=== PATIENT | female | born 1950 | race Hispanic/Latino ===

== ENCOUNTER 2022-09-02 11:56 | Emergency (ER) | payer OTHER ==
--- OUTSIDE RECORDS SUMMARY | 2022-09-02 12:01 | XMS REPORT | Continuity of Care Document ---
:1950 Author Organization [facility] t Address [address] [facility] [address] [place] [address] Care Team Providers Name Role Phone Pcp, Patient Does Not Have A Primary Care Physician [phone] Pob, [facility] Main Attending Clinician Unavailable Madiha Chow MD Attending Clinician MADIHA CHOW Attending Clinician Unavailable Doctor Unassigned, [place] Attending Clinician Unavailable JIGAR GAO Attending Clinician Unavailable Jigar Subramanian Attending Clinician URBANO SCHNEIDER Attending Clinician Unavailable Urbano Schneider MD Attending Clinician Radiology Attending Clinician Unavailable RADIOLOGY Attending Clinician Unavailable ALEX HICKS Attending Clinician Unavailable Alex Sanders Attending Clinician LIZ FORD Attending Clinician Unavailable Liz Ford DO Attending Clinician Skip Baptiste MD Attending Clinician SKIP BAPTISTE Attending Clinician Unavailable VAUGHN BARBA Attending Clinician Unavailable Vaughn Barba MD Attending Clinician JESSI VELASQUEZ Attending Clinician Unavailable WILLIAM DUMONT Attending Clinician Unavailable SEVERINO TAYLOR Attending Clinician Unavailable JIGAR GAO Admitting Clinician Unavailable URBANO SCHNEIDER Admitting Clinician Unavailable ALEX HICKS Admitting Clinician Unavailable LIZ FORD Admitting Clinician Unavailable VAUGHN BARBA Admitting Clinician Unavailable SEVERINO TAYLOR Admitting Clinician Unavailable Payers Payer Name Policy Type Policy Number Effective Date Expiration Date Ruchi rosario MEDICARE PART A [id number] 1993 \\T\\ B 00:00:[address] [facility] [id number] 2009 00:00:00 Problems Condition Condition Condition Status Onset Resolution Last Treating Co mments Source Name Details Category Date Date Treatment Clinician Date [place] Active 2017-04 Univers overdose overdose 2-21 ity of 00:00: [address] [place] Active 2017-04 Univers toxicity toxicity 2-21 ity of 00:00: [address] [place] Active 2017-04 Univers overdose overdose 2-21 ity of 00:00: [address] Allergies, Adverse Reactions, Alerts Allergy Allergy Status Severity Reaction(s) Onset Inactive Treating Comm ents Source Name Type Date Date Clinician NO KNOWN Drug Active Univers ALLERGIE Class ity of S [facility] Social History Social Habit Start Date Stop Date Quantity Comments Source History of Current smoker University of tobacco use [facility] Exposure to 2022-07-28 2022-08-07 Not sure [facility] SARS-CoV-2 00:00:00 09:53:00 [facility] (event) [place] Alcohol intake 2022-07-09 2022-07-09 Current University of 00:00:00 00:00:00 non-drinker of [facility] alcohol (finding) [place] Tobacco use and 2018-03-21 2018-03-21 Former smokeless Uni versity of exposure 00:00:00 00:00:[address] [facility] [place] Sex Assigned At [birth year] Universit y of 00:00:00 00:00:00 [facility] Smoking Status Start Date Stop Date Source Ex-smoker 2018-03-21 00:00:00 2018-03-21 00:00:00 Universi ty of [facility] Medications Ordered Filled Start Stop Current Ordering Indication Dosage Frequency Signature Comments Components Source Medication Medication Date Date Medication? Clinician (SIG) Name Name ibuprofen No 600mg 600 mg, Uni vers (IBU) 09-02 Oral, ity of tablet 600 05:30: 04:30 ONCE, 1 [place] mg 00 :00 dose, On Medical 09/02/21 Branch at 0030, [place] acetaminoph No 1000mg 1,000 mg, Univers en 09-02 Oral, ity of (TYLENOL) 05:30: 04:29 [place] dose, On Medical 1,000 mg 09/02/21 Bran h at 0030, [place] OXYBUTYNIN Yes BID Univers CHLORIDE 5 1-15 ity of MG ORAL TAB 10:50: [address] FLUoxetine Yes 20mg Take 20 mg U nivers 20 mg 1-15 by mouth ity of capsule 10:50: daily. [address] pantoprazol Yes 20mg Take 20 mg Univers e 20 mg EC 1-15 by mouth ity o f tablet 10:50: daily. [address] levothyroxi Yes 75ug Take 75 Uni vers ne 75 mcg 1-15 mcg by ity of tablet 10:50: mouth [place] [address] every Medical morning. Branch benztropine Yes 1mg Take 1 mg U nivers 1 mg tablet 1-15 by mouth ity of 10:50: daily. [address] QUEtiapine Yes 100mg Take 100 Un janey 100 mg 1-15 mg by ity of tablet 10:50: mouth [place] [address] daily. Medical Branch OXYBUTYNIN Yes BID Univers CHLORIDE 5 1-15 ity of MG ORAL TAB 10:50: [address] FLUoxetine Yes 20mg Take 20 mg U nivers 20 mg 1-15 by mouth ity of capsule 10:50: daily. [address] pantoprazol 0 Yes 20mg Take 20 mg Univers e 20 mg EC 1-15 by mouth ity o f tablet 10:50: daily. [address] levothyroxi 0 Yes 75ug Take 75 Uni vers ne 75 mcg 1-15 mcg by ity of tablet 10:50: mouth [place] 45 every Medical morning. Branch benztropine 0 Yes 1mg Take 1 mg U nivers 1 mg tablet 1-15 by mouth ity of 10:50: daily. [address] QUEtiapine 0 Yes 100mg Take 100 Un janey 100 mg 1-15 mg by ity of tablet 10:50: mouth [place] 45 daily. Medical Branch OXYBUTYNIN 0 Yes BID Univers CHLORIDE 5 1-15 ity of MG ORAL TAB 10:50: [address] FLUoxetine 0 Yes 20mg Take 20 mg U nivers 20 mg 1-15 by mouth ity of capsule 10:50: daily. [address] pantoprazol 0 Yes 20mg Take 20 mg Univers e 20 mg EC 1-15 by mouth ity o f tablet 10:50: daily. [address] levothyroxi Yes 75ug Take 75 Uni vers ne 75 mcg 1-15 mcg by ity of tablet 10:50: mouth [place] [address] every Medical morning. Branch benztropine 0 Yes 1mg Take 1 mg U nivers 1 mg tablet 1-15 by mouth ity of 10:50: daily. [address] QUEtiapine Yes 100mg Take 100 Un janey 100 mg 1-15 mg by ity of tablet 10:50: mouth [place] 45 daily. Medical Branch OXYBUTYNIN 0 Yes BID Univers CHLORIDE 5 1-15 ity of MG ORAL TAB 10:50: [address] FLUoxetine 0 Yes 20mg Take 20 mg U nivers 20 mg 1-15 by mouth ity of capsule 10:50: daily. [address] pantoprazol 0 Yes 20mg Take 20 mg Univers e 20 mg EC 1-15 by mouth ity o f tablet 10:50: daily. [address] levothyroxi 0 Yes 75ug Take 75 Uni vers ne 75 mcg 1-15 mcg by ity of tablet 10:50: mouth [place] 45 every Medical morning. Branch benztropine 0 Yes 1mg Take 1 mg U nivers 1 mg tablet 1-15 by mouth ity of 10:50: daily. [address] QUEtiapine 0 Yes 100mg Take 100 Un j[place] 100 mg 1-15 mg by ity of tablet 10:50: mouth [place] 45 daily. Medical Branch OXYBUTYNIN 0 Yes BID Univers CHLORIDE 5 1-15 ity of MG ORAL TAB 10:50: [address] FLUoxetine 0 Yes 20mg Take 20 mg U nivers 20 mg 1-15 by mouth ity of capsule 10:50: daily. [address] pantoprazol 0 Yes 20mg Take 20 mg Univers e 20 mg EC 1-15 by mouth ity o f tablet 10:50: daily. [address] Branch levothyroxi Yes 75ug Take 75 Uni vers ne 75 mcg 1-15 mcg by ity of tablet 10:50: mouth [place] 45 every Medical morning. Branch benztropine 0 Yes 1mg Take 1 mg U nivers 1 mg tablet 1-15 by mouth ity of 10:50: daily. [address] QUEtiapine Yes 100mg Take 100 Un janey 100 mg 1-15 mg by ity of tablet 10:50: mouth [place] 45 daily. Medical Branch OXYBUTYNIN 0 Yes BID Univers CHLORIDE 5 1-15 ity of MG ORAL TAB 10:50: [address] FLUoxetine Yes 20mg Take 20 mg U nivers 20 mg 1-15 by mouth ity of capsule 10:50: daily. [address] pantoprazol Yes 20mg Take 20 mg Univers e 20 mg EC 1-15 by mouth ity o f tablet 10:50: daily. [address] levothyroxi 0 Yes 75ug Take 75 Uni vers ne 75 mcg 1-15 mcg by ity of tablet 10:50: mouth [place] 45 every Medical morning. Branch benztropine 0 Yes 1mg Take 1 mg U nivers 1 mg tablet 1-15 by mouth ity of 10:50: daily. [address] QUEtiapine 0 Yes 100mg Take 100 Un janey 100 mg 1-15 mg by ity of tablet 10:50: mouth [place] 45 daily. Medical Branch OXYBUTYNIN 0 Yes BID Univers CHLORIDE 5 1-15 ity of MG ORAL TAB 10:50: [address] FLUoxetine 0 Yes 20mg Take 20 mg U nivers 20 mg 1-15 by mouth ity of capsule 10:50: daily. [address] pantoprazol 0 Yes 20mg Take 20 mg Univers e 20 mg EC 1-15 by mouth ity o f tablet 10:50: daily. [address] levothyroxi 0 Yes 75ug Take 75 Uni vers ne 75 mcg 1-15 mcg by ity of tablet 10:50: mouth [place] [address] every Medical morning. Branch benztropine 0 Yes 1mg Take 1 mg U nivers 1 mg tablet 1-15 by mouth ity of 10:50: daily. [address] QUEtiapine 0 Yes 100mg Take 100 Un janey 100 mg 1-15 mg by ity of tablet 10:50: mouth [place] 45 daily. Medical Branch OXYBUTYNIN 0 Yes BID Univers CHLORIDE 5 1-15 ity of MG ORAL TAB 10:50: [address] FLUoxetine Yes 20mg Take 20 mg U nivers 20 mg 1-15 by mouth ity of capsule 10:50: daily. [address] pantoprazol 0 Yes 20mg Take 20 mg Univers e 20 mg EC 1-15 by mouth ity o f tablet 10:50: daily. [address] levothyroxi 0 Yes 75ug Take 75 Uni vers ne 75 mcg 1-15 mcg by ity of tablet 10:50: mouth [place] [address] every Medical morning. Branch benztropine 0 Yes 1mg Take 1 mg U nivers 1 mg tablet 1-15 by mouth ity of 10:50: daily. [address] QUEtiapine 0 Yes 100mg Take 100 Un [place] 100 mg 1-15 mg by ity of tablet 10:50: mouth [place] [address] daily. Medical Branch OXYBUTYNIN 0 Yes BID Univers CHLORIDE 5 1-15 ity of MG ORAL TAB 10:50: [address] FLUoxetine 0 Yes 20mg Take 20 mg U nivers 20 mg 1-15 by mouth ity of capsule 10:50: daily. [address] pantoprazol 0 Yes 20mg Take 20 mg Univers e 20 mg EC 1-15 by mouth ity o f tablet 10:50: daily. [address] levothyroxi 0 Yes 75ug Take 75 Uni vers ne 75 mcg 1-15 mcg by ity of tablet 10:50: mouth [place] 45 every Medical morning. Branch benztropine 0 Yes 1mg Take 1 mg U nivers 1 mg tablet 1-15 by mouth ity of 10:50: daily. [address] QUEtiapine 0 Yes 100mg Take 100 Un [place]aney 100 mg 1-15 mg by ity of tablet 10:50: mouth [place] 45 daily. Medical Branch OXYBUTYNIN 0 Yes BID Univers CHLORIDE 5 1-15 ity of MG ORAL TAB 10:50: [address] FLUoxetine 0 Yes 20mg Take 20 mg U nivers 20 mg 1-15 by mouth ity of capsule 10:50: daily. [address] pantoprazol 0 Yes 20mg Take 20 mg Univers e 20 mg EC 1-15 by mouth ity o f tablet 10:50: daily. [address] levothyroxi 0 Yes 75ug Take 75 Uni vers ne 75 mcg 1-15 mcg by ity of tablet 10:50: mouth [place] [address] every Medical morning. Branch benztropine 0 Yes 1mg Take 1 mg U nivers 1 mg tablet 1-15 by mouth ity of 10:50: daily. [address] QUEtiapine 0 Yes 100mg Take 100 Un [place] 100 mg 1-15 mg by ity of tablet 10:50: mouth [place] [address] daily. Medical Branch OXYBUTYNIN 0 Yes BID Univers CHLORIDE 5 1-15 ity of MG ORAL TAB 10:50: [address] FLUoxetine 0 Yes 20mg Take 20 mg U nivers 20 mg 1-15 by mouth ity of capsule 10:50: daily. [address] pantoprazol 0 Yes 20mg Take 20 mg Univers e 20 mg EC 1-15 by mouth ity o f tablet 10:50: daily. [address] levothyroxi 0 Yes 75ug Take 75 Uni vers ne 75 mcg 1-15 mcg by ity of tablet 10:50: mouth [place] 45 every Medical morning. Branch benztropine 0 Yes 1mg Take 1 mg U nivers 1 mg tablet 1-15 by mouth ity of 10:50: daily. [address] QUEtiapine 0 Yes 100mg Take 100 Un janey 100 mg 1-15 mg by ity of tablet 10:50: mouth [place] 45 daily. Medical Branch OXYBUTYNIN 0 Yes BID Univers CHLORIDE 5 1-15 ity of MG ORAL TAB 10:50: [address] FLUoxetine Yes 20mg Take 20 mg U nivers 20 mg 1-15 by mouth ity of capsule 10:50: daily. [address] pantoprazol Yes 20mg Take 20 mg Univers e 20 mg EC 1-15 by mouth ity o f tablet 10:50: daily. [address] levothyroxi Yes 75ug Take 75 Uni vers ne 75 mcg 1-15 mcg by ity of tablet 10:50: mouth [place] 45 every Medical morning. Branch benztropine Yes 1mg Take 1 mg U nivers 1 mg tablet 1-15 by mouth ity of 10:50: daily. [address] QUEtiapine Yes 100mg Take 100 Un janey 100 mg 1-15 mg by ity of tablet 10:50: mouth [place] 45 daily. Medical Branch OXYBUTYNIN Yes BID Univers CHLORIDE 5 1-15 ity of MG ORAL TAB 10:50: [address] FLUoxetine Yes 20mg Take 20 mg U nivers 20 mg 1-15 by mouth ity of capsule 10:50: daily. [address] pantoprazol Yes 20mg Take 20 mg Univers e 20 mg EC 1-15 by mouth ity o f tablet 10:50: daily. [address] levothyroxi 0 Yes 75ug Take 75 Uni vers ne 75 mcg 1-15 mcg by ity of tablet 10:50: mouth [place] 45 every Medical morning. Branch benztropine 0 Yes 1mg Take 1 mg U nivers 1 mg tablet 1-15 by mouth ity of 10:50: daily. [address] QUEtiapine Yes 100mg Take 100 Un janey 100 mg 1-15 mg by ity of tablet 10:50: mouth [place] 45 daily. Medical Branch diclofenac 2020-1 Yes Univers 75 mg EC 2-03 ity of tablet 00:00: [place] Medical Branch diclofenac 2019-04 Yes Univers 75 mg EC 2-03 ity of tablet 00:00: [place] Medical Branch diclofenac 2019-04 Yes Univers 75 mg EC 2-03 ity of tablet 00:00: [place] Medical Branch diclofenac 2019-04 Yes Univers 75 mg EC 2-03 ity of tablet 00:00: [place] Medical Branch diclofenac 2019-04 Yes Univers 75 mg EC 2-03 ity of tablet 00:00: [place] Medical Branch diclofenac 2019-04 Yes Univers 75 mg EC 2-03 ity of tablet 00:00: [place] Medical Branch diclofenac 2019-04 Yes Univers 75 mg EC 2-03 ity of tablet 00:00: [place] [address] Medical Branch diclofenac 2019-04 Yes Univers 75 mg EC 2-03 ity of tablet 00:00: [place] [address] Medical Branch diclofenac 2019-04 Yes Univers 75 mg EC 2-03 ity of tablet 00:00: [place] [address] Medical Branch diclofenac 2019-04 Yes Univers 75 mg EC 2-03 ity of tablet 00:00: [place] [facility] Branch diclofenac 2019-04 Yes Univers 75 mg EC 2-03 ity of tablet 00:00: [place] [address] Medical Branch diclofenac 2019-04 Yes Univers 75 mg EC 2-03 ity of tablet 00:00: [place] [address] Medical Branch diclofenac 2019-04 Yes Univers 75 mg EC 2-03 ity of tablet 00:00: [place] [address] Medical Branch METFORMIN 2017-04 Yes 1 tab po Univ ers 1,000 MG 2-23 BID ity of ORAL TAB 12:14: [address] ARTIFICIAL 2017-04 Yes prn Univers TEAR (DEXT 2-23 ity of 40-HPM) 12:14: [address] TYLENOL 2017-04 Yes 2tabs po Univer s EXTRA 2-23 BID prn ity of STRENGTH 12:14: [place] [address] [place] [address] TAB Branch BENADRYL 2017-04 Yes 50mg po Univer s ALLERGY 25 2-23 q12hrs prn ity of MG ORAL TAB 12:14: [address] METFORMIN 2017-04 Yes 1 tab po Univ ers 1,000 MG 2-23 BID ity of ORAL TAB 12:14: [address] ARTIFICIAL 2017-04 Yes prn Univers TEAR (DEXT 2-23 ity of 40-HPM) 12:14: [address] TYLENOL 2017-04 Yes 2tabs po Univer s EXTRA 2-23 BID prn ity of STRENGTH 12:14: [place] 500 MG ORAL Medical TAB Branch BENADRYL 2018 Yes 50mg po Univer s ALLERGY 25 2-23 q12hrs prn ity of MG ORAL TAB 12:14: [address] METFORMIN 2018 Yes 1 tab po Univ ers 1,000 MG 2-23 BID ity of ORAL TAB 12:14: [place] [address] Medical Branch ARTIFICIAL 2017-04 Yes prn Univers TEAR (DEXT 2-23 ity of 40-HPM) 12:14: [place] [address] Medical Branch TYLENOL 2017- Yes 2tabs po Univer s EXTRA 2-23 BID prn ity of STRENGTH 12:14: [place] 500 MG ORAL Medical TAB Branch BENADRYL 2017-04 Yes 50mg po Univer s ALLERGY 25 2-23 q12hrs prn ity of MG ORAL TAB 12:14: [address] METFORMIN 2018- Yes 1 tab po Univ ers 1,000 MG 2-23 BID ity of ORAL TAB 12:14: [place] [address] Medical Branch ARTIFICIAL 2017-04 Yes prn Univers TEAR (DEXT 2-23 ity of 40-HPM) 12:14: [place] [address] Medical Branch TYLENOL 2017- Yes 2tabs po Univer s EXTRA 2-23 BID prn ity of STRENGTH 12:14: [place] 500 MG ORAL Medical TAB Branch BENADRYL 2017-04 Yes 50mg po Univer s ALLERGY 25 2-23 q12hrs prn ity of MG ORAL TAB 12:14: [address] METFORMIN 2018- Yes 1 tab po Univ ers 1,000 MG 2-23 BID ity of ORAL TAB 12:14: [place] [address] Medical [place] ARTIFICIAL 2018 Yes prn Univers TEAR (DEXT 2-23 ity of 40-HPM) 12:14: [place] [address] Medical Branch TYLENOL 2018- Yes 2tabs po Univer s EXTRA 2-23 BID prn ity of STRENGTH 12:14: [place] 500 MG ORAL Medical TAB Branch BENADRYL 2018 Yes 50mg po Univer s ALLERGY 25 2-23 q12hrs prn ity of MG ORAL TAB 12:14: [address] METFORMIN 2018- Yes 1 tab po Univ ers 1,000 MG 2-23 BID ity of ORAL TAB 12:14: [place] [address] Medical Branch ARTIFICIAL 2017-04 Yes prn Univers TEAR (DEXT 2-23 ity of 40-HPM) 12:14: [address] Branch TYLENOL 2017-04 Yes 2tabs po Univer s EXTRA 2-23 BID prn ity of STRENGTH 12:14: [place] 500 MG ORAL Medical TAB Branch BENADRYL 2018 Yes 50mg po Univer s ALLERGY 25 2-23 q12hrs prn ity of MG ORAL TAB 12:14: [address] Branch METFORMIN 2018 Yes 1 tab po Univ ers 1,000 MG 2-23 BID ity of ORAL TAB 12:14: [place] [address] Medical Branch ARTIFICIAL 2017-04 Yes prn Univers TEAR (DEXT 2-23 ity of 40-HPM) 12:14: [address] Branch TYLENOL 2017-04 Yes 2tabs po Univer s EXTRA 2-23 BID prn ity of STRENGTH 12:14: [place] 500 MG ORAL Medical TAB Branch BENADRYL 2017-04 Yes 50mg po Univer s ALLERGY 25 2-23 q12hrs prn ity of MG ORAL TAB 12:14: [address] METFORMIN 2018 Yes 1 tab po Univ ers 1,000 MG 2-23 BID ity of ORAL TAB 12:14: [address] ARTIFICIAL 2017-04 Yes prn Univers TEAR (DEXT 2-23 ity of 40-HPM) 12:14: [address] Branch TYLENOL 2017-04 Yes 2tabs po Univer s EXTRA 2-23 BID prn ity of STRENGTH 12:14: [place] 500 MG ORAL Medical TAB Branch BENADRYL 2018 Yes 50mg po Univer s ALLERGY 25 2-23 q12hrs prn ity of MG ORAL TAB 12:14: [address] METFORMIN 2018- Yes 1 tab po Univ ers 1,000 MG 2-23 BID ity of ORAL TAB 12:14: [address] Branch ARTIFICIAL 2018 Yes prn Univers TEAR (DEXT 2-23 ity of 40-HPM) 12:14: [place] [address] Medical Branch TYLENOL 2017-04 Yes 2tabs po Univer s EXTRA 2-23 BID prn ity of STRENGTH 12:14: [place] 500 MG ORAL Medical TAB Branch BENADRYL 2017-04 Yes 50mg po Univer s ALLERGY 25 2-23 q12hrs prn ity of MG ORAL TAB 12:14: [address] METFORMIN 2018 Yes 1 tab po Univ ers 1,000 MG 2-23 BID ity of ORAL TAB 12:14: [address] ARTIFICIAL 2017-04 Yes prn Univers TEAR (DEXT 2-23 ity of 40-HPM) 12:14: [address] Branch TYLENOL 2017-04 Yes 2tabs po Univer s EXTRA 2-23 BID prn ity of STRENGTH 12:14: [place] 500 MG ORAL Medical TAB Branch BENADRYL 2017-04 Yes 50mg po Univer s ALLERGY 25 2-23 q12hrs prn ity of MG ORAL TAB 12:14: [address] METFORMIN 2017-04 Yes 1 tab po Univ ers 1,000 MG 2-23 BID ity of ORAL TAB 12:14: [address] ARTIFICIAL 2017-04 Yes prn Univers TEAR (DEXT 2-23 ity of 40-HPM) 12:14: [address] TYLENOL 2017-04 Yes 2tabs po Univer s EXTRA 2-23 BID prn ity of STRENGTH 12:14: [place] 500 MG ORAL Medical TAB Branch BENADRYL 2017-04 Yes 50mg po Univer s ALLERGY 25 2-23 q12hrs prn ity of MG ORAL TAB 12:14: [address] METFORMIN 2017-04 Yes 1 tab po Univ ers 1,000 MG 2-23 BID ity of ORAL TAB 12:14: [address] ARTIFICIAL 2017-04 Yes prn Univers TEAR (DEXT 2-23 ity of 40-HPM) 12:14: [address] TYLENOL 2017-04 Yes 2tabs po Univer s EXTRA 2-23 BID prn ity of STRENGTH 12:14: [place] 500 MG ORAL Medical TAB Branch BENADRYL 2017-04 Yes 50mg po Univer s ALLERGY 25 2-23 q12hrs prn ity of MG ORAL TAB 12:14: [address] METFORMIN 2017-04 Yes 1 tab po Univ ers 1,000 MG 2-23 BID ity of ORAL TAB 12:14: [address] ARTIFICIAL 2017-04 Yes prn Univers TEAR (DEXT 2-23 ity of 40-HPM) 12:14: [place] OPHTHALMIC 36 Medical Branch TYLENOL 2017-04 Yes 2tabs po Univer s EXTRA 2-23 BID prn ity of STRENGTH 12:14: [place] 500 MG ORAL 36 Medical TAB Branch BENADRYL 2017-04 Yes 50mg po Univer s ALLERGY 25 2-23 q12hrs prn ity of MG ORAL TAB 12:14: [place] 36 Medical Branch lithium 2017-04 Yes 300mg Take 1 Univers carbonate 2-23 tablet by ity o f 300 mg 00:00: mouth 2 [place] tablet 00 (two) Medical times Branch daily. cyanocobala 2017-04 Yes 1000ug Take 1,000 Univers min, 2-23 mcg by ity of vitamin 00:00: mouth [place] B-12, 1,000 00 daily. Medica l mcg Cap Branch lithium 2017-04 Yes 300mg Take 1 Univers carbonate 2-23 tablet by ity o f 300 mg 00:00: mouth 2 [place] tablet 00 (two) Medical times Branch daily. cyanocobala 2017-04 Yes 1000ug Take 1,000 Univers min, 2-23 mcg by ity of vitamin 00:00: mouth [place] B-12, 1,000 00 daily. Medica l mcg Cap Branch lithium 2017-04 Yes 300mg Take 1 Univers carbonate 2-23 tablet by ity o f 300 mg 00:00: mouth 2 [place] tablet 00 (two) Medical times Branch daily. cyanocobala 2017-04 Yes 1000ug Take 1,000 Univers min, 2-23 mcg by ity of vitamin 00:00: mouth [place] B-12, 1,000 00 daily. Medica l mcg Cap [place] lithium 2017-04 Yes 300mg Take 1 Univers carbonate 2-23 tablet by ity o f 300 mg 00:00: mouth 2 [place] tablet 00 (two) Medical times Branch daily. cyanocobala 2017-04 Yes 1000ug Take 1,000 Univers min, 2-23 mcg by ity of vitamin 00:00: mouth [place] B-12, 1,000 00 daily. Medica l mcg Cap [place] lithium 2017-04 Yes 300mg Take 1 Univers carbonate 2-23 tablet by ity o f 300 mg 00:00: mouth 2 [place] tablet 00 (two) Medical times Branch daily. cyanocobala 2017-04 Yes 1000ug Take 1,000 Univers min, 2-23 mcg by ity of vitamin 00:00: mouth [place] B-12, 1,000 00 daily. Medica l mcg Cap Branch lithium 2017-04 Yes 300mg Take 1 Univers carbonate 2-23 tablet by ity o f 300 mg 00:00: mouth 2 [place] tablet 00 (two) Medical times Branch daily. cyanocobala 2017-04 Yes 1000ug Take 1,000 Univers min, 2-23 mcg by ity of vitamin 00:00: mouth [place] B-12, 1,000 00 daily. Medica l mcg Cap [place] lithium 2017-04 Yes 300mg Take 1 Univers carbonate 2-23 tablet by ity o f 300 mg 00:00: mouth 2 [place] tablet 00 (two) Medical times Branch daily. cyanocobala 2017-04 Yes 1000ug Take 1,000 Univers min, 2-23 mcg by ity of vitamin 00:00: mouth [place] B-12, 1,000 00 daily. Medica l mcg Cap [place] lithium 2017-04 Yes 300mg Take 1 Univers carbonate 2-23 tablet by ity o f 300 mg 00:00: mouth 2 [place] tablet 00 (two) Medical times Branch daily. cyanocobala 2017-04 Yes 1000ug Take 1,000 Univers min, 2-23 mcg by ity of vitamin 00:00: mouth [place] B-12, 1,000 00 daily. Medica l mcg Cap [place] lithium 2017-04 Yes 300mg Take 1 Univers carbonate 2-23 tablet by ity o f 300 mg 00:00: mouth 2 [place] tablet 00 (two) Medical times Branch daily. cyanocobala 2017-04 Yes 1000ug Take 1,000 Univers min, 2-23 mcg by ity of vitamin 00:00: mouth [place] B-12, 1,000 00 daily. Medica l mcg Cap [place] lithium 2017-04 Yes 300mg Take 1 Univers carbonate 2-23 tablet by ity o f 300 mg 00:00: mouth 2 [place] tablet 00 (two) Medical times Branch daily. cyanocobala 2017-04 Yes 1000ug Take 1,000 Univers min, 2-23 mcg by ity of vitamin 00:00: mouth [place] B-12, 1,000 00 daily. Medica l mcg Cap [place] lithium 2017-04 Yes 300mg Take 1 Univers carbonate 2-23 tablet by ity o f 300 mg 00:00: mouth 2 [place] tablet 00 (two) Medical times Branch daily. cyanocobala 2017-04 Yes 1000ug Take 1,000 Univers min, 2-23 mcg by ity of vitamin 00:00: mouth [place] B-12, 1,000 00 daily. Medica l mcg Cap Branch lithium 2017-04 Yes 300mg Take 1 Univers carbonate 2-23 tablet by ity o f 300 mg 00:00: mouth 2 [place] tablet 00 (two) Medical times Branch daily. cyanocobala 2017-04 Yes 1000ug Take 1,000 Univers min, 2-23 mcg by ity of vitamin 00:00: mouth [place] B-12, 1,000 00 daily. Medica l mcg Cap Branch lithium 2017-04 Yes 300mg Take 1 Univers carbonate 2-23 tablet by ity o f 300 mg 00:00: mouth 2 [place] tablet 00 (two) Medical times Branch daily. cyanocobala 2017-04 Yes 1000ug Take 1,000 Univers min, 2-23 mcg by ity of vitamin 00:00: mouth [place] B-12, 1,000 00 daily. [facility] Immunizations Ordered Filled Immunization Date Status Comments [facility] e Immunization Name Name Td 2021-06-15 Completed University of 00:00:00 [facility] Td 2021-06-15 Completed University of 00:00:00 [facility] Td 2021-06-15 Completed University of 00:00:00 [facility] Td 2021-06-15 Completed University of 00:00:00 [facility] Td 2021-06-15 Completed University of 00:00:00 [facility] Td 2021-06-15 Completed University of 00:00:00 [facility] Td 2021-06-15 Completed University of 00:00:00 [facility] Td 2021-06-15 Completed University of 00:00:00 [facility] Td 2021-06-15 Completed University of 00:00:00 [facility] Td 2021-06-15 Completed University of 00:00:00 [facility] TD, NOS 2021-06-15 Completed University of 00:00:00 [facility] TD, NOS 2021-06-15 Completed University of 00:00:00 [facility] TD, NOS 2021-06-15 Completed University of 00:00:00 [facility] SARS-COV-2 COVID-19 2020-07-07 Completed [facility] VACCINE 00:00:00 [place] [facility] SARS-COV-2 COVID-19 2020-07-07 Completed Unive rsity of PFIZER VACCINE 00:00:00 [facility] SARS-COV-2 COVID-19 2020-07-07 Completed Unive rsity of PFIZER VACCINE 00:00:00 [facility] SARS-COV-2 COVID-19 2020-07-07 Completed Unive rsity of PFIZER VACCINE 00:00:00 [facility] SARS-COV-2 COVID-19 2020-07-07 Completed Unive rsity of PFIZER VACCINE 00:00:00 [facility] SARS-COV-2 COVID-19 2020-07-07 Completed Unive rsity of PFIZER VACCINE 00:00:00 [facility] SARS-COV-2 COVID-19 2020-07-07 Completed Unive rsity of PFIZER VACCINE 00:00:00 [facility] SARS-COV-2 COVID-19 2020-07-07 Completed Unive rsity of PFIZER VACCINE 00:00:00 [facility] SARS-COV-2 COVID-19 2020-07-07 Completed Unive rsity of PFIZER VACCINE 00:00:00 [facility] SARS-COV-2 COVID-19 2020-07-07 Completed Unive rsity of PFIZER VACCINE 00:00:00 [facility] SARS-COV-2 COVID-19 2020-07-07 Completed Unive rsity of PFIZER VACCINE 00:00:00 [facility] SARS-COV-2 COVID-19 2020-07-07 Completed Unive rsity of PFIZER VACCINE 00:00:00 [facility] SARS-COV-2 COVID-19 2020-07-07 Completed Unive rsity of PFIZER VACCINE 00:00:00 [facility] SARS-COV-2 COVID-19 2020-06-15 Completed Unive rsity of PFIZER VACCINE 00:00:00 [facility] SARS-COV-2 COVID-19 2020-06-15 Completed Unive rsity of PFIZER VACCINE 00:00:00 [facility] SARS-COV-2 COVID-19 2020-06-15 Completed Unive rsity of PFIZER VACCINE 00:00:00 [facility] SARS-COV-2 COVID-19 2020-06-15 Completed Unive rsity of PFIZER VACCINE 00:00:00 [facility] SARS-COV-2 COVID-19 2020-06-15 Completed Unive rsity of PFIZER VACCINE 00:00:00 [facility] SARS-COV-2 COVID-19 2020-06-15 Completed Unive rsity of PFIZER VACCINE 00:00:00 [facility] SARS-COV-2 COVID-19 2020-06-15 Completed Unive rsity of PFIZER VACCINE 00:00:00 [facility] SARS-COV-2 COVID-19 2020-06-15 Completed Unive rsity of PFIZER VACCINE 00:00:00 [facility] SARS-COV-2 COVID-19 2020-06-15 Completed Unive rsity of PFIZER VACCINE 00:00:00 [facility] SARS-COV-2 COVID-19 2020-06-15 Completed Unive rsity of PFIZER VACCINE 00:00:00 [facility] SARS-COV-2 COVID-19 2020-06-15 Completed Unive rsity of PFIZER VACCINE 00:00:00 [facility] SARS-COV-2 COVID-19 2020-06-15 Completed Unive rsity of PFIZER VACCINE 00:00:00 [facility] SARS-COV-2 COVID-19 2020-06-15 Completed Unive rsity of PFIZER VACCINE 00:00:00 [facility] Td 2020-04-07 Completed University of 00:00:00 [facility] Td 2020-04-07 Completed University of 00:00:00 [facility] Td 2020-04-07 Completed University of 00:00:00 [facility] Td 2020-04-07 Completed University of 00:00:00 [facility] Td 2020-04-07 Completed University of 00:00:00 [facility] Td 2020-04-07 Completed University of 00:00:00 [facility] Td 2020-04-07 Completed University of 00:00:00 [facility] Td 2020-04-07 Completed University of 00:00:00 [facility] Td 2020-04-07 Completed University of 00:00:00 [facility] Td 2020-04-07 Completed University of 00:00:00 [facility] TD, NOS 2020-04-07 Completed [facility] 00:00:00 [place] [facility] TD, NOS 2020-04-07 Completed University 00:00:00 [place] [facility] TD, NOS 2020-04-07 Completed University 00:00:00 [facility] Vital Signs Vital Name Observation Time Observation Value Comments Source Systolic blood 2022-07-09 13:00:00 134 mm[Hg] Univer sity of pressure [place] [facility] Diastolic blood 2022-07-09 13:00:00 73 mm[Hg] Unive rsity of pressure [facility] Heart rate 2022-07-09 13:00:00 81 /min Universi ty of [place] [facility] Body temperature 2022-07-09 13:00:00 36.22 Glenny Univ ersity of [place] [facility] Respiratory rate 2022-07-09 13:00:00 18 /min Univ ersity of [place] [facility] Body height 2022-07-09 13:00:00 167.6 cm Universi ty [facility] [place] [facility] Body weight 2022-07-09 13:00:00 49.896 kg Universi ty [facility] [place] [facility] BMI 2022-07-09 13:00:00 17.75 kg/m2 Universi ty [facility] [place] [facility] Oxygen saturation in 2022-07-09 13:00:00 99 /min University of Arterial blood by [facility] Pulse oximetry Branch Systolic blood 2021-10-18 02:42:00 129 mm[Hg] Univer sity of pressure [facility] Diastolic blood 2021-10-18 02:42:00 77 mm[Hg] Unive rsity of pressure [facility] Heart rate 2021-10-18 02:42:00 66 /min Universi ty [facility] [place] [facility] Body temperature 2021-10-18 02:42:00 37.06 Glenny Univ ersity of [place] [facility] Respiratory rate 2021-10-18 02:42:00 20 /min Univ ersity of [place] [facility] Body height 2021-10-18 02:42:00 167.6 cm [facility]i [facility] [place] [facility] Body weight 2021-10-18 02:42:00 49.76 kg Universi ty [facility] [place] [facility] BMI 2021-10-18 02:42:00 17.71 kg/m2 Universi ty [facility] [place] [facility] Oxygen saturation in 2021-10-18 02:42:00 97 /min University of Arterial blood by [facility] Pulse oximetry Branch Systolic blood 2021-09-02 02:40:00 143 mm[Hg] Univer sity of pressure [facility] Diastolic blood 2021-09-02 02:40:00 83 mm[Hg] Unive rsity of [facility] Heart rate 2021-09-02 02:40:00 83 /min Universi ty [facility] Body temperature 2021-09-02 02:40:00 37.78 Glenny [facility] Respiratory rate 2021-09-02 02:40:00 18 /min Univ ersity of [facility] Body weight 2021-09-02 02:40:00 50.485 kg Universi ty [facility] BMI 2021-09-02 02:40:00 17.96 kg/m2 Universi ty [facility] Oxygen saturation in 2021-09-02 02:40:00 96 /min University of Arterial blood by [facility] Pulse oximetry Branch Systolic blood 2021-07-28 06:00:00 126 mm[Hg] Univer sity of [facility] Diastolic blood 2021-07-28 06:00:00 65 mm[Hg] Unive rsity of [facility] Respiratory rate 2021-07-28 06:00:00 16 /min [facility] O[facility] saturation in 2021-07-28 06:00:00 99 /min University of Arterial blood by [facility] Pulse oximetry Branch Heart rate 2021-07-28 05:00:00 67 /min Universi ty [facility] Body temperature 2021-07-28 04:46:00 37.06 Glenny [facility] Body height 2021-07-28 04:46:00 167.6 cm Universi ty [facility] Body weight 2021-07-28 04:46:00 44.815 kg Univers ty [facility] BMI 2021-07-28 04:46:00 15.95 kg/m2 [facility] Procedures Procedure Date / Time Performed Performing Clinician Sourc e CBC WITH DIFF 2022-08-07 15:24:00 Skip Baptiste [facility] PHYSICIAN ORDERS 2022-08-07 05:01:00 Doctor Unassigned, No [facility] [place] Name [facility] XR CHEST 1 VW 2022-07-09 14:05:47 Jigar Gao [facility] Medical Branch PHYSICIAN ORDERS 2022-02-28 06:01:00 Doctor Unassigned, No [facility] Medical Branch XR FOOT 3+ VW LEFT 2021-10-18 03:15:35 Urbano Schneider [facility] XR KNEE 3 VW BILATERAL 2021-10-18 03:15:35 Urbano Schneider [facility]REFUSAL FOR 2021-10-18 02:36:32 Doctor Unassigned, No [facility] [place] DI[facility]NOSIS AND Name Medical Branch TREATMENT XR HAND 3+ VW LEFT 2021-09-27 15:18:08 Cash [facility] XR KNEE 3 VW RIGHT 2021-09-27 15:17:29 Cash [facility] NOTICE OF PRIVACY 2021-09-27 14:40:01 Doctor Unassigned, No Univ ersity [facility] Medical Branch CONSENT/REFUSAL FOR 2021-09-27 14:39:36 Doctor Unassigned, No [facility] Medical Branch TREATMENT ASSIGNMENT OF BENEFITS 2021-09-27 14:38:29 Doctor Unassigned, No [facility] [place] XR ELBOW >3 VW LEFT 2021-09-02 03:16:53 Alex Hicks [facility] XR FOREARM 2 VW LEFT 2021-09-02 03:16:53 Alex Hicks [facility] [place] XR HUMERUS 2 VW LEFT 2021-09-02 03:16:53 Alex Hicks [facility] Branch CONSENT/REFUSAL FOR 2021-09-02 02:32:15 Doctor Unassigned, No Un i[facility] of [place] DIAGNOSIS AND Name Medical Branch TREATMENT CT TRAUMA HEAD WO 2021-07-28 05:37:00 Liz Ford [facility] CONTRAST Medical Branch CT TRAUMA CERVICAL 2021-07-28 05:37:00 Liz Ford [facility] SPINE WO CONTRAST Medical Branch PHOSPHORUS 2021-06-21 15:00:00 Skip Baptiste [facility] URIC ACID 2021-06-21 15:00:00 [facility] 2021-06-21 15:00:00 Skip Baptiste [facility] VITAMIN B12, LEVEL 2021-06-21 15:00:00 Skip Baptiste Andriy [facility] IONIZED CALCIUM 2021-06-21 15:00:00 [facility] HEPATIC FUNCTION PANEL 2021-06-21 15:00:00 Skip Baptiste [facility] ([id number]) Medical Branch (ALB,T.PRO,BILI T,BU/BC,ALT,AST,ALK PHOS) BASIC METABOLIC PANEL 2021-06-21 15:00:00 Skip Baptiste [facility] (NA, K, CL, CO2, Medical Branch GLUCOSE, BUN, CREATININE, CA) LIPID PANEL 2021-06-21 15:00:00 Skip Baptiste [facility] ([id number])(TOTAL Medical Branch CHOLESTEROL, TRIGLYCERIDES, HDL) LITHIUM 2021-06-21 15:00:00 Skip Baptiste [facility] CBC WITH DIFF 2021-06-21 15:00:00 Emile Skip [facility] VITAMIN D, 25-OH 2021-06-21 15:00:00 [facility] 2021-06-21 05:01:00 Doctor Unassigned, No [facility] Encounters Start End Encounter Admission Attending Care Care Encounter Source Date/Time Date/Time Type Type Clinicians Facility Department ID 2022-08-10 Outpatient STLMLC STLMLC [id number] Common 11:19:[id number] [facility] 2021-09-27 Outpatient STLMLC STLMLC [id number] Common 09:56:[address] [facility] 2021-09-26 Outpatient STLMLC STLMLC [id number] Common 09:17:[address] [facility] 2021-09-25 Outpatient STLMLC STLMLC [id number] Common 13:48:03 Spirit - [facility] 2021-01-29 Emergency [facility] [id number] Univers 15:07:50 ity of [facility] 2021-01-28 Emergency [facility] [id number] Univers 15:53:49 ity of [facility] 2021-01-28 Emergency [facility] [id number] Univers 12:01:43 ity of [facility] 2022-08-07 2022-08-07 Shelter Case Manager Latasha, Adc Lab Main [facility] 1.2.8 40.114 [id number] Univers 10:00:00 10:15:00 [id number] [id number] [id number] [address] 2022-08-07 2022-08-07 Outpatient Gustavo CHOW [facility] [id number] Univers 10:00:00 10:00:00 [facility]-07 2022-08-07 Orders Doctor CONRAD [id number] Univers 00:00:00 00:00:00 Only Unassigned, DANAY [id number] ity of [place] [facility] 4.2.7.2.686 Nikita [id number] [facility] [address] [place] 2022-07-09 2022-07-09 Emergency [facility] [id number] Univers 07:58:00 09:34:00 EDYO ity [facility] 2022-07-09 2022-07-09 Emergency [facility] [id number] Univers 07:58:00 09:34:00 Jigar MCKEON [id number] ity [facility] 4.2.7.2.686 [facility] [id number] [facility] 084 Branch 2022-02-28 2022-02-28 Shelter Case Manager Latasha, Adc Lab Main [facility] 1.2.8 40.114 [id number] Univers 08:45:00 09:00:00 Visit Madiha Chow LINDA [id number] ity [facility] [place] [phone] Pa dical NAL [address] [facility] 2022-02-28 2022-02-28 Outpatient R CLAUDINE [facility] [id number] Univers 08:45:00 08:45:00 MADIHA ity of [facility] 2022-02-28 2022-02-28 Orders Doctor CONRAD 1.2.840.114 [id number] Univers 00:00:00 00:00:00 Only Unassigned, DANAY [id number] ity of [place] [facility] 4.2.7.2.686 Nikita as [id number] [facility] [address] [place] 2021-10-17 2021-10-17 Emergency X [facility] ERT [id number] Univers 21:49:00 23:05:00 URBANO bell of [facility] 2021-10-17 2021-10-17 Emergency [facility] [id number] Univers 21:49:00 23:05:00 Urbano MCKEON [id number] ity of [place] [id number] [facility] [address] [place] 2021-09-27 2021-09-27 Hospital Radiology [facility] 1.2.840.114 [id number] Univers 09:35:31 23:59:00 Encounter LINDA [id number] ity [place] [id number] [facility] [address] [place] 2021-09-27 2021-09-27 Shelter Case Manager Latasha, Chanda Lab Main [facility] 1.2.8 40.114 [id number] Univers 10:30:00 10:45:00 Visit Madiha Chow LINDA [id number] ity of [facility] 4[place] [id number] Pa dical NAL [address] [facility] 2021-09-27 2021-09-27 Outpatient R RADIOLOGY [facility] [id number] Univers 09:39:12 09:34:00 ity of [facility] 2021-09-27 2021-09-27 Hospital Radiology [facility] 1.2.840.114 [id number] Univers 09:30:00 09:34:00 Encounter LINDA [id number] ity of [facility] 4.2.7.2.686 [facility] [id number] [facility] 807 Branch 2021-09-01 2021-09-01 Emergency X FABIOLA, [facility] ERT [id number] Univers 21:47:00 23:53:00 ALEX ity [facility] 2021-09-01 2021-09-01 [facility] 1.2.840.114 [id number] Univers 21:47:00 23:53:00 Alex MCKEON 350.1.13.10 i ty of [place] 4.2.7.2.686 [facility] [id number] [facility] 084 Branch 2021-07-27 2021-07-28 Emergency X LILIANA [facility] ERT [id number] Univers 23:50:00 01:46:00 LIZ itkelly [facility] 2021-07-27 2021-07-28 Emergency [facility] 1.2.840.114 [id number] Univers 23:50:00 01:46:00 Liz MCKEON [id number] ity of [place] 4.2.7.2.686 [facility] [id number] [facility] 084 Branch 2021-06-21 2021-06-21 Shelter Case Manager Latasha, Chanda Lab Main [facility] 1.2.8 40.114 [id number] Univers 11:00:00 11:15:00 Visit Skip Baptiste 350.1.13. 10 ity of [place] 4.2.7.2.686 [facility] PROFESSIO [phone] Pa dical [facility] [address] [facility] 2021-06-21 2021-06-21 Outpatient R EMILE [facility] [id number] Univers 11:00:00 11:00:00 SKIP gutierrez [facility] 2021-06-21 2021-06-21 Orders Doctor CONRAD 1.2.840.114 [id number] Univers 00:00:00 00:00:00 Only Unassigned, DANAY 350.1.13.10 ity of [place] [facility] 4.2.7.2.686 Nikita as [id number] [address] 2021-06-15 2021-06-15 Emergency X [facility] ERT [id number] Univers 09:24:00 11:15:00 VAUGHN [facility] 2021-06-15 2021-06-15 Emergency [facility] [id number] Univers 09:24:00 11:15:00 Vaughn [facility] 350.1.13.10 i ty [facility] 4.2.7.2.686 [facility] [id number] [facility] [address] [place] 2021-06-15 2021-06-15 Orders Doctor CONRAD 1.2.840.114 [id number] Univers 00:00:00 00:00:00 Only Unassigned, DANAY 350.1.13.10 ity of [place] [facility] 4.2.7.2.686 Nikita as [id number] [address] 2020-08-16 2020-08-16 Outpatient Gustavo CHOW [facility] [id number] Univers 10:30:00 10:30:00 MADIHA [facility] 2020-07-08 2020-07-08 Outpatient Gustavo VELASQUEZ [facility] [id number] Univers 10:10:00 10:10:00 JESSI [facility] 2020-07-07 2020-07-07 Outpatient Gustavo VELASQUEZ [facility] [id number] Univers 08:50:00 08:50:00 JESSI [facility] 2020-06-15 2020-06-15 Outpatient Gustavo VELASQUEZ [facility] [id number] Univers 10:10:00 10:10:00 JESSI [facility] 2020-05-02 2020-05-02 Outpatient Gustavo DUMONT [facility] [id number] Univers 13:30:00 13:30:00 WILLIAM [facility] 2020-04-15 2020-04-15 Outpatient R TIM, [facility] [id number] Univers 08:15:00 08:15:00 WILLIAM [facility] 2020-01-26 2020-01-26 Outpatient R EMILE [facility] [id number] Univers 08:45:00 08:45:00 SKIP itkelly o matt [facility] 2019-12-18 2019-12-18 Outpatient R EMILE [facility] [id number] Univers 10:00:00 10:00:00 SKIP itkelly o matt [facility] 2019-09-17 2019-09-17 Outpatient R EMILE [facility] [id number] Univers 08:45:00 08:45:00 SKIP itkelly o matt [facility] 2019-04-14 2019-04-14 Emergency X CLAUDIA, [facility] ERT [id number] Univers 10:17:35 13:04:00 SEVERINO [facility] Results Test Description Test Time Test Comments Results Result Comments Source CBC WITH DIFF 2022-08-07 15:39:13 Test Item Value Reference Range Interpretation Comme nts WBC (test code = 6690-2) 5.60 See_Comment [A utomated message] The system which ge nerated this result transmit jorge reference range: 4.30 - 1 1.10 10*3/?L. The reference r varinder was not used to interpr et this result as normal/abnor mal. RBC (test code = 789-8) 3.87 See_Comment L [Au tomated message] The system which ge nerated this result transmit jorge reference range: 3.93 - 5 .25 10*6/?L. The reference r varinder was not used to interpr et this result as normal/abnor mal. HGB (test code = 718-7) 11.7 g/dL 11.6-15.0 HCT (test code = 4544-3) 36.4 % 35.7-45.2 MCV (test code = 787-2) 94.1 fL 80.6-95.5 MCH (test code = 785-6) 30.2 pg 25.9-32.8 MCHC (test code = 786-4) 32.1 g/dL 31.6-35.1 RDW-SD (test code = 62484-8) 51.9 fL 39.0-49.9 H RDW-CV (test code = 788-0) 14.9 % 12.0-15.5 PLT (test code = 777-3) 237 See_Comment [Au tomated message] The system which ge nerated this result transmit jorge reference range: 166 - 35 8 10*3/?L. The reference range was not used to interpret th is result as normal/abnormal . MPV (test code = 13586-0) 10.8 fL 9.5-12.9 NRBC/100 WBC (test code = 0.0 See_Comment [ Automated message] The [id number]) system which ge nerated this result transmit jorge reference range: 0.0 - 10 .0 /100 WBCs. The reference r varinder was not used to interpr et this result as normal/abnor mal. NRBC x10^3 (test code = See_Comment [Au tomated message] The [id number]) system which ge nerated this result transmit jorge reference range: 10*3/?L. The reference range was not u sed to interpret this result as normal/abnormal . GRAN MAT (NEUT) % (test code 69.9 % = 770-8) IMM GRAN % (test code = 0.20 % 4851000931) LYMPH % (test code = 736-9) 20.4 % MONO % (test code = 5905-5) 6.6 % EOS % (test code = 713-8) 2.0 % BASO % (test code = 706-2) 0.9 % GRAN MAT x10^3(ANC) (test 3.92 10*3/uL 1.88-7.09 code = 0592330254) IMM GRAN x10^3 (test code = 0.00-0.06 9711349826) LYMPH x10^3 (test code = 1.14 10*3/uL 1.32-3.29 L 731-0) MONO x10^3 (test code = 0.37 10*3/uL 0.33-0.92 742-7) EOS x10^3 (test code = 0.11 10*3/uL 0.03-0.39 711-2) BASO x10^3 (test code = 0.05 10*3/uL 0.01-0.07 704-7) Lab Interpretation (test Abnormal code = 07596-3) [facility] [id number] 22:08:54 Test Item Value Reference Range Interpretation Comments VIT D 25OH (test code = 32 ng/mL 25-80 45237-4) RAMO (test code = RAMO) Deficiency: <20 ng/mLInsufficiency : 20-24 ng/mLOptimal: 25-80 ng/mL Lab Interpretation (test Normal code = 54638-3) [facility]12, [id number] 21:35:01 Test Item Value Reference Range Interpretation Comments VIT B12 (test code = 578 pg/mL 240-930 4962769542) RAMO (test code = RAMO) Biotin has been reported to cause a positive bias, interpret results relative to patient's use of biotin. Lab Interpretation (test Normal code = 26963-5) [facility] [id number] 20:34:50 Test Item Value Reference Range Interpretation Comments IONIZED CA (test code = 5.10 mg/dL 4.50-5.30 8770522434) PH SERUM (test code = 0218563816) 7.35-7.45 Lab Interpretation (test code = Normal 03007-6) [facility] 16:30:28 Test Item Value Reference Range Interpretation Comments MAGNESIUM (test code = 3931257015) 1.7 mg/dL 1.7-2.4 Lab Interpretation (test code = Normal 79913-2) [facility] ([facility]30)(TOTAL CHOLESTEROL, TRIGLYCERIDES, HDL)2021-06-21 16:30:28 Test Item Value Reference Range Interpretation Comments CHOL (test code = 135 mg/dL 120-200 9669714318) HDL (test code = 70 mg/dL >50 0133384732) HDLC RATIO (test code = See_Comment [Au tomated message] 5865057924) The system [employer] generated this result transmit jorge reference range : <=4.5. The refe rence range was not u sed to interpret th is result as normal/abnormal . TRIG (test code = 55 mg/dL 30-170 6288279237) LDL CHOL (test code = 54 mg/dL See_Comment [Auto mated message] 27518-5) The system [employer] generated this result transmit jorge reference range : <=160. The refe rence range was not u sed to interpret th is result as normal/abnormal . VLDL (test code = 11 mg/dL 5-60 0744449803) Lab Interpretation (test Normal code = 25823-6) [facility] METABOLIC PANEL (NA, K, CL, CO2, GLUCOSE, BUN, CREATININE, CA)2021-06-21 16:30:08 Test Item Value Reference Range Interpretation Comments NA (test code = 138 mmol/L 135-145 1470410502) K (test code = 4.1 mmol/L 3.5-5.0 4954664162) CL (test code = 105 mmol/L 98-108 1551020550) CO2 TOTAL (test code 28 mmol/L 23-31 = 3170623677) AGAP (test code = 2-16 1054825436) BUN (test code = 20 mg/dL 7-23 2745910051) GLUCOSE (test code = 98 mg/dL 70-110 7011717680) CREATININE (test code 0.58 mg/dL 0.50-1.04 = 9752490729) CALCIUM (test code = 9.1 mg/dL 8.6-10.6 5440896089) eGFR (test code = mL/min/1.73m2 7876613151) RAMO (test code = RAMO) Association of Glomerular Filtration Rate (GFR) and Staging of Kidney Disease* + + +- +| GFR (mL/min/1.73 m2) ?| With Kidney Damage ?| ?Without Kidney Damage+ ------+ ----+ ------+| ?>90 ?| ?Stage one ?| ? Normal ?+ -+ + -+| ?60-89 ?| ?Stage two ?| ? Decreased GFR ? + + +- +| ?30-59 ?| ?Stage three ?| ? Stage three ? + + +- +| ?15-29 ?| ?Stage four ? | ? Stage four ?+ -+ + -+| ?<15 (or dialysis) ? ?| ?Stage five ? | ? Stage five ?+ -+ + -+ *Each stage assumes the associated GFR level has been in effect for at least three months. ?Stages 1 to 5, with or without kidney disease, indicate chronic kidney disease. Notes: Determination of stages one and two (with eGFR >59mL/min/1.73 m2) requires estimation of kidney damage for at least three months as defined by structural or functional abnormalities of the kidney, manifested by either:Pathological abnormalities or Markers of kidney damage (including abnormalities in the composition of the blood or urine or abnormalities in imaging tests). [facility] Test Item Value Reference Range Interpretation Comments PHOSPHORUS (test code = 8921036352) 3.4 mg/dL 2.5-5.0 Lab Interpretation (test code = Normal 17943-4) [facility]98[facility] (ALB,T.PRO,BILI T,BU/BC,ALT,AST,ALK PHOS)2021-06-21 16:29:47 Test Item Value Reference Range Interpretation Comments TOTAL BILI (test code = 5574933319) 0.4 mg/dL 0.1-1.1 BILI UNCON (test code = 4507596907) 0.4 mg/dL 0.1-1.1 BILI CONJ (test code = 3245482566) 0.0 mg/dL 0.0-0.3 T PROTEIN (test code = 6955384403) 6.3 g/dL 6.3-8.2 ALBUMIN (test code = 9633862103) 3.9 g/dL 3.5-5.0 ALK PHOS (test code = 6425093104) 85 U/L 34-122 ALTv (test code = 1742-6) 17 U/L 5-35 AST(SGOT) (test code = 5737204465) 20 U/L 13-40 Lab Interpretation (test code = Normal 59453-3) [id number] 16:29:32 Test Item Value Reference Range Interpretation Comments URIC ACID (test code = 3469132791) 3.3 mg/dL 2.9-6.0 Lab Interpretation (test code = Normal 01667-3) [facility] 16:27[facility]08 Test Item Value Reference Range Interpretation Comments [place] (test code = 0.9 mmol/L 0.6-1.2 3074824016) RAMO (test code = RAMO) Toxic Range: ? Greater than 1.2 mmol/L Lab Interpretation (test Normal code = 16653-5) [facility] WITH [id number] 15:05:16 Test Item Value Reference Range Interpretation Comments WBC (test code = See_Comment [Automated 6690-2) message] The sy stem which generated this result transmitted reference range : 4.30 - 11.10 10*3/?L. The reference range was not used to interpret this result as normal/abnormal . RBC (test code = See_Comment L [Automated 789-8) message] The sy stem which generated this result transmitted reference range : 3.93 - 5.25 10*6/?L. The reference range was not used to interpret this result as normal/abnormal . HGB (test code = 11.7 g/dL 11.6-15.0 718-7) HCT (test code = 37.4 % 35.7-45.2 4544-3) MCV (test code = 98.9 fL 80.6-95.5 H 787-2) MCH (test code = 31.0 pg 25.9-32.8 785-6) MCHC (test code = 31.3 g/dL 31.6-35.1 L 786-4) RDW-SD (test code = 49.1 fL 39.0-49.9 94554-9) RDW-CV (test code = 13.5 % 12.0-15.5 788-0) PLT (test code = See_Comment [Automated 777-3) message] The sy stem which generated this result transmitted reference range : 166 - 358 10*3/ ?L. The reference r varinder was not used to interpret this result as normal/abnormal . MPV (test code = 10.3 fL 9.5-12.9 56556-2) NRBC/100 WBC (test See_Comment [Automat ed code = 6841044161) message] The system which generated this result transmitted reference range : 0.0 - 10.0 /100 WBCs. The refer ence range was not u sed to interpret th is result as normal/abnormal . NRBC x10^3 (test code <0.01 See_Comment [Auto mated = 8465751289) message] The s ystem which generated this result transmitted reference range : 10*3/?L. The reference range was not used to interpret this result as normal/abnormal . GRAN MAT (NEUT) % 75.8 % (test code = 770-8) IMM GRAN % (test code 0.20 % = 1319891008) LYMPH % (test code = 15.7 % 736-9) MONO % (test code = 5.9 % 5905-5) EOS % (test code = 1.4 % 713-8) BASO % (test code = 1.0 % 706-2) GRAN MAT x10^3(ANC) 3.73 10*3/uL 1.88-7.09 (test code = 4434864529) IMM GRAN x10^3 (test <0.03 0.00-0.06 code = 7537016162) LYMPH x10^3 (test code 0.77 10*3/uL 1.32-3.29 L = 731-0) MONO x10^3 (test code 0.29 10*3/uL 0.33-0.92 L = 742-7) EOS x10^3 (test code = 0.07 10*3/uL 0.03-0.39 711-2) BASO x10^3 (test code 0.05 10*3/uL 0.01-0.07 = 704-7) Lab Interpretation Abnormal (test code = 62092-6) [facility]"
--- NOTE | 2022-09-02 13:20 | RAD REPORT ---
EXAM DESCRIPTION: CT - CTHCSPWOC - 09/02/2022 12:49 pm CLINICAL HISTORY: TRAUMA COMPARISON: CT HEAD CSPINE MPR WO CONTRAST dated 01/10/2015; CT HEAD CSPINE MPR WO CONTRAST dated ; CT-STROKE BRAIN W/O CONTRAST dated 11/07/2014; MR STROKE PROTOCOL dated 12/09/2013 TECHNIQUE: Axial thin cut noncontrast CT images of the head were obtained. Axial thin cut noncontrast CT images of the cervical spine were obtained. Multiplanar reformatted images were generated and reviewed. All CT scans are performed using dose optimization technique as appropriate and may include automated exposure control or mA/KV adjustment according to patient size. FINDINGS: CT HEAD WITHOUT CONTRAST: No acute hemorrhage, hydrocephalus or extra-axial collection is identified.Mild diffuse parenchymal v olume loss, with stable ventricular caliber.No areas of brain edema or midline shift. Multiple extra -axial calcified lesions along the left greater wing of sphenoid, and bilateral IAC ostia, nonspecifi c may represent calcified meningiomas. The paranasal sinuses and mastoids are clear.The calvarium is intact. Right parietal scalp swelling and hematoma. CT CERVICAL SPINE WITHOUT CONTRAST: No fracture or subluxation. Stable mild multilevel degenerative changes with disc height loss at C4-5 . A pronounced central disc extrusion is also seen at C3-4, not discretely visualized before. No prev ertebral soft tissues swelling is identified. IMPRESSION: No acute traumatic intracranial or cervical spine findings. Pronounced central disc extrusion seen at C3-4, was not discretely seen before. This could result in a degree of spinal cord compression. Please correlate with patient's symptoms. Multiple extra-axial calcified lesions along the left greater wing of sphenoid, and bilateral IAC ost ia, nonspecific may represent calcified meningiomas. These are grossly stable.
--- NOTE | 2022-09-02 13:20 | RAD REPORT ---
EXAM DESCRIPTION: RAD - Knee Right 3 View - 09/02/2022 1:15 pm CLINICAL HISTORY: Swelling;Pain COMPARISON: No comparisons TECHNIQUE: Right knee, 3 views. FINDINGS: No fracture, dislocation or periosteal reaction.No joint effusion seen. Advanced tricompar tmental osteoarthritic changes, with joint space narrowing most pronounced laterally. Mineralization along the medial more than lateral menisci, could relate to deposition arthropathy suc h as CPPD. IMPRESSION: No acute osseous abnormality. Chronic findings as above.
--- NOTE | 2022-09-02 13:49 | ER ---
Nurse's Notes [facility] Name: Coty Paz Age: 72 yrs Sex: Female : 1950 Arrival Date: 09/02/2022 Time: 11:56 Bed 19 Private MD: Diagnosis: Unspecified injury of head, initial encounter;Contusion of scalp, initial encounter;Contusion of right knee Presentation: 09/02 12:13 Chief complaint: Patient's son or daughter states: pt tripped and while walking into [address] this morning at 11am. no LOC, no blood thinners. Coronavirus screen: At this time, the client does not indicate any symptoms associated with coronavirus-19. Ebola Screen: No symptoms or risks identified at this time. Initial Sepsis Screen: Does the patient meet any 2 criteria? No. Patient's initial sepsis screen is negative. Does the patient have a suspected source of infection? No. Patient's initial sepsis screen is negative. Risk Assessment: Do you want to hurt yourself or someone else? Patient reports no desire to harm self or others. Onset of symptoms was September 02, 2022. 12:13 Method Of Arrival: Wheelchair [facility] 12:13 Acuity: ANGEL 3 kc6 Triage Assessment: 12:15 General: Appears in no apparent distress. comfortable, Behavior is calm, cooperative, kc6 appropriate for age. Pain: Denies pain. EENT: No signs and/or symptoms were reported regarding the EENT system. Neuro: Hilario Agitation-Sedation Scale (RASS): 0 - Alert and Calm Level of Consciousness is awake, alert, obeys commands, Oriented to person, place, time, situation, Appropriate for age. Cardiovascular: Capillary refill < 3 seconds. Respiratory: Airway is patent Trachea midline Respiratory effort is even, unlabored, Respiratory pattern is regular, symmetrical. GI: No signs and/or symptoms were reported involving the gastrointestinal system. : No signs and/or symptoms were reported regarding the genitourinary system. Derm: No signs and/or symptoms reported regarding the dermatologic system. Skin is pink, warm \T\ dry. skin tear to the right forearm. Musculoskeletal: No signs and/or symptoms reported regarding the musculoskeletal system. Circulation, motion, and sensation intact. Capillary refill < 3 seconds, Range of motion: intact in all extremities. Historical: - Allergies: 12:15 No Known Allergies; kc6 - PMHx: 12:15 Diabetes - NIDDM; Bipolar disorder; kc6 - PSHx: 12:15 None; kc6 - Immunization history:: Client reports receiving the 2nd dose of the Covid vaccine, Flu vaccine is up to date. - Social history:: Smoking status: Patient denies any tobacco usage or history of. Screenin:17 [facility] ED Fall Risk Assessment (Adult) History of falling in the last 3 months, kc6 including since admission Yes- single mechanical fall (1 pt) Confusion or Disorientation No (0 pts) Intoxicated or Sedated No (0 pts) Impaired Gait No (0 pts) Mobility Assist Device Used No (0 pt) Altered Elimination No (0 pt) Score/Fall Risk Level 0 - 2 = Low Risk Oriented to surroundings, Maintained a safe environment, Educated pt \T\ family on fall prevention, incl call for assistance when getting out of bed, Assessed \T\ reinforced patient's understanding of fall precautions, Hourly rounding (assess needs \T\ fall precautionary measures) done. Abuse screen: Denies threats or abuse. Denies injuries from another. Nutritional screening: No deficits noted. Tuberculosis screening: No symptoms or risk factors identified. Assessment: 12:17 Reassessment: please see triage assessment. 6 13:03 Reassessment: Patient appears in no apparent distress at this time. No changes from 6 previously documented assessment. Patient and/or family updated on plan of care and expected duration. Pain level reassessed. Patient is alert, oriented x 3, equal unlabored respirations, skin warm/dry/pink. 13:20 Reassessment: Pt's sister will return right after giving her keys to her . Pt jl7 sitting in bed watching TV, no signs of distress at this time. Vital Signs: 12:13 BP 134 / 85; Pulse 54; Resp 18 S; Pulse Ox 98% on R/A; Weight 54.43 kg (R); Height 5 kc6 ft. 6 in. (R); 13:03 BP 133 / 71; kc6 12:13 Body Mass Index 19.37 (54.43 kg, 167.64 cm) 6 ED Course: 11:58 Patient arrived in ED. mr 11:59 Shira Mccoy FNP is [facility] j[facility]7 11:59 Issac Hsieh MD is Attending Physician. jh7 12:06 Nolvia Toure, RN is Primary Nurse. kc6 12:15 Triage completed. kc6 12:15 Arm band placed on. kc6 12:17 Patient has correct armband on for positive identification. Bed in low position. Call kc6 light in reach. Side rails up X2. Adult w/ patient. 12:50 CT Head C Spine In Process Unspecified. EDMS 13:17 XRAY Knee RIGHT 3 view In Process Unspecified. EDMS 14:05 No provider procedures requiring assistance completed. Patient did not have IV access kc6 during this emergency room visit. Administered Medications: No medications were administered Medication: 14:05 VIS not applicable for this client. kc6 Outcome: 13:48 Discharge ordered by . jh7 14:05 Discharged to home ambulatory, with family. kc6 14:05 Condition: improved 14:05 Discharge instructions given to family, boat operator, Instructed on discharge instructions, follow up and referral plans. Demonstrated understanding of instructions, follow-up care. 14:05 Patient left the ED. kc6 Signatures: Dispatcher [employer] CATY RainMerari day mr ZapataJesica, RN RN mona7 Shira Mccoy, TRAILER TANK TRUCK DRIVER TRAILER TANK TRUCK DRIVER Nolvia Riddle, RN RN kc6
--- NOTE | 2022-09-02 13:49 | EDPHYS ---
Physician Documentation [facility] Name: Coty Paz Age: 72 yrs Sex: Female : 1950 Arrival Date: 09/02/2022 Time: 11:56 Bed 19 Private MD: ED Physician Issac Hsieh HPI: 09/02 12:15 This 72 yrs old Female presents to ER via Wheelchair with complaints of Fall jh7 Injury, Head Injury-Adult, Arm Injury. 12:15 Details of fall: The patient fell from an upright position, while walking. Onset: The jh7 symptoms/episode began/occurred acutely. Associated injuries: The patient sustained injury to the head, hematoma, right forearm, abrasion. 72-year-old female presents to the ER post fall. She reports that she walked into [employer], and tripped on a ladder in a dimly lit room. Complains of right-sided headache/swelling and right forearm skin avulsion. No LOC, the patient is not on blood thinners.. Historical: - Allergies: 12:15 No Known Allergies; kc6 - PMHx: 12:15 Diabetes - NIDDM; Bipolar disorder; kc6 - PSHx: 12:15 None; kc6 - Immunization history:: Client reports receiving the 2nd dose of the Covid vaccine, Flu vaccine is up to date. - Social history:: Smoking status: Patient denies any tobacco usage or history of. ROS: 12:15 Constitutional: Negative for fever, chills, and weight loss, Eyes: Negative for injury, jh7 pain, redness, and discharge, ENT: Negative for injury, pain, and discharge, Neck: Negative for injury, pain, and swelling, Cardiovascular: Negative for chest pain, palpitations, and edema, Respiratory: Negative for shortness of breath, cough, wheezing, and pleuritic chest pain, Abdomen/GI: Negative for abdominal pain, nausea, vomiting, diarrhea, and constipation. 12:15 MS/extremity: Positive for contusion, of the right knee. 12:15 Skin: Positive for avulsion, hematoma. 12:15 Neuro: Positive for headache, Negative for altered mental status, dizziness, syncope, visual changes, weakness. 12:15 All other systems are negative. Exam: 12:15 Constitutional: This is a well developed, well nourished patient who is awake, alert, jh7 and in no acute distress. Eyes: Pupils equal round and reactive to light, extra-ocular motions intact. Lids and lashes normal. Conjunctiva and sclera are non-icteric and not injected. Cornea within normal limits. Periorbital areas with no swelling, redness, or edema. Neck: Trachea midline, no thyromegaly or masses palpated, and no cervical lymphadenopathy. Supple, full range of motion without nuchal rigidity, or vertebral point tenderness. No Meningismus. Cardiovascular: Regular rate and rhythm with a normal S1 and S2. No gallops, murmurs, or rubs. Normal PMI, no JVD. No pulse deficits. Respiratory: Lungs have equal breath sounds bilaterally, clear to auscultation and percussion. No rales, rhonchi or wheezes noted. No increased work of breathing, no retractions or nasal flaring. Abdomen/GI: Soft, non-tender, with normal bowel sounds. No distension or tympany. No guarding or rebound. No evidence of tenderness throughout. Back: No spinal tenderness. No costovertebral tenderness. Full range of motion. Neuro: Awake and alert, GCS 15, oriented to person, place, time, and situation. Cranial nerves II-XII grossly intact. Motor strength 5/5 in all extremities. Sensory grossly intact. Cerebellar exam normal. 12:15 Head/face: Noted is hematoma, that is moderate, of the Right parietal scalp. 12:15 Musculoskeletal/extremity: ROM: intact in all extremities, full active range of motion, Circulation is intact in all extremities. Sensation intact. Mild diffuse swelling and bruising over the right knee. 12:15 Skin: injury, avulsion(s), A moderate sized of the Right dorsal forearm. Vital Signs: 12:13 BP 134 / 85; Pulse 54; Resp 18 S; Pulse Ox 98% on R/A; Weight 54.43 kg (R); Height 5 kc6 ft. 6 in. (R); 13:03 BP 133 / 71; kc6 12:13 Body Mass Index 19.37 (54.43 kg, 167.64 cm) [facility] MDM: 12:00 Patient medically screened. [facility] 13:50 Differential diagnosis: abrasion, closed head injury, contusion. Data reviewed: [facility] signs, nurses notes, radiologic studies, CT scan, plain films. Historians other than the Patient: Family Member: sister. Counseling: I had a detailed discussion with the patient and/or guardian regarding: the historical points, exam findings, and any diagnostic results supporting the discharge/admit diagnosis, to return to the emergency department if symptoms worsen or persist or if there are any questions or concerns that arise at home. Special discussion: Based on the patient's history, exam and DX evaluation, there is no indication for emergent intervention or inpatient TX. It is understood by the patient/guardian that if the SXs persist or worsen they need to return immediately for re-evaluation. 09/02 12:12 Order name: CT Head C Spine; Complete Time: 13:44 [facility] 09/02 12:12 Order name: XRAY Knee RIGHT 3 view; Complete Time: :44 [facility] 09/02 12:12 Order name: Wound Care: clean wound, wet to dry dressing; Complete Time: 12:17 jh Administered Medications: No medications were administered Disposition Summary: 09/02/22 13:48 Discharge Ordered [facility] Symptoms: have improved jh Condition: Stable jh7 Diagnosis - Unspecified injury of head, initial encounter jh7 - Contusion of scalp, initial encounter jh7 - Contusion of right knee jh7 Followup: [facility] - With: Private Physician - When: 2 - 3 days - Reason: Recheck today's complaints Discharge Instructions: - Discharge Summary Sheet jh7 - Facial or Scalp Contusion jh7 - Head Injury, Adult jh7 - Hematoma jh7 Forms: - Medication Reconciliation Form 7 - Thank You Letter [facility] Signatures: Dispatcher [employer] Shira Joseph FNP MARKETING SALES SUPERVISOR 7 Nolvia Toure, RN RN kc6
[2022-09-02 14:34] VITALS: O2SAT 98
[2022-09-02 14:35] VITALS: BP 133/71
== END 2022-09-02 14:05 | disposition home or self-care (01) ==
LOC: ER 11:56
DX: S00.03XA Contusion of scalp, initial encounter (principal); S80.01XA Contusion of right knee, initial encounter
CPT/HCPCS: 70450; 72125; 99283

== ENCOUNTER 2024-01-22 08:09 | Emergency (ER) | payer OTHER ==
--- OUTSIDE RECORDS SUMMARY | 2024-01-22 08:15 | XMS REPORT | Continuity of Care Document ---
Author Name Unknown Address [address] [facility] [address] [place] [address] [facility] Address [address] [facility] [place] [address] Care Team Providers Care Blow Up Operator Name Role Phone MOMO DANIELS Primary Care Physician Unavaila SAMIR Torres Attending Clinician Unavailable JULI HOUGH Attending Clinician Unavailab JULI Ramos Attending Clinician Unavailab Juli Rosado Attending Clinician [phone] BENIGNO MATHIS Attending Clinician Unavailable BENIGNO MATHIS Attending Clinician Unavailable Benigno Mathis DO Attending Clinician [phone] P[facility] Attending Clinician UnavailSkip Ugarte MD Attending Clinician + [phone] SKIP BAPTISTE Attending Clinician Unavaila Lacy Benoit Attending Clinician Unavailable Lacy Mendez Attending Clinician [phone] P[facility], [facility] Attending Clinician UnavailSkip Ugarte MD Attending Clinician + [phone] Doctor Unassigned, [place] Attending Clinician U Madiha Reeder MD Attending Clinician [phone] MADIHA CHOW Attending Clinician UnavailJIGAR Anderson Attending Clinician UnavailJigar Good Attending Clinician [phone] URBANO SCHNEIDER Attending Clinician UnavailUrbano Moore MD Attending Clinician [phone] Radiology Attending Clinician Unavailable RADIOLOGY Attending Clinician Unavailable ALEX HICKS Attending Clinician Unavailable Alex Sanders Attending Clinician [phone] LIZ FORD Attending Clinician Unavailab Liz Boucher DO Attending Clinician [phone] VAUGHN BARBA Attending Clinician Unavailable Vaughn Barba MD Attending Clinician [phone] JESSI VELASQUEZ Attending Clinician Unavailable WILLIAM DUMONT Attending Clinician UnavailSEVERINO Mccauley Attending Clinician Unavailable JULI HOUGH Admitting Clinician Unavailab BENIGNO Correa Admitting Clinician Unavailable Lacy BUCHANAN Admitting Clinician Unavailable JIGAR GAO Admitting Clinician Unavaila URBANO Varma Admitting Clinician UnavailALEX Gonzalez Admitting Clinician Unavailable LIZ FORD Admitting Clinician Unavailab VAUGHN Breen Admitting Clinician Unavailable SEVERINO TAYLOR Admitting Clinician Unavailable Payers Payer Name Policy Type Policy Number Effective Date Expirati on Date Source MEDICARE PART A \\T\\ B [id number] 1993 00:00:00 [place] [id number] 2009 00:00:00 [facility] DUAL COMP HMO D SNP [id number] 2022 00:00:00 Problems Condition Name Condition Details Condition Category Status Onset Date Resolution Date Last Treatment Date Treating Clinician Comments Source [place] overdose [place] overdose Disease Active 2017-04 00:00: 00 [facility] [place] toxicity [place] toxicity Disease Active 2017-04 00:00: 00 [facility] [place] overdose [place] overdose Disease Active 2017-04 00:00: 00 [facility] Allergies, Adverse Reactions, Alerts Allergy Name Allergy Type Status Severity Reaction(s) Onset Date Inactive Date Treating Clinician Comments Source NO KNOWN ALLERGIE S Drug Class Active [facility] Social History Social Habit Start Date Stop Date Quantity Comments Source History of tobacco use Current smoker [facility] Gender identity [facility] Sexual orientation [facility] Alcohol intake 2023-06-30 00:00:00 2023-06-30 00:00:00 Current non-drinker of alcohol (finding) [facility] History of Social function 2023-06-30 00:00:00 2023-06-30 00:00:00 [facility] Alcoholic beverage intake 2023-06-30 00:00:00 2023-06-30 00:00:00 Current non-drinker of alcohol (finding) [facility] Exposure to SARS-CoV-2 (event) 2022-07-28 00:00:00 2022-08-07 09:53:00 Not sure [facility] Tobacco use and exposure 2018-03-21 00:00:00 2018-03-21 00:00:00 Former smokeless tobacco user [facility] Sex assigned at 1950 00:00:00 1950 00:00:00 [facility] Smoking Status Start Date Stop Date Source Ex-smoker 2018-03-21 00:00:00 2018-03-21 00:00:00 [facility] Medications Ordered Medication Name Filled Medication Name Start Date Stop Date Current Medication? Ordering Clinician Indication Dosage Frequency Signature (SIG) Comments Components Source acetaminoph en (TYLENOL) tablet 1,000 mg 06-29 17:15: 00 06-29 17:50 :00 No 1000mg 1,000 mg, Oral, ONCE, 1 dose, On 06/30/23 at 1215, Routine [facility] chlorhexidi ne (PERIDEX) 0.12 % mouthwash 06-29 00:00: 00 Yes [id number] 15mL Swish and spit out 15 mL 2 (two) times daily. [facility] chlorhexidi ne (PERIDEX) 0.12 % mouthwash 06-29 00:00: 00 06-29 00:00 :00 No [id number] 15mL Swish and spit out 15 mL 2 (two) times daily. [facility] ibuprofen (IBU) tablet 600 mg 09-02 05:30: 00 09-02 04:30 :00 No 600mg 600 mg, Oral, ONCE, 1 dose, On 09/02/21 at 0030, TIERNEY [facility] acetaminoph en (TYLENOL) tablet 1,000 mg 09-02 05:30: 00 09-02 04:29 :00 No 1000mg 1,000 mg, Oral, ONCE, 1 dose, On 09/02/21 at 0030, TIERNEY [facility] OXYBUTYNIN CHLORIDE 5 MG ORAL TAB 04-15 10:50: 45 Yes BID [facility] FLUoxetine 20 mg capsule 04-15 10:50: 45 Yes 20mg Take 20 mg by mouth daily. [facility] pantoprazol e 20 mg EC tablet 04-15 10:50: 45 Yes 20mg Take 20 mg by mouth daily. [facility] levothyroxi ne 75 mcg tablet 04-15 10:50: 45 Yes 75ug Take 75 mcg by mouth every morning. [facility] benztropine 1 mg tablet 04-15 10:50: 45 Yes 1mg Take 1 mg by mouth daily. [facility] QUEtiapine 100 mg tablet 04-15 10:50: 45 Yes 100mg Take 100 mg by mouth daily. [facility] diclofenac 75 mg EC tablet 2019-04 00:00: 00 Yes [facility] METFORMIN 1,000 MG ORAL TAB 2017-04 12:14: 36 Yes 1 tab po BID [facility] ARTIFICIAL TEAR (DEXT 40-HPM) OPHTHALMIC 2017-04 12:14: 36 Yes prn [facility] TYLENOL EXTRA STRENGTH 500 MG ORAL TAB 2017-04 12:14: 36 Yes 2tabs po BID prn [facility] BENADRYL ALLERGY 25 MG ORAL TAB 2017-04 12:14: 36 Yes 50mg po q12hrs prn [facility] lithium carbonate 300 mg tablet 2017-04 00:00: 00 Yes 300mg Take 1 tablet by mouth 2 (two) times daily. [facility] cyanocobala min, vitamin B-12, 1,000 mcg Cap 2017-04 00:00: 00 Yes 1000ug Take 1,000 mcg by mouth daily. [facility] Immunizations Ordered Immunization Name Filled Immunization Name Date Status Comments Source TD Pres-Free 2023-12-12 00:00:00 Completed [facility] Td 2021-06-15 00:00:00 Completed [facility] Td 2021-06-15 00:00:00 Completed [facility] Td 2021-06-15 00:00:00 Completed [facility] Td 2021-06-15 00:00:00 Completed [facility] Td 2021-06-15 00:00:00 Completed [facility] Td 2021-06-15 00:00:00 Completed [facility] Td 2021-06-15 00:00:00 Completed [facility] Td 2021-06-15 00:00:00 Completed [facility] Td 2021-06-15 00:00:00 Completed [facility] Td 2021-06-15 00:00:00 Completed [facility] TD, NOS 2021-06-15 00:00:00 Completed [facility] TD, NOS 2021-06-15 00:00:00 Completed [facility] TD, NOS 2021-06-15 00:00:00 Completed [facility] TD, NOS 2021-06-15 00:00:00 Completed [facility] TD, NOS 2021-06-15 00:00:00 Completed [facility] TD, NOS 2021-06-15 00:00:00 Completed [facility] SARS-COV-2 COVID-19 PFIZER VACCINE 2020-07-07 00:00:00 Completed [facility] SARS-COV-2 COVID-19 PFIZER VACCINE 2020-07-07 00:00:00 Completed [facility] SARS-COV-2 COVID-19 PFIZER VACCINE 2020-07-07 00:00:00 Completed [facility] SARS-COV-2 COVID-19 PFIZER VACCINE 2020-07-07 00:00:00 Completed [facility] SARS-COV-2 COVID-19 PFIZER VACCINE 2020-07-07 00:00:00 Completed [facility] SARS-COV-2 COVID-19 PFIZER VACCINE 2020-07-07 00:00:00 Completed [facility] SARS-COV-2 COVID-19 PFIZER VACCINE 2020-07-07 00:00:00 Completed [facility] SARS-COV-2 COVID-19 PFIZER VACCINE 2020-07-07 00:00:00 Completed [facility] SARS-COV-2 COVID-19 PFIZER VACCINE 2020-07-07 00:00:00 Completed [facility] SARS-COV-2 COVID-19 PFIZER VACCINE 2020-07-07 00:00:00 Completed [facility] SARS-COV-2 COVID-19 PFIZER VACCINE 2020-07-07 00:00:00 Completed [facility] SARS-COV-2 COVID-19 PFIZER VACCINE 2020-07-07 00:00:00 Completed [facility] SARS-COV-2 COVID-19 PFIZER VACCINE 2020-07-07 00:00:00 Completed [facility] SARS-COV-2 COVID-19 PFIZER VACCINE 2020-07-07 00:00:00 Completed [facility] SARS-COV-2 COVID-19 PFIZER VACCINE 2020-07-07 00:00:00 Completed [facility] SARS-COV-2 COVID-19 PFIZER VACCINE 2020-07-07 00:00:00 Completed [facility] SARS-COV-2 COVID-19 PFIZER VACCINE 2020-06-15 00:00:00 Completed [facility] SARS-COV-2 COVID-19 PFIZER VACCINE 2020-06-15 00:00:00 Completed [facility] SARS-COV-2 COVID-19 PFIZER VACCINE 2020-06-15 00:00:00 Completed [facility] SARS-COV-2 COVID-19 PFIZER VACCINE 2020-06-15 00:00:00 Completed [facility] SARS-COV-2 COVID-19 PFIZER VACCINE 2020-06-15 00:00:00 Completed [facility] SARS-COV-2 COVID-19 PFIZER VACCINE 2020-06-15 00:00:00 Completed [facility] SARS-COV-2 COVID-19 PFIZER VACCINE 2020-06-15 00:00:00 Completed [facility] SARS-COV-2 COVID-19 PFIZER VACCINE 2020-06-15 00:00:00 Completed [facility] SARS-COV-2 COVID-19 PFIZER VACCINE 2020-06-15 00:00:00 Completed [facility] SARS-COV-2 COVID-19 PFIZER VACCINE 2020-06-15 00:00:00 Completed [facility] SARS-COV-2 COVID-19 PFIZER VACCINE 2020-06-15 00:00:00 Completed [facility] SARS-COV-2 COVID-19 PFIZER VACCINE 2020-06-15 00:00:00 Completed [facility] SARS-COV-2 COVID-19 PFIZER VACCINE 2020-06-15 00:00:00 Completed [facility] SARS-COV-2 COVID-19 PFIZER VACCINE 2020-06-15 00:00:00 Completed [facility] SARS-COV-2 COVID-19 PFIZER VACCINE 2020-06-15 00:00:00 Completed [facility] SARS-COV-2 COVID-19 PFIZER VACCINE 2020-06-15 00:00:00 Completed [facility] Td 2020-04-07 00:00:00 Completed [facility] Td 2020-04-07 00:00:00 Completed [facility] Td 2020-04-07 00:00:00 Completed [facility] Td 2020-04-07 00:00:00 Completed [facility] Td 2020-04-07 00:00:00 Completed [facility] Td 2020-04-07 00:00:00 Completed [facility] Td 2020-04-07 00:00:00 Completed [facility] Td 2020-04-07 00:00:00 Completed [facility] Td 2020-04-07 00:00:00 Completed [facility] Td 2020-04-07 00:00:00 Completed [facility] TD, NOS 2020-04-07 00:00:00 Completed [facility] TD, NOS 2020-04-07 00:00:00 Completed [facility] TD, NOS 2020-04-07 00:00:00 Completed [facility] TD, NOS 2020-04-07 00:00:00 Completed [facility] TD, NOS 2020-04-07 00:00:00 Completed [facility] TD, NOS 2020-04-07 00:00:00 Completed [facility] TD, NOS Unknown Completed [facility] SARS-COV-2 COVID-19 PFIZER VACCINE Unknown Completed [facility] TD, NOS Unknown Completed [facility] SARS-COV-2 COVID-19 PFIZER VACCINE Unknown Completed [facility] TD, NOS Unknown Completed [facility] SARS-COV-2 COVID-19 PFIZER VACCINE Unknown Completed [facility] TD, NOS Unknown Completed [facility] SARS-COV-2 COVID-19 PFIZER VACCINE Unknown Completed [facility] TD, NOS Unknown Completed [facility] SARS-COV-2 COVID-19 PFIZER VACCINE Unknown Completed [facility] TD, NOS Unknown Completed [facility] SARS-COV-2 COVID-19 PFIZER VACCINE Unknown Completed [facility] TD, NOS Unknown Completed [facility] SARS-COV-2 COVID-19 PFIZER VACCINE Unknown Completed [facility] TD Pres-Free Unknown Completed [facility] Vital Signs Vital Name Observation Time Observation Value Comments S ource Systolic blood pressure 2023-12-29 04:30:00 171 mm[Hg] [facility] Diastolic blood pressure 2023-12-29 04:30:00 74 mm[Hg] [facility] Heart rate 2023-12-29 04:30:00 78 /min [facility] Respiratory rate 2023-12-29 04:30:00 18 /min [facility] Oxygen saturation in Arterial blood by Pulse oximetry 2023-12-29 04:30:00 100 /min [facility] Body temperature 2023-12-29 01:42:00 36.61 Glenny [facility] Body height 2023-12-29 01:42:00 154.9 cm [facility] Body weight 2023-12-29 01:42:00 49.896 kg [facility] BMI 2023-12-29 01:42:00 20.78 kg/m2 [facility] Systolic blood pressure 2023-12-13 00:13:00 125 mm[Hg] [facility] Diastolic blood pressure 2023-12-13 00:13:00 73 mm[Hg] [facility] Heart rate 2023-12-13 00:13:00 84 /min [facility] Body temperature 2023-12-13 00:13:00 37 Glenny [facility] Respiratory rate 2023-12-13 00:13:00 14 /min [facility] Body height 2023-12-13 00:13:00 154.9 cm [facility] Body weight 2023-12-13 00:13:00 50.032 kg [facility] BMI 2023-12-13 00:13:00 20.84 kg/m2 [facility] Oxygen saturation in Arterial blood by Pulse oximetry 2023-12-13 00:13:00 100 /min [facility] Systolic blood pressure 2023-06-30 19:13:00 147 mm[Hg] [facility] Diastolic blood pressure 2023-06-30 19:13:00 87 mm[Hg] [facility] Heart rate 2023-06-30 19:13:00 63 /min Unive [facility] Body temperature 2023-06-30 19:13:00 36.67 Glenny [facility] Respiratory rate 2023-06-30 19:13:00 19 /min [facility] Oxygen saturation in Arterial blood by Pulse oximetry 2023-06-30 19:13:00 100 /min [facility] Body weight 2023-06-30 16:29:00 49.669 kg [facility] BMI 2023-06-30 16:29:00 17.15 kg/m2 [facility] Systolic blood pressure 2023-01-04 19:00:00 148 mm[Hg] [facility] Diastolic blood pressure 2023-01-04 19:00:00 79 mm[Hg] [facility] Heart rate 2023-01-04 19:00:00 68 /min [facility] Respiratory rate 2023-01-04 19:00:00 16 /min [facility] Oxygen saturation in Arterial blood by Pulse oximetry 2023-01-04 19:00:00 100 /min [facility] Body temperature 2023-01-04 16:29:00 36.72 Glenny [facility] Body height 2023-01-04 16:29:00 170.2 cm [facility] Body weight 2023-01-04 16:29:00 53.071 kg [facility] BMI 2023-01-04 16:29:00 18.32 kg/m2 [facility] Systolic blood pressure 2022-07-09 13:00:00 134 mm[Hg] [facility] Diastolic blood pressure 2022-07-09 13:00:00 73 mm[Hg] [facility] Heart rate 2022-07-09 13:00:00 81 /min [facility] Body temperature 2022-07-09 13:00:00 36.22 Glenny [facility] Respiratory rate 2022-07-09 13:00:00 18 /min [facility] Body height 2022-07-09 13:00:00 167.6 cm [facility] Body weight 2022-07-09 13:00:00 49.896 kg [facility] BMI 2022-07-09 13:00:00 17.75 kg/m2 [facility] Oxygen saturation in Arterial blood by Pulse oximetry 2022-07-09 13:00:00 99 /min [facility] Systolic blood pressure 2021-10-18 02:42:00 129 mm[Hg] [facility] Diastolic blood pressure 2021-10-18 02:42:00 77 mm[Hg] [facility] Heart rate 2021-10-18 02:42:00 66 /min [facility] Body temperature 2021-10-18 02:42:00 37.06 Glenny [facility] Respiratory rate 2021-10-18 02:42:00 20 /min [facility] Body height 2021-10-18 02:42:00 167.6 cm [facility] 2021-10-18 02:42:00 49.76 kg [facility] BMI 2021-10-18 02:42:00 17.71 kg/m2 [facility] Oxygen saturation in Arterial blood by Pulse oximetry 2021-10-18 02:42:00 97 /min [facility] Systolic blood pressure 2021-09-02 02:40:00 143 mm[Hg] [facility] Diastolic blood pressure 2021-09-02 02:40:00 83 mm[Hg] [facility] Heart rate 2021-09-02 02:40:00 83 /min [facility] Body temperature 2021-09-02 02:40:00 37.78 Glenny [facility] Respiratory rate 2021-09-02 02:40:00 18 /min [facility] Body weight 2021-09-02 02:40:00 50.485 kg [facility] BMI 2021-09-02 02:40:00 17.96 kg/m2 [facility] Oxygen saturation in Arterial blood by Pulse oximetry 2021-09-02 02:40:00 96 /min [facility] Systolic blood pressure 2021-07-28 06:00:00 126 mm[Hg] [facility] Diastolic blood pressure 2021-07-28 06:00:00 65 mm[Hg] [facility] Respiratory rate 2021-07-28 06:00:00 16 /min [facility] Oxygen saturation in Arterial blood by Pulse oximetry 2021-07-28 06:00:00 99 /min [facility] Heart rate 2021-07-28 05:00:00 67 /min [facility] Body temperature 2021-07-28 04:46:00 37.06 Glenny [facility] Body height 2021-07-28 04:46:00 167.6 cm [facility] Body weight 2021-07-28 04:46:00 44.815 kg [facility] BMI 2021-07-28 04:46:00 15.95 kg/m2 [facility] Procedures Procedure Date / Time Performed Performing Clinicia n Source TROPONIN I 2023-12-29 02:24:00 [facility]. METABOLIC PANEL (04188) 2023-12-29 02:24:00 Juli Hough [facility] CBC WITH DIFF 2023-12-29 02:24:00 [facility] N-TERMINAL PRO-BNP 2023-12-29 02:24:00 Juli Hough [facility] PHYSICIAN ORDERS 2023-04-17 06:01:00 Doctor Sandie signed, [place] [facility] CT CERVICAL SPINE WO CONTRAST 2023-01-04 17:53:02 Lacy Buchanan [facility] CT HEAD WO CONTRAST 2023-01-04 17:53:02 Lacy Buchanan [facility] XR HAND 3+ VW LEFT 2023-01-04 17:17:52 Lacy Buchanan [facility] XR WRIST 3+ VW LEFT 2023-01-04 17:17:52 Lacy Buchanan [facility] CONSENT/REFUSAL FOR DIAGNOSIS AND TREATMENT 2023-01-04 16:20:43 Doctor Unassigned, [place] [facility] CONSENT/REFUSAL FOR DIAGNOSIS AND TREATMENT 2022-12-12 15:09:45 Doctor Unassigned, [place] [facility] CBC WITH DIFF 2022-08-07 15:24:00 Skip Baptiste [facility] PHYSICIAN ORDERS 2022-08-07 05:01:00 Doctor Mellys signed, [place] [facility] XR CHEST 1 VW 2022-07-09 14:05:47 Jigar Gao [facility] PHYSICIAN ORDERS 2022-02-28 06:01:00 Doctor Unas signed, [place] [facility] XR FOOT 3+ VW LEFT 2021-10-18 03:15:35 Urbano Schneider [facility] XR KNEE 3 VW BILATERAL 2021-10-18 03:15:35 Ced Schneider [facility] CONSENT/REFUSAL FOR DIAGNOSIS AND TREATMENT 2021-10-18 02:36:32 Doctor Unassigned, [place] [facility] XR HAND 3+ VW LEFT 2021-09-27 15:18:[address] [facility] XR KNEE 3 VW RIGHT 2021-09-27 15:17:29 Lachelle Castrejon U [facility] NOTICE OF PRIVACY PRACTICES 2021-09-27 14:40:01 Doctor Unassigned, [place] [facility] CONSENT/REFUSAL FOR DIAGNOSIS AND TREATMENT 2021-09-27 14:39:36 Doctor Unassigned, [place] [facility] ASSIGNMENT OF BENEFITS 2021-09-27 14:38:29 Docto r Unassigned, [place] [facility] XR ELBOW >3 VW LEFT 2021-09-02 03:16:53 Galilea Hicks ne [facility] XR FOREARM 2 VW LEFT 2021-09-02 03:16:53 Mayra Hicks nne [facility] XR HUMERUS 2 VW LEFT 2021-09-02 03:16:53 Mayra Hicks nnariel [facility] CONSENT/REFUSAL FOR DIAGNOSIS AND TREATMENT 2021-09-02 02:32:15 Doctor Unassigned, [place] [facility] CT TRAUMA HEAD WO CONTRAST 2021-07-28 05:37:00 Liz Ford [facility] CT TRAUMA CERVICAL SPINE WO CONTRAST 2021-07-28 05:37:00 Liz Ford [facility] PHOSPHORUS 2021-06-21 15:00:00 Skip Baptiste Andriy U [facility] URIC ACID 2021-06-21 15:00:00 Skip Baptiste Andriy U [facility] MAGNESIUM 2021-06-21 15:00:00 Skip Baptiste Andriy U [facility] VITAMIN B12, LEVEL 2021-06-21 15:00:00 Skip Baptiste Andriy [facility] IONIZED CALCIUM 2021-06-21 15:00:00 Skip Baptiste q [facility] HEPATIC FUNCTION PANEL (10608) (ALB,T.PRO,BILI T,BU/BC,ALT,AST,ALK PHOS) 2021-06-21 15:00:00 Skip Baptiste [facility] BASIC METABOLIC PANEL (NA, K, CL, CO2, GLUCOSE, BUN, CREATININE, CA) 2021-06-21 15:00:00 Skip Baptiste [facility] LIPID PANEL ([id number])(TOTAL CHOLESTEROL, TRIGLYCERIDES, HDL) 2021-06-21 15:00:00 Skip Baptiste [facility] LITHIUM 2021-06-21 15:00:00 [facility] WITH DIFF 2021-06-21 15:00:00 Skip Baptiste Andriy [facility] VITAMIN D, 25-OH 2021-06-21 15:00:00 Skip Baptiste [facility] PHYSICIAN ORDERS 2021-06-21 05:01:00 Doctor Unas signed, [place] [facility] Encounters Start Date/Time End Date/Time Encounter Type Admission Type Attending [facility] Care Department Encounter ID Source 2022-08-10 11:19:00 [facility] [id number] [facility] 2021-09-27 09:56:03 Outpatient STLC STLC [id number] [facility] 2021-09-26 09:17:01 Outpatient STLMLC STLC [id number] [facility] 2021-09-25 13:48:03 Outpatient STLC STLC [id number] [facility] 2021-01-29 15:07:50 Emergency [facility] [id number] [facility] 2021-01-28 15:53:49 Emergency [facility] [id number] [facility] 2021-01-28 12:01:43 Emergency [facility] [id number] [facility] 2024-01-14 14:00:00 2024-01-14 14:25:49 Outpatient Gustavo SAMIR ZAVALA [facility] [id number] [facility] 2023-12-28 20:46:00 2023-12-28 23:35:00 Emergency X JULI HOUGH TASHA [facility] ERT [id number] [facility] 2023-12-28 20:46:00 2023-12-28 23:35:00 Emergency Juli Hough [facility] 1..840.114 350.1.13.10 4.2.7.2.686 [id number] [facility] 2023-12-12 19:18:00 2023-12-12 21:02:00 Emergency BENIGNO ROBLES TIMOTHY [facility] ERT [id number] [facility] 2023-12-12 19:18:00 2023-12-12 21:02:00 Emergency Benigno Mathis [facility] 1..840.114 350.1.13.10 4.2.7.2.686 [id number] [facility] 2023-11-07 08:15:00 2023-11-07 08:30:00 Surgical Device Sales Representative Visit Pob, Adc Lab Main Skip Baptisteiq Pob, Adc Lab Main [facility] 1..840.114 350.1.13.10 4.2.7.2.686 [id number] [facility] 2023-11-07 08:15:00 2023-11-07 08:15:00 Outpatient R SKIP BAPTISTE [facility] [id number] [facility] 2023-06-30 11:32:00 2023-06-30 14:23:00 Emergency X Lacy BUCHANAN [facility] ERT [id number] [facility] 2023-06-30 11:32:00 2023-06-30 14:23:00 Emergency Lacy [facility] 1.2840.114 350.1.13.10 4.2.7.2.686 [id number] [id number] [facility] 2023-04-17 08:15:00 2023-04-17 08:30:00 Surgical Device Sales Representative Visit Pob, Adc Lab [facility] 1.2.114 350.1.13.10 4.2.7.2.686 [id number] [facility] 2023-04-17 08:15:00 2023-04-17 08:15:00 Outpatient R SKIP [facility]E [facility] [id number] [facility] 2023-04-17 00:00:00 2023-04-17 00:00:00 Orders Only Doctor Unassigned, [place] [facility] 1.20.114 350.1.13.10 4.2.7.2.686 [id number] [id number] [facility] 2023-01-04 11:31:00 2023-01-04 14:05:00 Emergency X Lacy BUCHANAN [facility] ERT [id number] [facility] 2023-01-04 11:31:00 2023-01-04 14:05:00 Emergency Lacy [facility] 1.20.114 350.1.13.10 4.2.7.2.686 [id number] [facility] 2023-01-04 00:00:00 2023-01-04 00:00:00 Orders Only Doctor Unassigned, [place] [facility] 1.20.114 350.1.13.10 4.2.7.2.686 [id number] [facility] 2022-12-12 10:15:00 2022-12-12 10:30:00 Surgical Device Sales Representative Visit Pob, Adc Lab Main Skip Baptiste [facility] 1.2.840.114 350.1.13.10 4.2.7.2.686 [id number] [facility] 2022-12-12 10:15:00 2022-12-12 10:15:00 Outpatient Gustavo [facility] [id number] [facility] 2022-12-12 00:00:00 2022-12-12 00:00:00 Orders Only Doctor Unassigned, [place] [facility] 1.2840.114 350.1.13.10 4.2.7.2.686 [id number] [id number] [facility] 2022-08-07 10:00:00 2022-08-07 10:15:00 Surgical Device Sales Representative Visit Po, Adc Lab Main Madiha Chow [facility] 1.2.840.114 350.1.13.10 4.2.7.2.686 [id number] [facility] 2022-08-07 10:00:00 2022-08-07 10:00:00 Outpatient R CLAUDINE BECKLEY [facility] [id number] [facility] 2022-08-07 00:00:00 2022-08-07 00:00:00 Orders Only Doctor Unassigned, [place] [facility] 1.2840.114 350.1.13.10 4.2.7.2.686 [id number] [facility] 2022-07-09 07:58:00 2022-07-09 09:34:00 Emergency X JIGAR GAO [facility] ERT [id number] [facility] 2022-07-09 07:58:00 2022-07-09 09:34:00 Emergency Jigar Gao [facility] 1.2840.114 350.1.13.10 4.2.7.2.686 [id number] [facility] 2022-02-28 08:45:00 2022-02-28 09:00:00 Surgical Device Sales Representative Visit Pob, Adc Lab Main Madiha Chow [facility] 1.20.114 350.1.13.10 4.2.7.2.686 [id number] [facility] 2022-02-28 08:45:00 2022-02-28 08:45:00 Outpatient R MADIHA CHOW [facility] [id number] [facility] 2022-02-28 00:00:00 2022-02-28 00:00:00 Orders Only Doctor Unassigned, [place] [facility] 1.2840.114 350.1.13.10 4.2.7.2.686 [id number] [id number] [facility] 2021-10-17 21:49:00 2021-10-17 23:05:00 Emergency X URBANO SCHNEIDER [facility] ERT [id number] [facility] 2021-10-17 21:49:00 2021-10-17 23:05:00 Emergency Urbano Schneider [facility] 1.2840.114 350.1.13.10 4.2.7.2.686 [id number] [id number] [facility] 2021-09-27 09:35:31 2021-09-27 23:59:00 Hospital Encounter Radiology [facility] 1.2840.114 350.1.13.10 4.2.7.2.686 [id number] [facility] 2021-09-27 10:30:00 2021-09-27 10:45:00 Surgical Device Sales Representative Visit Pob, Adc Lab Main Madiha Chow [facility] 1.20.114 350.1.13.10 4.2.7.2.686 [id number] [facility] 2021-09-27 09:39:12 2021-09-27 09:34:00 Outpatient R RADIOLOGY [facility] [id number] [facility] 2021-09-27 09:30:00 2021-09-27 09:34:00 Hospital Encounter Radiology [facility] 1..114 350.1.13.10 4.2.7.2.686 [id number] [facility] 2021-09-01 21:47:00 2021-09-01 23:53:00 Emergency X ALEX HICKS [facility] ERT [id number] [facility] 2021-09-01 21:47:00 2021-09-01 23:53:00 Emergency Yecenia Hicksanne [facility] 1..114 350.1.13.10 4.2.7.2.686 [id number] [facility] 2021-07-27 23:50:00 2021-07-28 01:46:00 Emergency X LIZ FORD [facility] ERT [id number] [facility] 2021-07-27 23:50:00 2021-07-28 01:46:00 Emergency Liz Ford [facility] 1.0.114 350.1.13.10 4.2.7.2.686 [id number] [facility] 2021-06-21 11:00:00 2021-06-21 11:15:00 Surgical Device Sales Representative Visit Pob, Adc Lab Main Skip [facility] 1.2.114 350.1.13.10 4.2.7.2.686 [id number] [facility] 2021-06-21 11:00:00 2021-06-21 11:00:00 Outpatient Gustavo SKIP [facility] [id number] [facility] 2021-06-21 00:00:00 2021-06-21 00:00:00 Orders Only Doctor Unassigned, [place] [facility] 1.2.840.114 350.1.13.10 4.2.7.2.686 [id number] [facility] 2021-06-15 09:24:00 2021-06-15 11:15:00 Emergency X NARESH VAUGHN [facility] ERT [id number] [facility] 2021-06-15 09:24:00 2021-06-15 11:15:00 Emergency Vaughn Barba [facility] 1.2.840.114 350.1.13.10 4.2.7.2.686 [id number] [facility] 2021-06-15 00:00:00 2021-06-15 00:00:00 Orders Only Doctor Unassigned, [place] [facility] 1.2.840.114 350.1.13.10 4.2.7.2.686 [id number] [facility] 2020-08-16 10:30:00 2020-08-16 10:30:00 Outpatient MADIHA COX [facility] [id number] [facility] 2020-07-08 10:10:00 2020-07-08 10:10:00 Outpatient JESSI SCHAFER [facility] [id number] [facility] 2020-07-07 08:50:00 2020-07-07 08:50:00 Outpatient JESSI SCHAFER [facility] [id number] [facility] 2020-06-15 10:10:00 2020-06-15 10:10:00 Outpatient JESSI SCHAFER [facility] [id number] [facility] 2020-05-02 13:30:00 2020-05-02 13:30:00 Outpatient WILLIAM CARRASCO [facility] [id number] [facility] 2020-04-15 08:15:00 2020-04-15 08:15:00 Outpatient WILLIAM CARRASCO [facility] [id number] [facility] 2020-01-26 08:45:00 2020-01-26 08:45:00 Outpatient Gustavo [facility] [id number] [facility] 2019-12-18 10:00:00 2019-12-18 10:00:00 Outpatient Gustavo [facility] [id number] [facility] 2019-09-17 08:45:00 2019-09-17 08:45:00 Outpatient Gustavo [facility] [id number] [facility] 2019-04-14 10:17:35 2019-04-14 13:04:00 Emergency X SEVERINO TAYLOR [facility] ERT [id number] [facility] Results Test Description Test Time Test Comments Results Result Co mments Source [id number] 03:42:42* Test Item Value Reference Range Interpretation Comme nts NT-proBNP (test code = 35587-3) 61 pg/mL <=125 Lab Interpretation (test cod e = 85719-0) Normal [facility]OL[facility] (46482)2023-12-29 03:34:40* Test Item Value Reference Range Interpretation Comme nts NA (test code = 6561781976) 139 mmol/L 135-145 K (test code = 3003414762) 4.2 mmol/L 3.5-5.0 CL (test code = 2897429493) 104 mmol/L 98-108 CO2 TOTAL (test code = 8564804006) 30 mmol/L 23-31 AGAP (test code = 0193696301) 5 2-16 BUN (test code = 8197201322) 18 mg/dL 7-23 GLUCOSE (test code = 7445883780) 84 mg/dL 70-110 CREATININE (test code = 2160-0) 0.87 mg/dL 0.50-1.04 TOTAL BILI (test code = 5925206822) 0.7 mg/dL 0.1-1.1 CALCIUM (test code = 9877600211) 10.0 mg/dL 8.6-10.6 T PROTEIN (test code = 8511271745) 8.4 g/dL 6.3-8.2 H ALBUMIN (test code = 5098802920) 4.6 g/dL 3.5-5.0 ALK PHOS (test code = 6182241579) 128 U/L 34-122 H ALTv (test code = 1742-6) 22 U/L 5-35 AST(SGOT) (test code = 2031236342) 29 U/L 13-40 eGFR (test code = 96929-0) 71.3 mL/min/1.73m2 CKD-EPI eGFR (2020). Assuming creatinine has been stable day-to-day for at least three months, the eGFR indicates Category G2 (60 - 89 mL/min/1.73 m2) Lab Interpretation (test code = 15004-9) Abnormal [facility] WITH [id number] 03:19:41* Test Item Value Reference Range Interpretation Comme nts WBC (test code = 6690-2) 5.95 4.30-11.10 RBC (test code = 789-8) 4.24 3.93-5.25 HGB (test code = 718-7) 12.8 g/dL 11.6-15.0 HCT (test code = 4544-3) 41.2 % 35.7-45.2 MCV (test code = 787-2) 97.2 fL 80.6-95.5 H MCH (test code = 785-6) 30.2 pg 25.9-32.8 MCHC (test code = 786-4) 31.1 g/dL 31.6-35.1 L RDW-SD (test code = 84143-7) 50.4 fL 39.0-49.9 H RDW-CV (test code = 788-0) 14.2 % 12.0-15.5 PLT (test code = 777-3) 357 166-358 MPV (test code = 19687-9) 10.5 fL 9.5-12.9 NRBC/100 WBC (test code = 0077722849) 0.0 0.0-10.0 NRBC x10^3 (test code = 5880900900) See_Comment [Automated messa ge] The system which generated this result transmitted reference range: 10*3/?L. The reference range was not used to interpret this result as normal/abnormal. GRAN MAT (NEUT) % (test code = 770-8) 62.9 % IMM GRAN % (test code = 0832887854) 0.30 % LYMPH % (test code = 736-9) 26.2 % MONO % (test code = 5905-5) 7.6 % EOS % (test code = 713-8) 1.8 % BASO % (test code = 706-2) 1.2 % GRAN MAT x10^3(ANC) (test code = 4181709254) 3.74 10*3/uL 1.88-7.09 IMM GRAN x10^3 (test code = 7406700682) 0.00-0.06 LYMPH x10^3 (test code = 731-0) 1.56 10*3/uL 1.32-3.29 MONO x10^3 (test code = 742-7) 0.45 10*3/uL 0.33-0.92 EOS x10^3 (test code = 711-2) 0.11 10*3/uL 0.03-0.39 BASO x10^3 (test code = 704-7) 0.07 10*3/uL 0.01-0.07 Lab Interpretation (test code = 60487-1) Abnormal [facility] WITH [id number] 15:39:13* Test Item Value Reference Range Interpretation Comme nts WBC (test code = 6690-2) 5.60 See_Comment [Automated messa ge] The system which generated this result transmitted reference range: 4.30 - 11.10 10*3/?L. The reference range was not used to interpret this result as normal/abnormal. RBC (test code = 789-8) 3.87 See_Comment L [Automated messa ge] The system which generated this result transmitted reference range: 3.93 - 5.25 10*6/?L. The reference range was not used to interpret this result as normal/abnormal. HGB (test code = 718-7) 11.7 g/dL 11.6-15.0 HCT (test code = 4544-3) 36.4 % 35.7-45.2 MCV (test code = 787-2) 94.1 fL 80.6-95.5 MCH (test code = 785-6) 30.2 pg 25.9-32.8 MCHC (test code = 786-4) 32.1 g/dL 31.6-35.1 RDW-SD (test code = 51628-0) 51.9 fL 39.0-49.9 H RDW-CV (test code = 788-0) 14.9 % 12.0-15.5 PLT (test code = 777-3) 237 See_Comment [Automated [employer]] The system which generated this result transmitted reference range: 166 - 358 10*3/?L. The reference range was not used to interpret this result as normal/abnormal. MPV (test code = 45832-9) 10.8 fL 9.5-12.9 NRBC/100 WBC (test code = 9925737468) 0.0 See_Comment [Automated [employer] ssage] The system which generated this result transmitted reference range: 0.0 - 10.0 /100 WBCs. The reference range was not used to interpret this result as normal/abnormal. NRBC x10^3 (test code = 9361433120) See_Comment [Automated [employer]] The system which generated this result transmitted reference range: 10*3/?L. The reference range was not used to interpret this result as normal/abnormal. GRAN MAT (NEUT) % (test code = 770-8) 69.9 % IMM GRAN % (test code = 1458468165) 0.20 % LYMPH % (test code = 736-9) 20.4 % MONO % (test code = 5905-5) 6.6 % EOS % (test code = 713-8) 2.0 % BASO % (test code = 706-2) 0.9 % GRAN MAT x10^3(ANC) (test code = 1569034981) 3.92 10*3/uL 1.88-7.09 IMM GRAN x10^3 (test code = 0787822193) 0.00-0.06 LYMPH x10^3 (test code = 731-0) 1.14 10*3/uL 1.32-3.29 L MONO x10^3 (test code = 742-7) 0.37 10*3/uL 0.33-0.92 EOS x10^3 (test code = 711-2) 0.11 10*3/uL 0.03-0.39 BASO x10^3 (test code = 704-7) 0.05 10*3/uL 0.01-0.07 Lab Interpretation (test code = 80447-9) Abnormal [facility], [id number] 22:08:54* Test Item Value Reference Range Interpretation Comme nts VIT D 25OH (test code = 08908-5) 32 ng/mL 25-80 RAMO (test code = RAMO) Deficiency: <20 ng/mLInsufficiency : 20-24 ng/mLOptimal: 25-80 ng/mL Lab Interpretation (test code = 82876-8) Normal [facility] B12, [id number] 21:35:01* Test Item Value Reference Range Interpretation Comme nts VIT B12 (test code = 2440812302) 578 pg/mL 240-930 RAMO (test code = RAMO) Biotin has been reported to cause a positive bias, interpret results relative to patient's use of biotin. Lab Interpretation (test code = 88160-9) Normal [facility]ED [id number] 20:34:50* Test Item Value Reference Range Interpretation Comme nts IONIZED CA (test code = 2787130884) 5.10 mg/dL 4.50-5.30 PH SERUM (test code = 4708396888) 7.35-7.45 Lab Interpretation (test cod e = 83221-0) Normal [facility]2022-03-23 16:30:28* Test Item Value Reference Range Interpretation Comme nts MAGNESIUM (test code = 3620608047) 1.7 mg/dL 1.7-2.4 Lab Interpretation (test cod e = 70475-4) Normal [facility] HospitalLIPID PANEL (06535)(TOTAL CHOLESTEROL, TRIGLYCERIDES, HDL)2021-06-21 16:30:28* Test Item Value Reference Range Interpretation Comme nts CHOL (test code = 1121419033) 135 mg/dL 120-200 HDL (test code = 9648308241) 70 mg/dL >50 HDLC RATIO (test code = 4117718754) See_Comment [Automated [employer]] The system which generated this result transmitted reference range: <=4.5. The reference range was not used to interpret this result as normal/abnormal. TRIG (test code = 6868762505) 55 mg/dL 30-170 LDL CHOL (test code = 74171-2) 54 mg/dL See_Comment [Automated [employer]] The system which generated this result transmitted reference range: <=160. The reference range was not used to interpret this result as normal/abnormal. VLDL (test code = 3369284140) 11 mg/dL 5-60 Lab Interpretation (test code = 46733-3) Normal [facility] METABOLIC PANEL (NA, K, CL, CO2, GLUCOSE, BUN, CREATININE, CA)2021-06-21 16:30:08* Test Item Value Reference Range Interpretation Comme nts NA (test code = 2833592649) 138 mmol/L 135-145 K (test code = 9488399392) 4.1 mmol/L 3.5-5.0 CL (test code = 5572708076) 105 mmol/L 98-108 CO2 TOTAL (test code = 2214166942) 28 mmol/L 23-31 AGAP (test code = 0726730672) 2-16 BUN (test code = 0400830575) 20 mg/dL 7-23 GLUCOSE (test code = 4837499111) 98 mg/dL 70-110 CREATININE (test code = 5323082283) 0.58 mg/dL 0.50-1.04 CALCIUM (test code = 6741665588) 9.1 mg/dL 8.6-10.6 eGFR (test code = 0324508685) mL/min/1.73m2 RAMO (test code = RAMO) Association of [...] or urine or abnormalities in imaging tests). [facility]OS[facility]2022-03-23 16:30:08* Test Item Value Reference Range Interpretation Comme nts PHOSPHORUS (test code = 9665872589) 3.4 mg/dL 2.5-5.0 Lab Interpretation (test cod e = 16344-8) Normal [facility] Hospital[facility]AT[facility] FUNCTION PANEL (12209) (ALB,T.PRO,BILI T,BU/BC,ALT,AST,ALK PHOS)2021-06-21 16:29:47* Test Item Value Reference Range Interpretation Comme nts TOTAL BILI (test code = 8596074766) 0.4 mg/dL 0.1-1.1 BILI UNCON (test code = 9073248306) 0.4 mg/dL 0.1-1.1 BILI CONJ (test code = 6287641654) 0.0 mg/dL 0.0-0.3 T PROTEIN (test code = 1653182481) 6.3 g/dL 6.3-8.2 ALBUMIN (test code = 8731219390) 3.9 g/dL 3.5-5.0 ALK PHOS (test code = 0012334772) 85 U/L 34-122 ALTv (test code = 1742-6) 17 U/L 5-35 AST(SGOT) (test code = 8362143548) 20 U/L 13-40 Lab Interpretation (test cod e = 29380-9) Normal [facility] HospitalURIC [id number] 16:29:32* Test Item Value Reference Range Interpretation Comme nts URIC ACID (test code = 2753951919) 3.3 mg/dL 2.9-6.0 Lab Interpretation (test cod e = 02875-8) Normal [facility]2022-03-23 16:27:08* Test Item Value Reference Range Interpretation Comme nts [place] (test code = 7371196409) 0.9 mmol/L 0.6-1.2 RAMO (test code = RAMO) Toxic Range: ? Greater than 1.2 mmol/L Lab Interpretation (test code = 10034-0) Normal [facility] WITH [id number] 15:05:16* Test Item Value Reference Range Interpretation Comme nts WBC (test code = 6690-2) See_Comment [Automated [employer]] The system which generated this result transmitted reference range: 4.30 - 11.10 10*3/?L. The reference range was not used to interpret this result as normal/abnormal. RBC (test code = 789-8) See_Comment L [Automated [employer]] The system which generated this result transmitted reference range: 3.93 - 5.25 10*6/?L. The reference range was not used to interpret this result as normal/abnormal. HGB (test code = 718-7) 11.7 g/dL 11.6-15.0 HCT (test code = 4544-3) 37.4 % 35.7-45.2 MCV (test code = 787-2) 98.9 fL 80.6-95.5 H MCH (test code = 785-6) 31.0 pg 25.9-32.8 MCHC (test code = 786-4) 31.3 g/dL 31.6-35.1 L RDW-SD (test code = 13315-0) 49.1 fL 39.0-49.9 RDW-CV (test code = 788-0) 13.5 % 12.0-15.5 PLT (test code = 777-3) See_Comment [Automated messa ge] The system which generated this result transmitted reference range: 166 - 358 10*3/?L. The reference range was not used to interpret this result as normal/abnormal. MPV (test code = 97906-2) 10.3 fL 9.5-12.9 NRBC/100 WBC (test code = 4697524589) See_Comment [Automated [employer] ssage] The system which generated this result transmitted reference range: 0.0 - 10.0 /100 WBCs. The reference range was not used to interpret this result as normal/abnormal. NRBC x10^3 (test code = 8435789973) <0.01 See_Comment [Automated messa ge] The system which generated this result transmitted reference range: 10*3/?L. The reference range was not used to interpret this result as normal/abnormal. GRAN MAT (NEUT) % (test code = 770-8) 75.8 % IMM GRAN % (test code = 3764616710) 0.20 % LYMPH % (test code = 736-9) 15.7 % MONO % (test code = 5905-5) 5.9 % EOS % (test code = 713-8) 1.4 % BASO % (test code = 706-2) 1.0 % GRAN MAT x10^3(ANC) (test code = 0114813322) 3.73 10*3/uL 1.88-7.09 IMM GRAN x10^3 (test code = 1827553591) <0.03 0.00-0.06 LYMPH x10^3 (test code = 731-0) 0.77 10*3/uL 1.32-3.29 L MONO x10^3 (test code = 742-7) 0.29 10*3/uL 0.33-0.92 L EOS x10^3 (test code = 711-2) 0.07 10*3/uL 0.03-0.39 BASO x10^3 (test code = 704-7) 0.05 10*3/uL 0.01-0.07 Lab Interpretation (test code = 55508-6) Abnormal [facility] Notes Date/Time Note Provider Source 2023-12-28 23:34:34 PT D/C home. GCS15, VS stable. Given D/C paperwork. Pt ambulatory at time of discharge, taken by w/c to auto. Pt educated on med usage, follow up care, s/s worsening condition, need for hydration. Pt verbalized understanding.' Pt left ED in NAD Carol Matute RN [facility] 2023-12-28 20:34:23 Pt arrives ambulatory to ED brought in by caregiver after finding her on the bathroom floor face down. She has a large hematoma to left eye. Yvette Ford RN [facility] 2023-12-12 20:59:58 Pt dc'd via WC with longterm caregiver. application software engineer provided with DC instructions and v/u of worsening s/s. [facility] 2023-12-12 19:10:33 Patient arrived to ED via WC with staff member from longterm c/o fall that happened around 1540 today. Staff states no LOC. Patient did hit head. There is a cut on her left shoulder and a swollen left ear. Doesn't take blood thinners. Frank Ji RN [facility] 2023-12-12 19:05:00 [facility] Emergency Department Note Patient Name: Coty Paz Date of : 1950 73 year old female Treatment Room: [facility] Primary Care Physician: Momo Daniels Patient Escorted by: Friend [6] Mode of Arrival: Personal means [1] EMS Treatment Prior to ED Arrival: [employer] treatment: None Travel and Exposure Screening: Symptoms Does patient have any of these symptoms?: (not recorded) Exposure Screening Has patient had contact with someone with a communicable disease in the last month?: (not recorded) Diseases exposed to:: (not recorded) Is Patient ?: (not recorded) Exposure Date: (not recorded) Chief Complaint: Chief Complaint Patient presents with Fall History of Present Illness: Patient is brought to the emerged department from the longterm. The patient fell and hit her head at approximately 1540 today. There is no loss of conscious and the patient does not take anticoagulants per the caregiver. The patient is nonverbal and mentally impaired and thus unable to contribute to the history. History provided by: Caregiver History limited by: Patient nonverbal Past Medical History/Immunizations: Past Medical History: Diagnosis Date Allergic Bipolar affective disorder Fibroids HTN (hypertension), benign Hypothyroidism Insomnia Mental retardation Nonorganic enuresis PCK (polycystic kidney disease) Type II or unspecified type diabetes mellitus without mention of complication, not stated as uncontrolled Tetanus received in last 5 years: Unknown Allergies: No Known Allergies Past Social History: Tobacco Use Former Smokeless Tobacco: Former user of smokeless tobacco. Alcohol Use No. Drug Use No. Past Surgical History: Past Surgical History: Procedure Laterality Date HYSTERECTOMY ACKNOWLEDGEMENT AND CONSENT for fibroids Review of Systems: Review of Systems Unable to perform ROS: Psychiatric disorder Constitutional: Negative for activity change and fever. Gastrointestinal: Negative for vomiting. Physical Exam: ED Triage Vitals [12/12/231912] Weight 50 kg (110 lb 4.8 oz) Actual or estimated Actual Height 1.549 m (5' 1") BP 125/73 Pulse 84 Resp 14 Temp 37 ?C (98.6 ?F) Temp source Oral SpO2 100 % Measured on Room air Physical Exam HENT: Head: Normocephalic. Right Ear: Tympanic membrane, ear canal and external ear normal. There is no impacted cerumen. Left Ear: Tympanic membrane and ear canal normal. Ears: Comments: There is left auricular ecchymosis on swelling Nose: Nose normal. No congestion or rhinorrhea. Eyes: General: No scleral icterus. Right eye: No discharge. Left eye: No discharge. Conjunctiva/sclera: Conjunctivae normal. Cardiovascular: Rate and Rhythm: Normal rate and regular rhythm. Pulses: Normal pulses. Heart sounds: Normal heart sounds. Pulmonary: Effort: Pulmonary effort is normal. No respiratory distress. Breath sounds: Normal breath sounds. No wheezing or rales. Abdominal: General: Bowel sounds are normal. There is no distension. Palpations: Abdomen is soft. Tenderness: There is no abdominal tenderness. Musculoskeletal: Cervical back: Neck supple. No rigidity or tenderness. Comments: Is an abrasion to the left upper arm Skin: General: Skin is warm. Capillary Refill: Capillary refill takes less than 2 seconds. Coloration: Skin is not pale. Findings: Bruising present. Comments: Abrasion to left shoulder Neurological: Mental Status: She is alert. Motor: No weakness. Radiology: CT HEAD WO CONTRAST Preliminary Result EXAM: CT HEAD WO CONTRAST HISTORY: 73 years-old Female; Provided indication: Head trauma, moderate-severe . History obtained from EPIC: Fall. TECHNIQUE: Axial CT of the head was performed and reconstructed at 5 mm intervals. Coronal and sagittal reformatted images were generated. COMPARISON: CT dated 06/30/2023 FINDINGS: The ventricles and cerebral sulci are normal in caliber and configuration. No midline shift or pathological extra-axial fluid collection is present. The basal cisterns are unremarkable. No acute intracranial hemorrhage or significant mass effect is visualized. Periventricular and subcortical white matter hypodensities are nonspecific but likely represent sequelae of microvascular ischemic disease. The rojas-white matter differentiation is preserved. The mastoid air cells and paranasal air sinuses are clear. The calvarium and central skull base are unremarkable. IMPRESSION No acute intracranial abnormality. Preliminary Report Dictated by Resident: Alfonso Montelongo Lab Results: Lab Results - No data to display EKG: If EKG completed, see Procedure Note. Orders and Treatments: Orders Placed This Encounter Procedures CT HEAD WO CONTRAST Orders Placed This Encounter Medications tetanus-diphtheria toxoids (TENIVAC) 5-2 Lf unit/0.5 mL injection 0.5 mL First Provider Eval: ED Events Date/Time Event User Comments 12/12/231911 Medical Screening Begins BENIGNO MATHIS DO -- 12/12/231911 First Provider Evaluation BENIGNO MATHIS DO -- ED COURSE Diagnosis/Impression as of 12/12/232038 Injury of head, initial encounter Fall from standing, initial encounter Abrasion of left shoulder, initial encounter Procedures: Procedures MDM: Medical Decision Making Patient was evaluated for the complaint of Fall Diagnoses considered but not limited to: Epidural Hematoma Intracerebral Hemorrhage Subarachnoid Hemorrhage Subdural Hematoma Abrasion Concussion with loss of consciousness Contusion Fracture Laceration. Labs:were not ordered. Imaging:Ordered, and resulted, any relevant abnormalities were considered. Procedures:were not performed. History, physical exam findings, results of visit, diagnosis, medication regimens and plan of future care have been considered. Additional MDM may be found in the ED course. Vital signs were rechecked before final disposition and determined to be stable. Amount and/or Complexity of Data Reviewed Radiology: ordered. Decision-making details documented in ED Course. Risk Prescription drug management. Flowsheet Documentation: Scoring Tools: No data recorded Disposition/Condition: ED Disposition ED Disposition Disch - Home Condition Stable Comment -- Discharge Medications: Patient's Medications START taking these medications No medications on file CONTINUE taking these medications which have NOT CHANGED ARTIFICIAL TEAR (DEXT 40-HPM) OPHTHALMIC prn BENADRYL ALLERGY 25 MG ORAL TAB 50mg po q12hrs prn BENZTROPINE 1 MG TABLET Take 1 mg by mouth daily. CHLORHEXIDINE (PERIDEX) 0.12 % MOUTHWASH Swish and spit out 15 mL 2 (two) times daily. CYANOCOBALAMIN, VITAMIN B-12, 1,000 MCG CAP Take 1,000 mcg by mouth daily. DICLOFENAC 75 MG EC TABLET FLUOXETINE 20 MG CAPSULE Take 20 mg by mouth daily. LEVOTHYROXINE 75 MCG TABLET Take 75 mcg by mouth every morning. LITHIUM CARBONATE 300 MG TABLET Take 1 tablet by mouth 2 (two) times daily. METFORMIN 1,000 MG ORAL TAB 1 tab po BID OXYBUTYNIN CHLORIDE 5 MG ORAL TAB BID PANTOPRAZOLE 20 MG EC TABLET Take 20 mg by mouth daily. QUETIAPINE 100 MG TABLET Take 100 mg by mouth daily. TYLENOL EXTRA STRENGTH 500 MG ORAL TAB 2tabs po BID prn START taking Modified Medications as Prescribed No medications on file STOP taking these medications No medications on file Follow-up: Contact information for follow-up Momo Daniels Specialty: [facility]FAMILY MEDICINE Relationship: PCP - General [address] [facility] [address] [facility] [id number] Instructions: As needed Electronically signed by: Benigno Mathis DO 12/12/232038 [facility] 2023-11-07 08:15:00 Images from the original note were not included. Venipuncture collection performed by clean technique on the left anticubitus. Total of 1 attempts were made. Slight pressure and a bandage/dressing were applied to the site(s). The patient experienced no complications. The following specimens were processed according to instructions and sent to [facility] laboratories per lab order on 11/07/2023 : LT BLUE SST 1 RED LAV 2 PPT DK GREEN (LiHep) DK GREEN (SodH) ROJAS DK BLUE (K2) DK BLUE (S) ACD Blood Culture NIPT/NTD [facility] 2023-06-30 14:22:46 Pt given printed and verbal discharge instructions regarding laceration, lip or mouth, encouraged hydration, 1 Prescriptions provided Discussed ibuprofen and to take with food to avoid GI distress. Pt verbalized understanding of instructions, pt awake alert oriented, resp reg unlabored, skin w/d, color appropriate for race, moves all ext well,pt encouraged to follow up with pcp Advised to seek medical attention for new/prolonged/worsening of symptoms, No adverse reaction to meds given in ER noted upon discharge Awake, alert oriented, resp reg unlabored, skin w/d, pt leaving amb with steady gait, in no apparent distress, Patsy Martinez RN [facility] 2023-06-30 11:28:09 Pt has upper lip laceration and laceration in the inner bottom lip. Caregiver reports pt fell. Unsure of what occurred. Fall happened approx 45 mins ago. Carol Matute RN [facility] 2023-04-17 08:15:00 Images from the original note were not included. Venipuncture collection performed by clean technique on the left anticubitus. Total of 1 attempts were made. Slight pressure and a bandage/dressing were applied to the site(s). The patient experienced no complications. The following specimens were processed according to instructions and sent to [facility] laboratories per lab order on 04/17/2023 : LT BLUE SST 3 RED LAV 1 PPT DK GREEN (LiHep) DK GREEN (SodH) ROJAS DK BLUE (K2) DK BLUE (S) ACD Blood Culture NIPT/NTD Patient refused urine collection. Patient caregiver states patient never wants to leave urine sample. [facility] 2022-12-12 10:15:00 Formatting of this n ote is different from the original. Images from the original note were not included. Pt could not void today, gave pts caregiver a urine kit. Venipuncture collection performed by clean technique on the right anticubitus. Total of 1 attempts were made. Slight pressure and a bandage/dressing were applied to the site(s). The patient experienced no complications. The following specimens were processed according to instructions and sent to [facility] laboratories per lab order on 12/12/2022: LT BLUE SST 3 RED LAV 2 PPT DK GREEN (LiHep) DK GREEN (SodH) ROJAS DK BLUE (K2) DK BLUE (S) ACD Blood Culture NIPT/NTD [facility]
[2024-01-22] MEDS ORDERED: IBUPROFEN 400 MG TAB ONE (08:34)
[2024-01-22] MEDS ORDERED: HYDROCODONE/APAP 5/325 MG TAB ONE (08:34)
--- NOTE | 2024-01-22 09:14 | RAD REPORT ---
EXAM: Head Brain Wo Cont HISTORY: Headache;Pain COMPARISON: 11/17/2014 and 09/02/[address] TECHNIQUE: Multiple contiguous axial images were obtained for a CT of the brain without contrast. Sag ittal and coronal reformats were performed. One or more of the following dose reduction techniques were used: Automated exposure control, adjus tment of the mA and kV according to patient size, and iterative reconstruction. Unless otherwise specified, incidental findings do not require dedicated imaging follow-up. FINDINGS: No evidence of hydrocephalus, intracranial hemorrhage, or extra-axial fluid collection. Moderate brain atrophy with moderate periventricular and deep white matter chronic microvascular isc hemic changes present. Findings are stable. The calvarium is intact. The visualized paranasal sinuses and mastoid air cells are essentially clear . IMPRESSION: No evidence of acute intracranial abnormality. Stable chronic findings as above.
--- NOTE | 2024-01-22 09:38 | RAD REPORT ---
EXAM: CT CHEST, ABDOMEN AND PELVIS WITHOUT CONTRAST CLINICAL INDICATION: Female, 73 years old. [facility] MAIN PAIN Bed: TECHNIQUE: CT chest, abdomen and pelvis was performed, without IV contrast, as per department protoco l. Axial, sagittal and coronal reconstructions were obtained. One or more of the following dose reduction techniques were used: Automated exposure control, adjustment of the mA and/or kV according to the patient size, and/or iterative reconstruction. Unless otherwise specified, incidental findings do not require dedicated imaging follow-up. COMPARISON: No prior exam. FINDINGS: The lack of intravenous contrast limits the sensitivity of this exam for evaluation of solid visceral organs, vascular structures, and retroperitoneum. Chest: LOWER NECK/CHEST WALL: Visualized thyroid gland and soft tissues are normal. LUNGS AND AIRWAYS: Airways are clear. No evidence of airspace or interstitial process. No nodules. PLEURA: Trace bilateral pleural effusion. No pneumothorax. Hemidiaphragms are normally positioned. MEDIASTINUM AND LYMPH NODES: No mediastinal mass or fluid collection. Normal size mediastinal, hilar, and axillary lymph nodes. THORACIC AORTA: Normal caliber and configuration. PULMONARY ARTERIES: Normal caliber. HEART: Unremarkable. Abdomen/Pelvis LIVER: Normal in size and contour. No focal lesion. GALLBLADDER/BILE DUCTS: No biliary ductal dilatation. PANCREAS: No mass, ductal dilation, or ivana-pancreatic fluid. SPLEEN: Normal size. No focal lesion. ADRENALS: Normal; no mass. KIDNEYS AND URETERS: Normal size and contour. No hydronephrosis. GASTROINTESTINAL TRACT: Stomach is non-dilated. Small bowel has normal course and caliber. No colonic wall thickening or pericolonic inflammatory changes. PERITONEUM: No free fluid. LYMPH NODES: No lymphadenopathy. ABDOMINAL AORTA AND OTHER VESSELS: Normal caliber aorta and IVC. URINARY BLADDER: Normal contour. REPRODUCTIVE ORGANS: No pathologic process. MUSCULOSKELETAL: No acute or suspicious osseous abnormality. Some deformities and fracture malunion a long the left ribs, chronic in appearance ADDITIONAL FINDINGS: None CT images of the head included on this exam are reported separately on CT brain of the same day. IMPRESSION: Trace bilateral pleural effusions. No other acute or significant abnormalities in the chest, abdomen, or pelvis.
[2024-01-22] MEDS ORDERED: CEPHALEXIN 250 MG CAP ONE (10:15)
[2024-01-22] MEDS ORDERED: TDAP (DIPHTH,PERTUSS(ACELL),TET VAC) 0.5 ML VIAL IMVAC ONE (10:16)
[2024-01-22 10:25] LABS: Specific Gravity 1.012 (1.005-1.030); Sqamous Epithelial <5 /HPF (None Seen); Transitional Epithelial <5 /HPF (None Seen); Urine Bacteria >50 /HPF (<20); Urine Bilirubin NEGATIVE (Negative); Urine Blood Negative (Negative); Urine Clarity Extremely Turbid (Clear); Urine Color Light-Yellow (Yellow); Urine Culture Reflex Order REFLEXED; Urine Glucose NEGATIVE (Negative); Urine Ketones NEGATIVE (Negative); Urine Microscopic Reflex YN ORDER UMIC; Urine Nitrite NEGATIVE (Negative); Urine Protein NEGATIVE (Negative); Urine RBC <5 /HPF (None Seen); Urine Urobilinogen Normal (Normal); Urine Yeast (Budding) Trace /HPF (None Seen); Urine pH 6.5 (5.0-7.0)
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
--- NOTE | 2024-01-22 10:39 | EDPHYS ---
Physician Documentation [facility] Name: Coty Paz Age: 73 yrs Sex: Female : 1950 Arrival Date: 01/22/2024 Time: 08:09 Bed 14 Private MD: ED Physician Dawson Cheung HPI: 01/21 10:34 This 73 yrs old Female presents to ER via Wheelchair with complaints of Fall fredi Injury. 10:34 Details of fall: The patient fell from an upright position, while walking. Onset: The fredi symptoms/episode began/occurred just prior to arrival. Associated injuries: The patient sustained injury to the head, laceration, pain, swelling. Severity of symptoms: At their worst the symptoms were mild, in the emergency department the symptoms are unchanged. The patient has not experienced similar symptoms in the past. Historical: - PMHx: 08:22 Diabetes - NIDDM; Bipolar disorder; iw - Immunization history:: Adult Immunizations up to date. - Infectious Disease History:: Denies. - Social history:: Smoking status: Patient denies any tobacco usage or history of. ROS: 10:35 Constitutional: Negative for fever, chills, and weight loss, Eyes: Negative for injury, fredi pain, redness, and discharge, ENT: Negative for injury, pain, and discharge, Neck: Negative for injury, pain, and swelling, Cardiovascular: Negative for chest pain, palpitations, and edema, Respiratory: Negative for shortness of breath, cough, wheezing, and pleuritic chest pain, Abdomen/GI: Negative for abdominal pain, nausea, vomiting, diarrhea, and constipation, Back: Negative for injury and pain, : Negative for injury, bleeding, discharge, and swelling, MS/Extremity: Negative for injury and deformity, Skin: Negative for injury, rash, and discoloration, Psych: Negative for depression, anxiety, suicide ideation, homicidal ideation, and hallucinations, Allergy/Immunology: Negative for hives, rash, and allergies, Endocrine: Negative for neck swelling, polydipsia, polyuria, polyphagia, and marked weight changes, Hematologic/Lymphatic: Negative for swollen nodes, abnormal bleeding, and unusual bruising, 10:35 Neuro: Positive for headache, of the face, Exam: 10:35 Constitutional: This is a well developed, well nourished patient who is awake, alert, fredi and in no acute distress. Head/Face: Normocephalic, atraumatic. Eyes: Pupils equal round and reactive to light, extra-ocular motions intact. Lids and lashes normal. Conjunctiva and sclera are non-icteric and not injected. Cornea within normal limits. Periorbital areas with no swelling, redness, or edema. ENT: Nares patent. No nasal discharge, no septal abnormalities noted. Tympanic membranes are normal and external auditory canals are clear. Oropharynx with no redness, swelling, or masses, exudates, or evidence of obstruction, uvula midline. Mucous membranes moist. Neck: Trachea midline, no thyromegaly or masses palpated, and no cervical lymphadenopathy. Supple, full range of motion without nuchal rigidity, or vertebral point tenderness. No Meningismus. Chest/axilla: Normal chest wall appearance and motion. Nontender with no deformity. No lesions are appreciated. Cardiovascular: Regular rate and rhythm with a normal S1 and S2. No gallops, murmurs, or rubs. Normal PMI, no JVD. No pulse deficits. Respiratory: Lungs have equal breath sounds bilaterally, clear to auscultation and percussion. No rales, rhonchi or wheezes noted. No increased work of breathing, no retractions or nasal flaring. Abdomen/GI: Soft, non-tender, with normal bowel sounds. No distension or tympany. No guarding or rebound. No evidence of tenderness throughout. Back: No spinal tenderness. No costovertebral tenderness. Full range of motion. Female : Normal external genitalia. MS/ Extremity: Pulses equal, no cyanosis. Neurovascular intact. Full, normal range of motion. Neuro: Awake and alert, GCS 15, oriented to person, place, time, and situation. Cranial nerves II-XII grossly intact. Motor strength 5/5 in all extremities. Sensory grossly intact. Cerebellar exam normal. Normal gait. Psych: Awake, alert, with orientation to person, place and time. Behavior, mood, and affect are within normal limits. 10:35 Skin: injury, laceration(s), the wound is approximately 2.5 cm(s), with a depth of .25 cm(s), of the face, that can be described as Vital Signs: 08:22 BP 137 / 75; Pulse 84; Resp 16; Temp 97.9; Pulse Ox 97% on R/A; iw 10:35 BP 132 / 81; Pulse 70; Resp 17; Pulse Ox 99% on R/A; rs5 [place] Coma Score: 10:36 Eye Response: spontaneous(4). Motor Response: obeys commands(6). Verbal Response: fredi oriented(5). Total: 15. MDM: 08:19 Medical Screening Exam initiated fredi 10:36 Differential diagnosis: Contusion of Hematoma on head, Laceration of scalp, fredi Intracranial bleed- Concussion without LOC. cerebral contusion. Differential diagnosis: abrasion, closed head injury, contusion, multiple trauma, sprain, strain. Data reviewed: vital signs, nurses notes, lab test result(s), radiologic studies, CT scan. Consideration of Admission/Observation Escalation of care including admission/observation considered. I considered the following discharge prescriptions or medication management in the emergency department Medications were administered in the Emergency Department. See MAR. Test considered but Not performed: Labs: NO CBC, NO COMP MET. 01/21 08:22 Order name: Urinalysis w/ reflexes; Complete Time: 10:33 [facility] 01/21 10:30 Order name: Urine Culture EDMS 01/21 08:22 Order name: CT Head Brain wo Cont; Complete Time: 09:54 [facility] 01/21 08:22 Order name: CT Chest Abdomen Pelvis W/O Contrast; Complete Time: 09:54 [facility] 01/21 08:22 Order name: Ice pack; Complete Time: 08:57 [facility] 01/21 10:33 Order name: Dressing - Wound; Complete Time: 10:36 [facility] 01/21 10:33 Order name: Gloves, Sterile; Complete Time: 10:36 [facility] 01/21 10:33 Order name: Setup Suture Tray; Complete Time: 10:36 [facility] Administered Medications: 08:30 Drug: HYDROcodone-acetaminophen PO 5 mg-325 mg 1 tabs PO once Route: PO; rs5 09:35 Follow up: Response: No adverse reaction; Pain is decreased rs5 08:30 Drug: Ibuprofen PO 400 mg PO once Route: PO; rs5 09:30 Follow up: Response: No adverse reaction rs5 10:47 Drug: Cephalexin PO 500 mg PO once Route: PO; iw 10:47 Drug: Boostrix Tdap IM 0.5 ml IM once; as a single dose Route: IM; Site: right deltoid; iw Disposition Summary: 01/22/24 10:39 Discharge Ordered Notes: Location: Home fredi Problem: new fredi Symptoms: have improved fredi Condition: Stable fredi Diagnosis - Fall on same level, unspecified fredi - Laceration without foreign body of other part of head - 2.5 CM LACERATION fredi - UTI/ Urinary tract infection, site not specified fredi Followup: fredi - With: Private Physician - When: 2 - 3 days - Reason: Recheck today's complaints, Continuance of care, Re-evaluation by your physician Discharge Instructions: - Discharge Summary Sheet fredi - Dysuria fredi - Head Injury, Adult fredi - Laceration Care, Adult fredi - Urinary Tract Infection, Adult fredi - Urinary Tract Infection, Adult, [id number] fredi - Laceration Care, Adult, [id number] fredi - Head Injury, Adult, [id number] fredi - Sutures, [place], or Adhesive Wound Closure, [id number] fredi Forms: - Medication Reconciliation Form fredi - Antibiotic Education fredi - Prescription Opioid Use fredi - Patient Portal Instructions fredi - Leadership Thank You Letter [facility] Prescriptions: - Cephalexin 500 mg Oral capsule - take 1 capsule ORAL route every 8 hours for 10 days; 21 capsule; Refills: 0, fredi Product Selection Permitted Signatures: Dispatcher [employer] Dawson Pérez MD MD cha Williams, Irene, RN RN Donta Small RN RN rs5
[2024-01-22 16:20] VITALS: BP 137/75; TEMP 97.9; O2SAT 97
== END 2024-01-22 10:47 | disposition home or self-care (01) ==
LOC: ER 08:09
DX: S01.81XA Laceration without foreign body of other part of head, initial encounter (principal); N39.0 Urinary tract infection, site not specified; W18.30XA Fall on same level, unspecified, initial encounter
CPT/HCPCS: 70450; 71250; 74176; 81001; 87086; 87088

== ENCOUNTER 2024-03-02 14:36 | Emergency (ER) | payer OTHER ==
--- OUTSIDE RECORDS SUMMARY | 2024-03-02 14:40 | XMS REPORT | Continuity of Care Document ---
Author Name Unknown Address [address] [facility]. [address] [place] [address] [facility] Address [address] [facility] [place] [address] Care Team Providers Care Call Center Supervisor Name Role Phone Warren Daniels Primary Care Physician [phone] SAMIR CHEUNG Attending Clinician Unavailable Samir Kelly Attending Clinician [phone] JULI HOUGH Attending Clinician Unavailab JULI Ramos Attending Clinician Unavailab Juli Rosado Attending Clinician BENIGNO MATHIS Attending Clinician Unavailable BENIGNO MATHIS Attending Clinician Unavailable Benigno Mathsi DO Attending Clinician [phone] P[facility] Attending Clinician UnavailSkip Ugarte MD Attending Clinician [phone] SKIP BAPTISTE Attending Clinician Unavaila Lacy Benoit Attending Clinician Unavailable Lacy Mendez Attending Clinician [phone] [facility] Attending Clinician UnavailAgustina Ugarte MDammed Andriy Attending Clinician + [phone] Doctor Unassigned, [place] Attending Clinician U Madiha Reeder MD Attending Clinician [phone] MADIHA CHOW Attending Clinician UnavailJIGAR Anderson Attending Clinician UnavailJigar Good Attending Clinician [phone] URBANO SCHNEIDER Attending Clinician UnavailUrbano Moore MD Attending Clinician + [phone] Radiology Attending Clinician Unavailable RADIOLOGY Attending Clinician Unavailable ALEX HICKS Attending Clinician Unavailable Alex Sanders Attending Clinician [phone] LIZ FORD Attending Clinician Unavailab Liz Boucher DO Attending Clinician [phone] VAUGHN BARBA Attending Clinician Unavailable Vaughn Barba MD Attending Clinician [phone] JESSI VELASQUEZ Attending Clinician Unavailable WILLIAM DUMONT [...] Date Source MEDICARE PART A \\T\\ B [id number] 1993 00:00:00 [place] [id number] 2009 00:00:00 [facility] DUAL COMP HMO D [facility] [id number] 2022 00:00:00 Problems Condition Name Condition Details Condition Category Status Onset Date Resolution Date Last Treatment Date Treating Clinician Comments Source [place] overdose Disease Active 2017-04 00:00: 00 [facility] [place] toxicity [place] toxicity Disease Active 2017-04 00:00: 00 [facility] [place] overdose Disease Active 2017-04 00:00: 00 [facility] Allergies, Adverse Reactions, Alerts Allergy Name Allergy Type Status Severity Reaction(s) Onset Date Inactive Date Treating Clinician Comments Source NO KNOWN ALLERGIE S Drug Class Active [facility] Social History Social Habit Start Date Stop Date Quantity Comments Source History of tobacco use Current smoker [facility] Gender identity [facility] Sexual orientation [facility] Alcoholic beverage intake 2024-02-10 00:00:00 2024-02-10 00:00:00 Current non-drinker of alcohol (finding) [facility] Tobacco use and exposure 2024-01-14 00:00:00 2024-01-14 00:00:00 Former smokeless tobacco user [facility] History of Social function 2024-01-14 00:00:00 2024-01-14 00:00:00 [facility] Alcohol intake 2023-06-30 00:00:00 2023-06-30 00:00:00 Current non-drinker of alcohol (finding) [facility] Exposure to SARS-CoV-2 (event) 2022-07-28 00:00:00 2022-08-07 09:53:00 Not sure [facility] Sex assigned at 1950 00:00:00 1950 00:00:00 [facility] Smoking Status Start Date Stop Date Source Ex-smoker 2024-01-14 00:00:00 2024-01-14 00:00:00 [facility] Medications Ordered Medication Name Filled Medication Name Start Date Stop Date Current Medication? Ordering Clinician Indication Dosage Frequency Signature (SIG) Comments Components Source acetaminoph en (TYLENOL) tablet 1,000 mg 06-29 17:15: 00 06-29 17:50 :00 No 1000mg 1,000 mg, Oral, ONCE, 1 dose, On 06/30/23 at 1215, Routine [facility] chlorhexidi ne (PERIDEX) 0.12 % mouthwash 06-29 00:00: 00 Yes [id number] 15mL Swish and spit out 15 mL 2 (two) times daily. [facility] chlorhexidi ne (PERIDEX) 0.12 % mouthwash 06-29 00:00: 00 06-29 00:00 :00 No [id number] 15mL Swish and spit out 15 mL 2 (two) times daily. [facility] ibuprofen (IBU) tablet 600 mg 09-02 05:30: 00 09-02 04:30 :00 No 600mg 600 mg, Oral, ONCE, 1 dose, On 09/02/21 at 0030, TIERNEY [facility] acetaminoph en (TYLENOL) tablet 1,000 mg 09-02 05:30: 00 09-02 04:29 :00 No 1000mg 1,000 mg, Oral, ONCE, 1 dose, On 09/02/21 at 0030, TIERNEY [facility] OXYBUTYNIN CHLORIDE 5 MG ORAL TAB 04-15 10:50: 45 Yes BID [facility] FLUoxetine 20 mg capsule 04-15 10:50: 45 Yes 20mg Take 20 mg by mouth daily. [facility] pantoprazol e 20 mg EC tablet 04-15 10:50: 45 Yes 20mg Take 20 mg by mouth daily. [facility] levothyroxi ne 75 mcg tablet 04-15 10:50: 45 Yes 75ug Take 75 mcg by mouth every morning. [facility] benztropine 1 mg tablet 04-15 10:50: 45 Yes 1mg Take 1 mg by mouth daily. [facility] QUEtiapine 100 mg tablet 04-15 10:50: 45 Yes 100mg Take 100 mg by mouth daily. [facility] diclofenac 75 mg EC tablet 2019-04 00:00: 00 Yes [facility] METFORMIN 1,000 MG ORAL TAB 2017-04 12:14: 36 Yes 1 tab po BID [facility] ARTIFICIAL TEAR (DEXT 40-HPM) OPHTHALMIC 2017-04 12:14: 36 Yes prn [facility] TYLENOL EXTRA STRENGTH 500 MG ORAL TAB 2017-04 12:14: 36 Yes 2tabs po BID prn [facility] BENADRYL ALLERGY 25 MG ORAL TAB 2017-04 12:14: 36 Yes 50mg po q12hrs prn [facility] lithium carbonate 300 mg tablet 2017-04 00:00: 00 Yes 300mg Take 1 tablet by mouth 2 (two) times daily. [facility] cyanocobala min, vitamin B-12, 1,000 mcg Cap 2017-04 00:00: 00 Yes 1000ug Take 1,000 mcg by mouth daily. [facility] Immunizations Ordered Immunization Name Filled Immunization Name Date Status Comments Source TD Pres-Free 2023-12-12 00:00:00 Completed [facility] TD Pres-Free 2023-12-12 00:00:00 Completed [facility] TD, NOS 2021-06-15 00:00:00 Completed [facility] Td 2021-06-15 00:00:00 Completed [facility] Td 2021-06-15 00:00:00 Completed [facility] Td 2021-06-15 00:00:00 Completed [facility] Td 2021-06-15 00:00:00 Completed [facility] Td 2021-06-15 00:00:00 Completed [facility] Td 2021-06-15 00:00:00 Completed [facility] Td 2021-06-15 00:00:00 Completed [facility] Td 2021-06-15 00:00:00 Completed [facility] Td 2021-06-15 00:00:00 Completed [facility] Td 2021-06-15 00:00:00 Completed [facility] TD, NOS 2021-06-15 00:00:00 Completed [facility] TD, NOS 2021-06-15 00:00:00 Completed [facility] TD, NOS 2021-06-15 00:00:00 Completed [facility] TD, NOS 2021-06-15 00:00:00 Completed [facility] TD, NOS 2021-06-15 00:00:00 Completed [facility] TD, NOS 2021-06-15 00:00:00 Completed [facility] SARS-COV-2 COVID-19 PFIZER VACCINE 2020-07-07 00:00:00 Completed [facility] SARS-COV-2 COVID-19 PFIZER VACCINE 2020-07-07 00:00:00 Completed [facility] SARS-COV-2 COVID-19 PFIZER VACCINE 2020-07-07 00:00:00 Completed [facility] SARS-COV-2 COVID-19 PFIZER VACCINE 2020-07-07 00:00:00 Completed [facility] SARS-COV-2 COVID-19 PFIZER VACCINE 2020-07-07 00:00:00 Completed [facility] SARS-COV-2 COVID-19 PFIZER VACCINE 2020-07-07 00:00:00 Completed [facility] SARS-COV-2 COVID-19 PFIZER VACCINE 2020-07-07 00:00:00 Completed [facility] SARS-COV-2 COVID-19 PFIZER VACCINE 2020-07-07 00:00:00 Completed [facility] SARS-COV-2 COVID-19 PFIZER VACCINE 2020-07-07 00:00:00 Completed [facility] SARS-COV-2 COVID-19 PFIZER VACCINE 2020-07-07 00:00:00 Completed [facility] SARS-COV-2 COVID-19 PFIZER VACCINE 2020-07-07 00:00:00 Completed [facility] SARS-COV-2 COVID-19 PFIZER VACCINE 2020-07-07 00:00:00 Completed [facility] SARS-COV-2 COVID-19 PFIZER VACCINE 2020-07-07 00:00:00 Completed [facility] SARS-COV-2 COVID-19 PFIZER VACCINE 2020-07-07 00:00:00 Completed [facility] SARS-COV-2 COVID-19 PFIZER VACCINE 2020-07-07 00:00:00 Completed [facility] SARS-COV-2 COVID-19 PFIZER VACCINE 2020-07-07 00:00:00 Completed [facility] SARS-COV-2 COVID-19 PFIZER VACCINE 2020-07-07 00:00:00 Completed [facility] SARS-COV-2 COVID-19 PFIZER VACCINE 2020-06-15 00:00:00 Completed [facility] SARS-COV-2 COVID-19 PFIZER VACCINE 2020-06-15 00:00:00 Completed [facility] SARS-COV-2 COVID-19 PFIZER VACCINE 2020-06-15 00:00:00 Completed [facility] SARS-COV-2 COVID-19 PFIZER VACCINE 2020-06-15 00:00:00 Completed [facility] SARS-COV-2 COVID-19 PFIZER VACCINE 2020-06-15 00:00:00 Completed [facility] SARS-COV-2 COVID-19 PFIZER VACCINE 2020-06-15 00:00:00 Completed [facility] SARS-COV-2 COVID-19 PFIZER VACCINE 2020-06-15 00:00:00 Completed [facility] SARS-COV-2 COVID-19 PFIZER VACCINE 2020-06-15 00:00:00 Completed [facility] SARS-COV-2 COVID-19 PFIZER VACCINE 2020-06-15 00:00:00 Completed [facility] SARS-COV-2 COVID-19 PFIZER VACCINE 2020-06-15 00:00:00 Completed [facility] SARS-COV-2 COVID-19 PFIZER VACCINE 2020-06-15 00:00:00 Completed [facility] SARS-COV-2 COVID-19 PFIZER VACCINE 2020-06-15 00:00:00 Completed [facility] SARS-COV-2 COVID-19 PFIZER VACCINE 2020-06-15 00:00:00 Completed [facility] SARS-COV-2 COVID-19 PFIZER VACCINE 2020-06-15 00:00:00 Completed [facility] SARS-COV-2 COVID-19 PFIZER VACCINE 2020-06-15 00:00:00 Completed [facility] SARS-COV-2 COVID-19 PFIZER VACCINE 2020-06-15 00:00:00 Completed [facility] SARS-COV-2 COVID-19 PFIZER VACCINE 2020-06-15 00:00:00 Completed [facility] TD, NOS 2020-04-07 00:00:00 Completed [facility] Td 2020-04-07 00:00:00 Completed [facility] Td 2020-04-07 00:00:00 Completed [facility] Td 2020-04-07 00:00:00 Completed [facility] Td 2020-04-07 00:00:00 Completed [facility] Td 2020-04-07 00:00:00 Completed [facility] Td 2020-04-07 00:00:00 Completed [facility] Td 2020-04-07 00:00:00 Completed [facility] Td 2020-04-07 00:00:00 Completed [facility] Td 2020-04-07 00:00:00 Completed [facility] Td 2020-04-07 00:00:00 Completed [facility] TD, NOS 2020-04-07 00:00:00 Completed [facility] TD, NOS 2020-04-07 00:00:00 Completed [facility] TD, NOS 2020-04-07 00:00:00 Completed [facility] TD, NOS 2020-04-07 00:00:00 Completed [facility] TD, NOS 2020-04-07 00:00:00 Completed [facility] TD, NOS 2020-04-07 00:00:00 Completed [facility] TD, NOS Unknown Completed [facility] SARS-COV-2 COVID-19 PFIZER VACCINE Unknown Completed [facility] TD, NOS Unknown Completed [facility] SARS-COV-2 COVID-19 PFIZER VACCINE Unknown Completed [facility] TD, NOS Unknown Completed [facility] SARS-COV-2 COVID-19 PFIZER VACCINE Unknown Completed [facility] TD, NOS Unknown Completed [facility] SARS-COV-2 COVID-19 PFIZER VACCINE Unknown Completed [facility] TD, NOS Unknown Completed [facility] SARS-COV-2 COVID-19 PFIZER VACCINE Unknown Completed [facility] TD, NOS Unknown Completed [facility] SARS-COV-2 COVID-19 PFIZER VACCINE Unknown Completed [facility] TD, NOS Unknown Completed [facility] SARS-COV-2 COVID-19 PFIZER VACCINE Unknown Completed [facility] TD Pres-Free Unknown Completed [facility] Vital Signs Vital Name Observation Time Observation Value Comments S ource Respiratory rate 2024-01-14 18:57:00 20 /min [facility] Body height 2024-01-14 18:57:00 160 cm [facility] Body weight 2024-01-14 18:57:00 49.896 kg [facility] BMI 2024-01-14 18:57:00 19.49 kg/m2 [facility] Systolic blood pressure 2023-12-29 04:30:00 171 mm[Hg] [facility] Diastolic blood pressure 2023-12-29 04:30:00 74 mm[Hg] [facility] Heart rate 2023-12-29 04:30:00 78 /min [facility] Respiratory rate 2023-12-29 04:30:00 18 /min [facility] Oxygen saturation in Arterial blood by Pulse oximetry 2023-12-29 04:30:00 100 /min [facility] Body temperature 2023-12-29 01:42:00 36.61 Glenny [facility] Body height 2023-12-29 01:42:00 154.9 cm [facility] Body weight 2023-12-29 01:42:00 49.896 kg [facility] BMI 2023-12-29 01:42:00 20.78 kg/m2 [facility] Systolic blood pressure 2023-12-13 00:13:00 125 mm[Hg] [facility] Diastolic blood pressure 2023-12-13 00:13:00 73 mm[Hg] [facility] Heart rate 2023-12-13 00:13:00 84 /min [facility] Body temperature 2023-12-13 00:13:00 37 Glenny [facility] Respiratory rate 2023-12-13 00:13:00 14 /min [facility] Body height 2023-12-13 00:13:00 154.9 cm [facility] Body weight 2023-12-13 00:13:00 50.032 kg [facility] BMI 2023-12-13 00:13:00 20.84 kg/m2 [facility] Oxygen saturation in Arterial blood by Pulse oximetry 2023-12-13 00:13:00 100 /min [facility] Systolic blood pressure 2023-06-30 19:13:00 147 mm[Hg] [facility] Diastolic blood pressure 2023-06-30 19:13:00 87 mm[Hg] [facility] Heart rate 2023-06-30 19:13:00 63 /min [facility] Body temperature 2023-06-30 19:13:00 36.67 Glenny [facility] Respiratory rate 2023-06-30 19:13:00 19 /min [facility] Oxygen saturation in Arterial blood by Pulse oximetry 2023-06-30 19:13:00 100 /min [facility] Body weight 2023-06-30 16:29:00 49.669 kg [facility] BMI 2023-06-30 16:29:00 17.15 kg/m2 [facility] Systolic blood pressure 2023-01-04 19:00:00 148 mm[Hg] [facility] Diastolic blood pressure 2023-01-04 19:00:00 79 mm[Hg] [facility] Heart rate 2023-01-04 19:00:00 68 /min [facility] Respiratory rate 2023-01-04 19:00:00 16 /min [facility] Oxygen saturation in Arterial blood by Pulse oximetry 2023-01-04 19:00:00 100 /min [facility] Body temperature 2023-01-04 16:29:00 36.72 Glenny [facility] Body height 2023-01-04 16:29:00 170.2 cm [facility] Body weight 2023-01-04 16:29:00 53.071 kg [facility] BMI 2023-01-04 16:29:00 18.32 kg/m2 [facility] Systolic blood pressure 2022-07-09 13:00:00 134 mm[Hg] [facility] Diastolic blood pressure 2022-07-09 13:00:00 73 mm[Hg] [facility] Heart rate 2022-07-09 13:00:00 81 /min [facility] Body temperature 2022-07-09 13:00:00 36.22 Glenny [facility] Respiratory rate 2022-07-09 13:00:00 18 /min [facility] Body height 2022-07-09 13:00:00 167.6 cm [facility] Body weight 2022-07-09 13:00:00 49.896 kg [facility] BMI 2022-07-09 13:00:00 17.75 kg/m2 [facility] Oxygen saturation in Arterial blood by Pulse oximetry 2022-07-09 13:00:00 99 /min [facility] Systolic blood pressure 2021-10-18 02:42:00 129 mm[Hg] [facility] Diastolic blood pressure 2021-10-18 02:42:00 77 mm[Hg] [facility] Heart rate 2021-10-18 02:42:00 66 /min [facility] Body temperature 2021-10-18 02:42:00 37.06 Glenny [facility] Respiratory rate 2021-10-18 02:42:00 20 /min [facility] Body height 2021-10-18 02:42:00 167.6 cm [facility] Body weight 2021-10-18 02:42:00 49.76 kg [facility] BMI 2021-10-18 02:42:00 17.71 kg/m2 [facility] Oxygen saturation in Arterial blood by Pulse oximetry 2021-10-18 02:42:00 97 /min [facility] Systolic blood pressure 2021-09-02 02:40:00 143 mm[Hg] [facility] Diastolic blood pressure 2021-09-02 02:40:00 83 mm[Hg] [facility] Heart rate 2021-09-02 02:40:00 83 /min [facility] Body temperature 2021-09-02 02:40:00 37.78 Glenny [facility] Respiratory rate 2021-09-02 02:40:00 18 /min [facility] Body weight 2021-09-02 02:40:00 50.485 kg [facility] BMI 2021-09-02 02:40:00 17.96 kg/m2 [facility] Oxygen saturation in Arterial blood by Pulse oximetry 2021-09-02 02:40:00 96 /min [facility] Systolic blood pressure 2021-07-28 06:00:00 126 mm[Hg] [facility] Diastolic blood pressure 2021-07-28 06:00:00 65 mm[Hg] [facility] Respiratory rate 2021-07-28 06:00:00 16 /min [facility] Oxygen saturation in Arterial blood by Pulse oximetry 2021-07-28 06:00:00 99 /min [facility] Heart rate 2021-07-28 05:00:00 67 /min [facility] Body temperature 2021-07-28 04:46:00 37.06 Glenny [facility] Body height 2021-07-28 04:46:00 167.6 cm [facility] Body weight 2021-07-28 04:46:00 44.815 kg [facility] BMI 2021-07-28 04:46:00 15.95 kg/m2 [facility] Procedures Procedure Date / Time Performed Performing Clinicia n Source TROPONIN I 2023-12-29 02:24:00 [facility] COMP. METABOLIC PANEL (27643) 2023-12-29 02:24:00 Juli Hough [facility] CBC WITH DIFF 2023-12-29 02:24:00 [facility] N-TERMINAL PRO-BNP 2023-12-29 02:24:00 Juli Hough [facility] PHYSICIAN ORDERS 2023-04-17 06:01:00 Doctor Unaapril signed, [place] [facility] CT CERVICAL SPINE WO CONTRAST 2023-01-04 17:53:02 Lacy Buchanan [facility] CT HEAD WO CONTRAST 2023-01-04 17:53:02 Lacy Buchanan [facility] XR HAND 3+ VW LEFT 2023-01-04 17:17:52 Lacy Buchanan [facility] XR WRIST 3+ VW LEFT 2023-01-04 17:17:52 Lacy Buchanan [facility] CONSENT/REFUSAL FOR DIAGNOSIS AND TREATMENT 2023-01-04 16:20:43 Doctor Unassigned, [place] [facility] CONSENT/REFUSAL FOR DIAGNOSIS AND TREATMENT 2022-12-12 15:09:45 Doctor Unassigned, [place] [facility] CBC WITH DIFF 2022-08-07 15:24[facility] 2022-08-07 05:01:00 Doctor Unas signed, [place] [facility] XR CHEST 1 VW 2022-07-09 14:05:47 Jigar Gao [facility] PHYSICIAN ORDERS 2022-02-28 06:01:00 Doctor Unas signed, [place] [facility] XR FOOT 3+ VW LEFT 2021-10-18 03:15:35 Urbano Schneider [facility] XR KNEE 3 VW BILATERAL 2021-10-18 03:15:35 Ced Schneider [facility] CONSENT/REFUSAL FOR DIAGNOSIS AND TREATMENT 2021-10-18 02:36:32 Doctor Unassigned, [place] [facility] XR HAND 3+ VW LEFT 2021-09-27 15:18:08 Lachelle Castrejon [facility] XR KNEE 3 VW RIGHT 2021-09-27 15:17:29 Lachelle Castrejon U [facility] NOTICE OF PRIVACY PRACTICES 2021-09-27 14:40:01 Doctor Unassigned, [place] [facility] CONSENT/REFUSAL FOR DIAGNOSIS AND TREATMENT 2021-09-27 14:39:36 Doctor Unassigned, [place] [facility] ASSIGNMENT OF BENEFITS 2021-09-27 14:38:29 Docto r Unassigned, [place] [facility] XR ELBOW >3 VW LEFT 2021-09-02 03:16:53 Galilea Hicks [facility] XR FOREARM 2 VW LEFT 2021-09-02 03:16:53 Mayra Hicks nnariel [facility] XR HUMERUS 2 VW LEFT 2021-09-02 03:16:53 Mayra Hicks [facility] CONSENT/REFUSAL FOR DIAGNOSIS AND TREATMENT 2021-09-02 02:32:15 Doctor Unassigned, [place] [facility] CT TRAUMA HEAD WO CONTRAST 2021-07-28 05:37:00 Liz Ford [facility] CT TRAUMA CERVICAL SPINE WO CONTRAST 2021-07-28 05:37:00 Liz Ford [facility] PHOSPHORUS 2021-06-21 15:00:00 Skip Baptiste [facility] URIC ACID 2021-06-21 15:00:00 Skip Baptiste [facility] MAGNESIUM 2021-06-21 15:00:00 Skip Baptiste [facility] VITAMIN B12, LEVEL 2021-06-21 15:00:00 Skip Baptiste Andriy [facility] IONIZED CALCIUM 2021-06-21 15:00:00 Skip Baptiste q [facility] HEPATIC FUNCTION PANEL (15624) (ALB,T.PRO,BILI T,BU/BC,ALT,AST,ALK PHOS) 2021-06-21 15:00:00 Skip Baptiste Andriy [facility] BASIC METABOLIC PANEL (NA, K, CL, CO2, GLUCOSE, BUN, CREATININE, CA) 2021-06-21 15:00:00 Skip Baptiste [facility] LIPID PANEL (92524)(TOTAL CHOLESTEROL, TRIGLYCERIDES, HDL) 2021-06-21 15:00:00 Skip Baptiste [facility] LITHIUM 2021-06-21 15:00:00 Skip Baptiste U [facility] CBC WITH DIFF 2021-06-21 15:00:00 Skip Baptiste Andriy [facility] VITAMIN D, 25-OH 2021-06-21 15:00:00 Skip Baptiste At iq [facility] PHYSICIAN ORDERS 2021-06-21 05:01:00 Doctor Sandie signed, [place] [facility] Encounters Start Date/Time End Date/Time Encounter Type Admission Type Attending [facility] Care Facility Care Department Encounter ID Source 2022-08-10 11:19:00 Outpatient [facility] [id number] 2021-09-27 09:56:03 Outpatient [facility] [id number] [facility] 2021-09-26 09:17:01 Outpatient [facility] [id number] [facility] 2021-09-25 13:48:03 Outpatient [facility] [id number] [facility] 2021-01-29 15:07:50 Emergency [facility] [id number] [facility] 2021-01-28 15:53:49 Emergency [facility] [id number] [facility] 2021-01-28 12:01:43 Emergency [facility] [id number] [facility] 2024-01-14 14:00:00 2024-01-14 14:25:49 Outpatient R SAMIR CHEUNG [facility] [id number] [facility] 2024-01-14 14:00:00 2024-01-14 14:25:49 Office Visit Samir Cheung [facility] [id number] [facility] 2023-12-28 20:46:00 2023-12-28 23:35:00 Emergency JULI SIMMONS TASHA CADIONY ERT [id number] [facility] 2023-12-28 20:46:00 2023-12-28 23:35:00 Emergency Juli Hough [facility] [id number] [facility] 2023-12-12 19:18:00 2023-12-12 21:02:00 Emergency BENIGNO ROBLES TIMOTHY [facility] ERT [id number] [facility] 2023-12-12 19:18:00 2023-12-12 21:02:00 Emergency Benigno Mathis [facility] [id number] [facility] 2023-11-07 08:15:00 2023-11-07 08:30:00 Train Announcer Visit Pob, [facility] Main Emile, Skip Andriy Pob, [facility] Main [facility] [id number] [facility] 2023-11-07 08:15:00 2023-11-07 08:15:00 Outpatient SKIP ALVARADO [facility] [id number] [facility] 2023-06-30 11:32:00 2023-06-30 14:23:00 Emergency X Lacy BUCHANAN [facility] ERT [id number] [facility] 2023-06-30 11:32:00 2023-06-30 14:23:00 Emergency Patria, K Maria Luz [facility] 1.2.114 350.1.13.10 4.2.7.2.686 [id number] [facility] 2023-04-17 08:15:00 2023-04-17 08:30:00 Train Announcer Visit Pob, Adc Lab Main Emile, Skip [facility] [employer] 1.2840.114 350.1.13.10 4.2.7.2.686 [id number] 353 [id number] [facility] 2023-04-17 08:15:00 2023-04-17 08:15:00 Outpatient R SKIP BAPTISTE [facility] [id number] [facility] 2023-04-17 00:00:00 2023-04-17 00:00:00 Orders Only Doctor Unassigned, [place] [facility] 1.2840.114 350.1.13.10 4.2.7.2.686 [id number] [id number] [facility] 2023-01-04 11:31:00 2023-01-04 14:05:00 Emergency X Lacy BUCHANAN [facility] ERT [id number] [facility] 2023-01-04 11:31:00 2023-01-04 14:05:00 Emergency Lacy Buchanan [facility] 1.2840.114 350.1.13.10 4.2.7.2.686 [id number] [facility] 2023-01-04 00:00:00 2023-01-04 00:00:00 Orders Only Doctor Unassigned, [place] [facility] 1.2840.114 350.1.13.10 4.2.7.2.686 [id number] [id number] [facility] 2022-12-12 10:15:00 2022-12-12 10:30:00 Train Announcer Visit Pob, Adc Lab Main Skip Baptiste AndriyMaria [facility] 1.2840.114 350.1.13.10 4.2.7.2.686 [id number] 353 [id number] [facility] 2022-12-12 10:15:00 2022-12-12 10:15:00 Outpatient SKIP ALVARADO [facility] [id number] [facility] 2022-12-12 00:00:00 2022-12-12 00:00:00 Orders Only Doctor Unassigned, [place] [facility] 1.2840.114 350.1.13.10 4.2.7.2.686 [id number] [id number] [facility] 2022-08-07 10:00:00 2022-08-07 10:15:00 Train Announcer Visit Latasha, [facility] 1.84.114 350.1.13.10 4.2.7.2.686 [id number] 353 [id number] [facility] 2022-08-07 10:00:00 2022-08-07 10:00:00 Outpatient Gustavo [facility] [id number] [facility] 2022-08-07 00:00:00 2022-08-07 00:00:00 Orders Only Doctor Unassigned, [place] [facility] 1.284.114 350.1.13.10 4.2.7.2.686 [id number] [id number] [facility] 2022-07-09 07:58:00 2022-07-09 09:34:00 Emergency X JIGAR GAO [facility] ERT [id number] [facility] 2022-07-09 07:58:00 2022-07-09 09:34:00 Emergency Jigar Gao [facility] 1.84.114 350.1.13.10 4.2.7.2.686 [id number] [facility] 2022-02-28 08:45:00 2022-02-28 09:00:00 Train Announcer Visit Latasha, Adc [facility] 1..840.114 350.1.13.10 4.2.7.2.686 [id number] [facility] 2022-02-28 08:45:00 2022-02-28 08:45:00 Outpatient R MADIHA CHOW [facility] [id number] [facility] 2022-02-28 00:00:00 2022-02-28 00:00:00 Orders Only Doctor Unassigned, [place] [facility] 1.2840.114 350.1.13.10 4.2.7.2.686 [id number] [facility] 2021-10-17 21:49:00 2021-10-17 23:05:00 Emergency X URBANO SCHNEIDER [facility] ERT [id number] [facility] 2021-10-17 21:49:00 2021-10-17 23:05:00 Emergency Urbano Schneider Lee [facility] 1.2840.114 350.1.13.10 4.2.7.2.686 [id number] [facility] 2021-09-27 09:35:31 2021-09-27 23:59:00 Hospital Encounter Radiology [facility] 1.2.840.114 350.1.13.10 4.2.7.2.686 [id number] [facility] 2021-09-27 10:30:00 2021-09-27 10:45:00 Train Announcer Visit Pob, Adc Lab Main Madiha Chow [facility] 1.2840.114 350.1.13.10 4.2.7.2.686 [id number] 353 [id number] [facility] 2021-09-27 09:39:12 2021-09-27 09:34:00 Outpatient R RADIOLOGY [facility] [id number] [facility] 2021-09-27 09:30:00 2021-09-27 09:34:00 Hospital Encounter Radiology [facility] 1.2.840.114 350.1.13.10 4.2.7.2.686 [id number] [facility] 2021-09-01 21:47:00 2021-09-01 23:53:00 Emergency X ALEX HICKS [facility] ERT [id number] [facility] 2021-09-01 21:47:00 2021-09-01 23:53:00 Emergency Alex Hicks [facility] 1.840.114 350.1.13.10 4.2.7.2.686 [id number] [facility] 2021-07-27 23:50:00 2021-07-28 01:46:00 Emergency X LIZ FORD [facility] ERT [id number] [facility] 2021-07-27 23:50:00 2021-07-28 01:46:00 Emergency Liz Ford [facility] 1.840.114 350.1.13.10 4.2.7.2.686 [id number] [facility] 2021-06-21 11:00:00 2021-06-21 11:15:00 Train Announcer Visit Pob, Adc Lab Main Skip Baptiste [facility] 1.84.114 350.1.13.10 4.2.7.2.686 [id number] [facility] 2021-06-21 11:00:00 2021-06-21 11:00:00 Outpatient R SKIP BAPTISTE [facility] [id number] [facility] 2021-06-21 00:00:00 2021-06-21 00:00:00 Orders Only Doctor Unassigned, [place] [facility] 1..114 350.1.13.10 4.2.7.2.686 [id number] [id number] [facility] 2021-06-15 09:24:00 2021-06-15 11:15:00 Emergency X VAUGHN BARBA [facility] ERT [id number] [facility] 2021-06-15 09:24:00 2021-06-15 11:15:00 Emergency Vaughn Barba [facility] 1.2.840.114 350.1.13.10 4.2.7.2.686 [id number] [facility] 2021-06-15 00:00:00 2021-06-15 00:00:00 Orders Only Doctor Unassigned, [place] [facility] 1.2.840.114 350.1.13.10 4.2.7.2.686 [id number] [facility] 2020-08-16 10:30:00 2020-08-16 10:30:00 Outpatient MADIHA COX [facility] [id number] [facility] 2020-07-08 10:10:00 2020-07-08 10:10:00 Outpatient JESSI SCHAFER [facility] [id number] [facility] 2020-07-07 08:50:00 2020-07-07 08:50:00 Outpatient JESSI SCHAFER [facility] [id number] [facility] 2020-06-15 10:10:00 2020-06-15 10:10:00 Outpatient JESSI SCHAFER [facility] [id number] [facility] 2020-05-02 13:30:00 2020-05-02 13:30:00 Outpatient WILLIAM CARRASCO [facility] [id number] [facility] 2020-04-15 08:15:00 2020-04-15 08:15:00 Outpatient WILLIAM CARRASCO [facility] [id number] [facility] 2020-01-26 08:45:00 2020-01-26 08:45:00 Outpatient SKIP ALVARADO [facility] [id number] [facility] 2019-12-18 10:00:00 2019-12-18 10:00:00 Outpatient SKIP ALVARADO [facility] [id number] [facility] 2019-09-17 08:45:00 2019-09-17 08:45:00 Outpatient R SKIP BAPTISTE [facility] [id number] [facility] 2019-04-14 10:17:35 2019-04-14 13:04:00 Emergency X SEVERINO TAYLOR [facility] ERT [id number] [facility] Results Test Description Test Time Test Comments Results Result Co mments Source [id number] 03:42:42* Test Item Value Reference Range Interpretation Comme nts NT-proBNP (test code = 54664-0) 61 pg/mL <=125 Lab Interpretation (test cod e = 97294-2) [facility] (05418)2023-12-29 03:34:40* Test Item Value Reference Range Interpretation Comme nts NA (test code = 5317355550) 139 mmol/L 135-145 K (test code = 6383096810) 4.2 mmol/L 3.5-5.0 CL (test code = 3612268021) 104 mmol/L 98-108 CO2 TOTAL (test code = 7981246600) 30 mmol/L 23-31 AGAP (test code = 0160875131) 5 2-16 BUN (test code = 8415618393) 18 mg/dL 7-23 GLUCOSE (test code = 1776454457) 84 mg/dL 70-110 CREATININE (test code = 2160-0) 0.87 mg/dL 0.50-1.04 TOTAL BILI (test code = 7045161306) 0.7 mg/dL 0.1-1.1 CALCIUM (test code = 2238166690) 10.0 mg/dL 8.6-10.6 T PROTEIN (test code = 9349672308) 8.4 g/dL 6.3-8.2 H ALBUMIN (test code = 8497416471) 4.6 g/dL 3.5-5.0 ALK PHOS (test code = 5555297895) 128 U/L 34-122 H ALTv (test code = 1742-6) 22 U/L 5-35 AST(SGOT) (test code = 8649709903) 29 U/L 13-40 eGFR (test code = 35773-3) 71.3 mL/min/1.73m2 CKD-EPI eGFR (2020). Assuming creatinine has been stable day-to-day for at least three months, the eGFR indicates Category G2 (60 - 89 mL/min/1.73 m2) Lab Interpretation (test code = 17603-9) Abnormal [facility] WITH [id number] 03:19:41* Test Item Value Reference Range Interpretation [...] g/dL 31.6-35.1 L RDW-SD (test code = 55894-8) 50.4 fL 39.0-49.9 H RDW-CV (test code = 788-0) 14.2 % 12.0-15.5 PLT (test code = 777-3) 357 166-358 MPV (test code = 04221-6) 10.5 fL 9.5-12.9 NRBC/100 WBC (test code = 9598422042) 0.0 0.0-10.0 NRBC x10^3 (test code = 9636152224) See_Comment [Automated [employer] ge] The system which generated this result transmitted reference range: 10*3/?L. The reference range was not used to interpret this result as normal/abnormal. GRAN MAT (NEUT) % (test code = 770-8) 62.9 % IMM GRAN % (test code = 2944389394) 0.30 % LYMPH % (test code = 736-9) 26.2 % MONO % (test code = 5905-5) 7.6 % EOS % (test code = 713-8) 1.8 % BASO % (test code = 706-2) 1.2 % GRAN MAT x10^3(ANC) (test code = 7440075157) 3.74 10*3/uL 1.88-7.09 IMM GRAN x10^3 (test code = 1602261822) 0.00-0.06 LYMPH x10^3 (test code = 731-0) 1.56 10*3/uL 1.32-3.29 MONO x10^3 (test code = 742-7) 0.45 10*3/uL 0.33-0.92 EOS x10^3 (test code = 711-2) 0.11 10*3/uL 0.03-0.39 BASO x10^3 (test code = 704-7) 0.07 10*3/uL 0.01-0.07 Lab Interpretation (test code = 36482-4) Abnormal [facility] WITH [id number] 15:39:13* Test Item Value Reference Range Interpretation [...] 32.1 g/dL 31.6-35.1 RDW-SD (test code = 55208-8) 51.9 fL 39.0-49.9 H RDW-CV (test code = 788-0) 14.9 % 12.0-15.5 PLT (test code = 777-3) 237 See_Comment [Automated [employer]] The system which generated this result transmitted reference range: 166 - 358 10*3/?L. The reference range was not used to interpret this result as normal/abnormal. MPV (test code = 80912-2) 10.8 fL 9.5-12.9 NRBC/100 WBC (test code = 0813115176) 0.0 See_Comment [Automated Code Blue ssage] The system which generated this result transmitted reference range: 0.0 - 10.0 /100 WBCs. The reference range was not used to interpret this result as normal/abnormal. NRBC x10^3 (test code = 1289772242) See_Comment [Automated [employer]] The system which generated this result transmitted reference range: 10*3/?L. The reference range was not used to interpret this result as normal/abnormal. GRAN MAT (NEUT) % (test code = 770-8) 69.9 % IMM GRAN % (test code = 6992513589) 0.20 % LYMPH % (test code = 736-9) 20.4 % MONO % (test code = 5905-5) 6.6 % EOS % (test code = 713-8) 2.0 % BASO % (test code = 706-2) 0.9 % GRAN MAT x10^3(ANC) (test code = 0995028735) 3.92 10*3/uL 1.88-7.09 IMM GRAN x10^3 (test code = 5266376757) 0.00-0.06 LYMPH x10^3 (test code = 731-0) 1.14 10*3/uL 1.32-3.29 L MONO x10^3 (test code = 742-7) 0.37 10*3/uL 0.33-0.92 EOS x10^3 (test code = 711-2) 0.11 10*3/uL 0.03-0.39 BASO x10^3 (test code = 704-7) 0.05 10*3/uL 0.01-0.07 Lab Interpretation (test code = 92336-2) [facility], [id number] 22:08:54* Test Item Value Reference Range Interpretation Comme nts VIT D 25OH (test code = 46161-9) 32 ng/mL 25-80 RAMO (test code = RAMO) Deficiency: <20 ng/mLInsufficiency : 20-24 ng/mLOptimal: 25-80 ng/mL Lab Interpretation (test code = 52003-0) [facility] B12, [id number] 21:35:01* Test Item Value Reference Range Interpretation Comme nts VIT B12 (test code = 4893408061) 578 pg/mL 240-930 RAMO (test code = RAMO) Biotin has been reported to cause a positive bias, interpret results relative to patient's use of biotin. Lab Interpretation (test code = 68674-5) Normal [facility] CenterIONIZED [id number] 20:34:50* Test Item Value Reference Range Interpretation Comme nts IONIZED CA (test code = 5631643350) 5.10 mg/dL 4.50-5.30 PH SERUM (test code = 8286512979) 7.35-7.45 Lab Interpretation (test cod e = 50107-8) Normal [facility]2022-03-23 16:30:28* Test Item Value Reference Range Interpretation Comme nts MAGNESIUM (test code = 2773678463) 1.7 mg/dL 1.7-2.4 Lab Interpretation (test cod e = 86952-5) Normal [facility] CenterLIP[facility] PANEL (58652)(TOTAL CHOLESTEROL, TRIGLYCERIDES, HDL)2021-06-21 16:30:28* Test Item Value Reference Range Interpretation Comme nts CHOL (test code = 9346857301) 135 mg/dL 120-200 HDL (test code = 1843072050) 70 mg/dL >50 HDLC RATIO (test code = 7731317547) See_Comment [Automated [employer]] The system which generated this result transmitted reference range: <=4.5. The reference range was not used to interpret this result as normal/abnormal. TRIG (test code = 5182843212) 55 mg/dL 30-170 LDL CHOL (test code = 33206-1) 54 mg/dL See_Comment [Automated [employer]] The system which generated this result transmitted reference range: <=160. The reference range was not used to interpret this result as normal/abnormal. VLDL (test code = 8693944362) 11 mg/dL 5-60 Lab Interpretation (test code = 44034-1) Normal [facility] METABOLIC PANEL (NA, K, CL, CO2, GLUCOSE, BUN, CREATININE, CA)2021-06-21 16:30:08* Test Item Value Reference Range Interpretation Comme nts NA (test code = 5487673387) 138 mmol/L 135-145 K (test code = 5724141744) 4.1 mmol/L 3.5-5.0 CL (test code = 5047589333) 105 mmol/L 98-108 CO2 TOTAL (test code = 0188556622) 28 mmol/L 23-31 AGAP (test code = 0643800334) 2-16 BUN (test code = 0797220515) 20 mg/dL 7-23 GLUCOSE (test code = 9712925828) 98 mg/dL 70-110 CREATININE (test code = 2462617555) 0.58 mg/dL 0.50-1.04 CALCIUM (test code = 1884708502) 9.1 mg/dL 8.6-10.6 eGFR (test code = 5879561445) mL/min/1.73m2 RAMO (test code = RAMO) Association [...] or urine or abnormalities in imaging tests). [facility]20[facility]-23 16:30:08* Test Item Value Reference Range Interpretation Comme nts PHOSPHORUS (test code = 1769601193) 3.4 mg/dL 2.5-5.0 Lab Interpretation (test cod e = 26915-9) Normal [facility] CenterHEPAT[facility] FUNCTION PAN[facility] (60208) (ALB,T.PRO,BILI T,BU/BC,ALT,AST,ALK PHOS)2021-06-21 16:29:47* Test Item Value Reference Range Interpretation Comme nts TOTAL BILI (test code = 1604856803) 0.4 mg/dL 0.1-1.1 BILI UNCON (test code = 3869534988) 0.4 mg/dL 0.1-1.1 BILI CONJ (test code = 4122514531) 0.0 mg/dL 0.0-0.3 T PROTEIN (test code = 0434929709) 6.3 g/dL 6.3-8.2 ALBUMIN (test code = 7849948570) 3.9 g/dL 3.5-5.0 ALK PHOS (test code = 0076137254) 85 U/L 34-122 ALTv (test code = 1742-6) 17 U/L 5-35 AST(SGOT) (test code = 6993678584) 20 U/L 13-40 Lab Interpretation (test cod e = 57342-4) Normal [facility] CenterURIC [id number] 16:29:32* Test Item Value Reference Range Interpretation Comme nts URIC ACID (test code = 8540892594) 3.3 mg/dL 2.9-6.0 Lab Interpretation (test cod e = 16318-6) Normal [facility]2022-[facility]-23 16:27:08* Test Item Value Reference Range Interpretation Comme nts [place] (test code = 1095107598) 0.9 mmol/L 0.6-1.2 RAMO (test code = RAMO) Toxic Range: ? Greater than 1.2 mmol/L Lab Interpretation (test code = 54830-6) Normal [facility] WITH [id number] 15:05:16* Test Item Value Reference Range Interpretation Comme nts WBC (test code = 6690-2) See_Comment [Automated messa ge] The system which generated this result transmitted reference range: 4.30 - 11.10 10*3/?L. The reference range was not used to interpret this result as normal/abnormal. RBC (test code = 789-8) See_Comment L [Automated messa ge] The system [...] g/dL 31.6-35.1 L RDW-SD (test code = 26513-1) 49.1 fL 39.0-49.9 RDW-CV (test code = 788-0) 13.5 % 12.0-15.5 PLT (test code = 777-3) See_Comment [Automated messa ge] The system which generated this result transmitted reference range: 166 - 358 10*3/?L. The reference range was not used to interpret this result as normal/abnormal. MPV (test code = 73720-3) 10.3 fL 9.5-12.9 NRBC/100 WBC (test code = 1482754944) See_Comment [Automated Code Blue ssage] The system which generated this result transmitted reference range: 0.0 - 10.0 /100 WBCs. The reference range was not used to interpret this result as normal/abnormal. NRBC x10^3 (test code = 9155594716) <0.01 See_Comment [Automated messa ge] The system which generated this result transmitted reference range: 10*3/?L. The reference range was not used to interpret this result as normal/abnormal. GRAN MAT (NEUT) % (test code = 770-8) 75.8 % IMM GRAN % (test code = 6684365523) 0.20 % LYMPH % (test code = 736-9) 15.7 % MONO % (test code = 5905-5) 5.9 % EOS % (test code = 713-8) 1.4 % BASO % (test code = 706-2) 1.0 % GRAN MAT x10^3(ANC) (test code = 6532980952) 3.73 10*3/uL 1.88-7.09 IMM GRAN x10^3 (test code = 0757636423) <0.03 0.00-0.06 LYMPH x10^3 (test code = 731-0) 0.77 10*3/uL 1.32-3.29 L MONO x10^3 (test code = 742-7) 0.29 10*3/uL 0.33-0.92 L EOS x10^3 (test code = 711-2) 0.07 10*3/uL 0.03-0.39 BASO x10^3 (test code = 704-7) 0.05 10*3/uL 0.01-0.07 Lab Interpretation (test code = 33542-8) Abnormal [facility] Notes Date/Time Note Provider Source 2023-12-28 23:34:34 PT D/C home. GCS15, VS stable. Given D/C paperwork. Pt ambulatory at time of discharge, taken by w/c to auto. Pt educated on med usage, follow up care, s/s worsening condition, need for hydration. Pt verbalized understanding.' Pt left ED in NAD Carol Matute RN [facility] 2023-12-28 20:34:23 Pt arrives ambulatory to ED brought in by caregiver after finding her on the bathroom floor face down. She has a large hematoma to left eye. Yvette Ford RN [facility] 2023-12-12 20:59:58 Pt dc'd via WC with [facility] caregiver. collar runner provided with DC instructions and v/u of worsening s/s. [facility] 2023-12-12 19:10:33 Patient arrived to ED via WC with staff member from [facility] c/o fall that happened around 1540 today. Staff states no LOC. Patient did hit head. There is a cut on her left shoulder and a swollen left ear. Doesn't take blood thinners. Frank Ji RN [facility] 2023-12-12 19:05:00 [facility] Emergency Department Note Patient Name: Coty Paz Date of : 1950 73 year old female Treatment Room: [facility] ED [facility] Primary Care Physician: Warren Daniels Patient Escorted by: Friend [6] Mode of Arrival: Personal means [1] EMS Treatment Prior to ED Arrival: CALCIMINER treatment: None Travel and Exposure Screening: Symptoms [...] brought to the emerged department from the [facility]. The patient fell and hit her head [...] Event User Comments 12/12/231911 Medical Screening Begins MATHIS BENIGNO -- 12/12/231911 First Provider Evaluation GEORGE NESBITT BENIGNO -- ED COURSE Diagnosis/Impression as of 12/12/232038 [...] on file Follow-up: Contact information for follow-up Warren Daniels Specialty: FM-FAMILY MEDICINE Relationship: PCP - General [address] [facility] [address] [facility] [id number] Instructions: As needed Electronically signed by: Benigno Mathis DO 12/12/232038 T [facility] 2023-11-07 08:15:00 Images from the original note were not included. Venipuncture collection performed by clean technique on the left anticubitus. Total of 1 attempts were made. Slight pressure and a bandage/dressing were applied to the site(s). The patient experienced no complications. The following specimens were processed according to instructions and sent to [facility] laboratories per lab order on 11/07/2023 : LT BLUE SST 1 RED LAV 2 PPT DK GREEN (LiHep) DK GREEN (SodH) ROJAS DK BLUE (K2) DK BLUE (S) ACD Blood Culture NIPT/NTD [facility] 2023-06-30 14:22:46 Pt given printed and [...] in no apparent distress, Patsy Martinez RN [facility] 2023-06-30 11:28:09 Pt has upper lip laceration and laceration in the inner bottom lip. Caregiver reports pt fell. Unsure of what occurred. Fall happened approx 45 mins ago. Carol Matute RN [facility] 2023-04-17 08:15:00 Images from the original note were not included. Venipuncture collection performed by clean technique on the left anticubitus. Total of 1 attempts were made. Slight pressure and a bandage/dressing were applied to the site(s). The patient experienced no complications. The following specimens were processed according to instructions and sent to [facility] laboratories per lab order on 04/17/2023 : LT BLUE SST 3 RED LAV 1 PPT DK GREEN (LiHep) DK GREEN (SodH) ROJAS DK BLUE (K2) DK BLUE (S) ACD Blood Culture NIPT/NTD Patient refused urine collection. Patient caregiver states patient never wants to leave urine sample. [facility] 2022-12-12 10:15:00 Formatting of this n ote [...] processed according to instructions and sent to [facility] laboratories per lab order on 12/12/2022: LT BLUE SST 3 RED LAV 2 PPT DK GREEN (LiHep) DK GREEN (SodH) ROJAS DK BLUE (K2) DK BLUE (S) ACD Blood Culture NIPT/NTD [facility]
--- NOTE | 2024-03-02 16:46 | RAD REPORT ---
EXAMINATION: ONE VIEW CHEST XR CLINICAL INDICATION: Female, 73 years old.,fall TECHNIQUE: Frontal chest projection is submitted. Examination is limited by patient positioning and t echnique. COMPARISON: 11/08/2014 chest radiograph. 01/22/2024 CT chest FINDINGS: The lungs are well inflated and clear. No pneumothorax or sizable effusion. The heart is normal in s ize. Mediastinal contours are unremarkable. IMPRESSION: No acute intrathoracic abnormalities.
--- NOTE | 2024-03-02 16:47 | RAD REPORT ---
EXAM: XR Knee Right 3 View HISTORY: [facility] MAIN fall Bed Name: IW9 COMPARISON: 09/02/2022 TECHNIQUE: 3 views of the right knee were obtained. FINDINGS: No knee effusion is seen. There is no evidence of acute fracture or dislocation. Stable ad vanced knee joint degenerative changes with marginal spurring and joint space loss. Corticated ossific densities posteriorly are also stable. No soft tissue swelling or other soft tissue abnormali ty is present. IMPRESSION: No evidence of acute osseous abnormality. Stable advanced degenerative changes as above.
--- NOTE | 2024-03-02 16:49 | RAD REPORT ---
EXAM: XR Knee Left 3 View HISTORY: [facility] MAIN fall Bed Name: [id number] COMPARISON: None TECHNIQUE: 3 views of the left knee were obtained. FINDINGS: No knee effusion is seen. There is no evidence of acute fracture or dislocation. Advanced tricompartmental osteoarthritic changes with joint space loss. No soft tissue swelling or other soft tissue abnormality is present. IMPRESSION: No evidence of acute osseous abnormality. Advanced tricompartmental osteoarthritic cutler es as above.
--- NOTE | 2024-03-02 17:01 | ER ---
Nurse's Notes [facility] Name: Coty Paz Age: 73 yrs Sex: Female : 1950 Arrival Date: 03/02/2024 Time: 14:36 Bed 12 Private MD: Diagnosis: Clavicle Pain;Knee Pain, bilateral Presentation: 03/02 15:03 Chief complaint: Patient states: slipped and fell in the bathroom, pt c/o chuy knee pain aa5 and chuy shoulder/clavicle pain. Coronavirus screen: At this time, the client does not indicate any symptoms associated with coronavirus-19. Ebola Screen: Patient denies travel to an Ebola-affected area in the 21 days before illness onset. Initial Sepsis Screen: Does the patient meet any 2 criteria? No. Patient's initial sepsis screen is negative. Does the patient have a suspected source of infection? No. Patient's initial sepsis screen is negative. Risk Assessment: Do you want to hurt yourself or someone else? Patient reports no desire to harm self or others. Onset of symptoms was March 02, 2024. 15:03 Acuity: ANGEL 4 aa5 15:03 Method Of Arrival: Ambulatory aa5 Historical: - Allergies: 15:01 No Known Allergies; aa5 - PMHx: 15:01 Bipolar disorder; Diabetes - NIDDM; aa5 15:01 Schizophrenia; Intellectual disability; aa5 - Immunization history:: Adult Immunizations unknown. - Infectious Disease History:: Denies. - Social history:: Smoking status: Patient denies any tobacco usage or history of. Screenin:30 [facility] ED Fall Risk Assessment (Adult) History of falling in the last 3 months, kb3 including since admission Yes- single mechanical fall (1 pt) Confusion or Disorientation No (0 pts) Intoxicated or Sedated No (0 pts) Impaired Gait No (0 pts) Mobility Assist Device Used No (0 pt) Altered Elimination No (0 pt) Score/Fall Risk Level 0 - 2 = Low Risk Oriented to surroundings. Abuse screen: Denies threats or abuse. Denies injuries from another. Nutritional screening: No deficits noted. Tuberculosis screening: No symptoms or risk factors identified. Assessment: 16:30 Pain: Complains of pain in right knee and left knee. kb3 16:30 Musculoskeletal: Swelling absent. kb3 16:30 General: Appears in no apparent distress. Behavior is calm, cooperative. kb3 Vital Signs: 15:03 BP 124 / 78; Pulse 76; Resp 18 S; Temp 97.9(TE); Pulse Ox 100% on R/A; aa5 ED Course: 14:40 Patient arrived in ED. ra3 14:47 Aurelio Swann MD is Attending Physician. ec2 15:01 Arm band placed on. aa5 15:04 Triage completed. aa5 16:00 CXR XRAY In Process Unspecified. EDMS 16:00 Knee Left 3 View XRAY In Process Unspecified. EDMS 16:00 Knee Right 3 View XRAY In Process Unspecified. EDMS 16:30 Patient has correct armband on for positive identification. Side rails up X2. Adult w/ kb3 patient. Provided Education on: POC. 16:30 No provider procedures requiring assistance completed. Patient did not have IV access kb3 during this emergency room visit. Administered Medications: 17:31 Drug: Acetaminophen PO 1000 mg PO once Route: PO; kb3 17:34 Follow up: Response: No adverse reaction; Medication Administered at Departure kb3 Medication: 16:30 VIS not applicable for this client. kb3 Outcome: 17:01 Discharge ordered by . ec2 17:34 Discharged to home ambulatory, with family, kb3 17:34 Condition: improved 17:34 Discharge instructions given to patient, Instructed on discharge instructions, follow up and referral plans. medication usage, Demonstrated understanding of instructions, follow-up care, medications, 17:34 Patient left the ED. kb3 Signatures: Dispatcher [employer] EDOH Halley Stone RN RN aa5 Melanie Gant RN RN kb3 Aurelio Swann MD MD 2 Shawna Watson ra3 Corrections: (The following items were deleted from the chart) 17:32 17:31 Musculoskeletal: Swelling absent kb3 kb3 17:33 17:31 General: Appears in no apparent distress. Behavior is calm, cooperative, kb3 kb3 17:33 17:31 Pain: Complains of pain in right knee and left knee kb3 kb3
--- NOTE | 2024-03-02 17:01 | EDPHYS ---
Physician Documentation [facility] Name: Coty Paz Age: 73 yrs Sex: Female : 1950 Arrival Date: 03/02/2024 Time: 14:36 Bed 12 Private MD: ED Physician Aurelio Swann HPI: 03/02 17:01 This 73 yrs old Female presents to ER via Ambulatory with complaints of Fall ec2 Injury. 17:01 Patient arrives today for evaluation after ground-level fall. Reports that she was ec2 walking subsequently slipped and fell, complaining of bilateral clavicle pain, bilateral knee pain. No LOC, no head strike, no head or neck pain.. Historical: - Allergies: 15:01 No Known Allergies; aa5 - PMHx: 15:01 Bipolar disorder; Diabetes - NIDDM; aa5 15:01 Schizophrenia; Intellectual disability; aa5 - Immunization history:: Adult Immunizations unknown. - Infectious Disease History:: Denies. - Social history:: Smoking status: Patient denies any tobacco usage or history of. ROS: 17:01 Constitutional: as per hpi ec2 Exam: 17:01 Constitutional: GEN: NAD Head: atraumatic Eyes: EOMI Ears: External ears are ec2 normal. CV: regular rate LUNGS: no respiratory distress ABD: non-distended SKIN: no evidence of rashes MSK: no evidence of trauma, bilateral upper extremities with good range of motion, bilateral lower extremities with good range of motion, no C/T/L spine deformities. Vital Signs: 15:03 BP 124 / 78; Pulse 76; Resp 18 S; Temp 97.9(TE); Pulse Ox 100% on R/A; aa5 MDM: 15:56 Medical Screening Exam initiated ec2 17:01 Data reviewed: vital signs, nurses notes. ED course: Patient arrives today for ec2 evaluation of upper chest pain along with bilateral knee pain. X-rays are unrevealing. Will discharge home, suspect contusion. Return precautions given.. 03/02 15:20 Order name: CXR XRAY; Complete Time: 16:50 ec2 03/02 15:20 Order name: Knee Left 3 View XRAY; Complete Time: 16:50 ec2 03/02 15:20 Order name: Knee Right 3 View XRAY; Complete Time: 16:50 ec2 Administered Medications: 17:31 Drug: Acetaminophen PO 1000 mg PO once Route: PO; kb3 17:34 Follow up: Response: No adverse reaction; Medication Administered at Departure kb3 Disposition Summary: 03/02/24 17:01 Discharge Ordered Notes: Location: Home ec2 Condition: Stable ec2 Diagnosis - Clavicle Pain ec2 - Knee Pain, bilateral ec2 Followup: ec2 - With: Private Physician - When: - Reason: Re-evaluation by your physician Discharge Instructions: - Discharge Summary Sheet ec2 - Acute Knee Pain, Adult, [id number] ec2 Forms: - Medication Reconciliation Form ec2 - Antibiotic Education ec2 - Prescription Opioid Use ec2 - Patient Portal Instructions ec2 - Leadership Thank You Letter ec2 Signatures: Dispatcher [employer] Halley Burch, RN RN aa5 Melanie Gant RN RN kb3 Aurelio Swann MD MD ec2 Corrections: (The following items were deleted from the chart) 15:20 15:20 Knee Left 3 View+RAD.[email or web address].[email or web address] ordered. EDMS EDMS 15:21 15:20 Knee Right 3 View+RAD.[email or web address].[email or web address] ordered. EDMS EDMS
[2024-03-02] MEDS ORDERED: ACETAMINOPHEN 500 MG TAB ONE (17:23)
[2024-03-02 17:48] VITALS: BP 124/78; TEMP 97.9; O2SAT 100
== END 2024-03-02 17:34 | disposition home or self-care (01) ==
LOC: ER 14:36
DX: M25.512 Pain in left shoulder (principal); M25.511 Pain in right shoulder; M25.562 Pain in left knee; M25.561 Pain in right knee; W01.0XXA Fall on same level from slipping, tripping and stumbling without subsequent striking against object, initial encounter
CPT/HCPCS: 71045; 99283